=== PATIENT | male | born 1950 | race Caucasian/White ===

== ENCOUNTER → 2017-09-28 07:57 | Outpatient (REF) | payer SELFPAY ==
[2017-09-28 09:06] LABS: Add Manual Diff / Slide Review NO; Basophils Percent Auto 1.2 % (0-2); Eosinophils Percent Auto 3.4 % (2-4); Hematocrit 27.6 % (41-53); Hemoglobin 9.1 g/dL (13.5-17.5); Lymphocytes Percent Auto 16.6 % (25-40); Mean Corpuscular HGB Conc 32.9 % (30-36); Mean Corpuscular Hemoglobin 28.8 PG (26-34); Mean Corpuscular Volume 87.6 fL (80-100); Monocytes Percent Auto 5.5 % (3-14); Neutrophils Absolute Auto 4300 /uL (3000-5900); Neutrophils Percent Auto 73.3 % (50-75); Platelet Count 416 X10^3/uL (150-400); Red Blood Cell Count 3.15 X10^6/uL (4.5-5.9); Red Cell Distribution Width 15.2 % (11.6-14.8); White Blood Cell Count 5.8 X10^3/uL (4.5-11.0)
[2017-09-28 09:36] LABS: BUN Creatinine Ratio 14.5 (6-22); Calcium 8.5 mg/dL (8.4-10.2); Estimated Glomerular Filt Rate 20.1 mL/min (>60); Glucose 106 mg/dL (80-110); HEMOLYSIS < 15 (0-50); Potassium 4.5 mmol/L (3.4-5.1); Sodium 141 mmol/L (137-145)
== END ==
LOC: LAB 07:57
PROVIDERS: Visit Provider Internal Medicine
DX: L03.90 Cellulitis, unspecified (principal)
CPT/HCPCS: 36415; 80048; 85025

== ENCOUNTER → 2017-10-05 09:02 | Outpatient (REF) | payer SELFPAY ==
[2017-10-05 09:21] LABS: Add Manual Diff / Slide Review NO; Basophils Percent Auto 1.1 % (0-2); Eosinophils Percent Auto 4.7 % (2-4); Hematocrit 27.7 % (41-53); Hemoglobin 9.2 g/dL (13.5-17.5); Lymphocytes Percent Auto 17.5 % (25-40); Mean Corpuscular HGB Conc 33.1 % (30-36); Mean Corpuscular Hemoglobin 28.6 PG (26-34); Mean Corpuscular Volume 86.5 fL (80-100); Monocytes Percent Auto 6.1 % (3-14); Neutrophils Absolute Auto 4300 /uL (3000-5900); Neutrophils Percent Auto 70.6 % (50-75); Platelet Count 353 X10^3/uL (150-400); Red Blood Cell Count 3.21 X10^6/uL (4.5-5.9); Red Cell Distribution Width 15.3 % (11.6-14.8); White Blood Cell Count 6.1 X10^3/uL (4.5-11.0)
[2017-10-05 10:00] LABS: BUN Creatinine Ratio 17.7 (6-22); Calcium 8.6 mg/dL (8.4-10.2); Estimated Glomerular Filt Rate 20.1 mL/min (>60); Glucose 87 mg/dL (80-110); HEMOLYSIS < 15 (0-50); Potassium 4.4 mmol/L (3.4-5.1); Sodium 142 mmol/L (137-145)
== END ==
LOC: LAB 09:02
PROVIDERS: Visit Provider Internal Medicine
DX: D64.9 Anemia, unspecified (principal); L03.90 Cellulitis, unspecified
CPT/HCPCS: 80048; 85025

== ENCOUNTER → 2017-10-06 11:52 | Outpatient (REF) | payer SELFPAY ==
[2017-10-06 12:47] LABS: Clostridium Difficile Tox PCR NEGATIVE for C.diff
== END ==
LOC: LAB 11:52
PROVIDERS: Visit Provider Internal Medicine
DX: R19.7 Diarrhea, unspecified (principal)
CPT/HCPCS: 87493

== ENCOUNTER 2017-10-21 15:41 | Inpatient (IN) | payer OTHER, SELFPAY ==
[2017-10-21 15:43] VITALS: BP 155/59; PULSE 64; RESP 24; TEMP 36.8; O2SAT 91
--- NOTE | 2017-10-21 15:48 | DI.US.S_ITS ---
PROCEDURE: US PERIPH VENOUS LOW EXTREM BI INDICATIONS: r/o DVT TECHNIQUE: Real-time imaging, as well as color and pulse Doppler interrogation, were performed of the deep veins of both legs from the inguinal ligament to the popliteal fossa. COMPARISON: None. FINDINGS: The deep veins are normally compressible, and free of intraluminal thrombus. Color and pulse Doppler demonstrate normal phasic intravascular flow. There is normal augmentation response to distal compression maneuver. IMPRESSION: Negative for deep venous thrombosis. Note: Concordant preliminary findings given by the first sampler upon the completion of the examination to Dr. Cotto at 1620 hrs. [place] time on October 21, 2017. Dictated by: Vikas Tejada M.D. on 10/21/2017 at 15:26 Approved by: Vikas Tejada M.D. on 10/21/2017 at 15:27
--- NOTE | 2017-10-21 15:48 | DI.RAD.S_ITS ---
PROCEDURE: XR CHEST 1V INDICATIONS: shortness of breath TECHNIQUE: One view of the chest was acquired. COMPARISON: None. FINDINGS: Surgical changes and devices: Right internal jugular vein central venous catheter is present, tip of which is in the mid SVC. Lungs and pleura: No pleural effusions or pneumothorax. Lung volumes are low with bilateral mid and lower lung atelectasis versus pneumonia. Mediastinum: Mediastinal contours appear normal. Heart size is enlarged. Bones and chest wall: No suspicious bony lesions. Overlying soft tissues appear unremarkable. IMPRESSION: 1. Low lung volumes with bilateral atelectasis versus pneumonia. 2. Cardiomegaly. Dictated by: Andrea Munguia M.D. on 10/21/2017 at 16:03 Approved by: Andrea Munguia M.D. on 10/21/2017 at 16:04
[2017-10-21 16:38] LABS: Add Manual Diff / Slide Review NO; Basophils Percent Auto 0.8 % (0-2); Eosinophils Percent Auto 5.5 % (2-4); Hemoglobin 7.6 g/dL (13.5-17.5); Lymphocytes Percent Auto 11.7 % (25-40); Mean Corpuscular HGB Conc 33.2 % (30-36); Mean Corpuscular Hemoglobin 29.5 PG (26-34); Mean Corpuscular Volume 88.8 fL (80-100); Monocytes Percent Auto 6.8 % (3-14); Neutrophils Absolute Auto 5500 /uL (3000-5900); Neutrophils Percent Auto 75.2 % (50-75); Platelet Count 313 X10^3/uL (150-400); Red Blood Cell Count 2.59 X10^6/uL (4.5-5.9); Red Cell Distribution Width 16.5 % (11.6-14.8); White Blood Cell Count 7.3 X10^3/uL (4.5-11.0)
--- NOTE | 2017-10-21 16:43 | ED.SOB ---
HPI - SOB/Dyspnea General Chief Complaint: Shortness of Breath/Dyspnea Stated Complaint: Shortness of Breath / Syncopal Time Seen by Provider: 10/21/17 15:46 History of Present Illness Patient is a 67-year-old male who presents with increasing shortness of breath. 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 He also has left hand cellulitis diabetes hypertension and severe peripheral vascular disease. Today he is noted to be getting severely short of breath with minimal exertion. He laid down where he became unresponsive for brief period of time. His oxygen levels decreased quite significantly. No known or obvious aspiration. He also has renal failure with a creatinine of 4.2 not currently on dialysis thought to be due from vancomycin and other medications. He is still complaining of ?air hunger.? Related Data Home Medications Medication Instructions Recorded Confirmed Flush 1 dose DAILY 10/21/17 10/21/17 Humalog U-100 Insulin 1 dose SUB-Q DIRECTED 10/21/17 10/21/17 acetaminophen 650 mg PO Q4H PRN MDD 3000 mg 10/21/17 10/21/17 albuterol sulfate 1 vial INHALATION Q4H PRN 10/21/17 10/21/17 amlodipine 10 mg PO QPM 10/21/17 10/21/17 ascorbic acid (vitamin C) 250 mg PO DAILY 10/21/17 10/21/17 bisacodyl 5 - 10 mg PO PRN PRN 10/21/17 10/21/17 bisacodyl 10 mg FL DAILY PRN 10/21/17 10/21/17 bupropion HCl 200 mg PO QPM 10/21/17 10/21/17 cholecalciferol (vitamin D3) 2,000 unit PO DAILY 10/21/17 10/21/17 clonazepam 0.5 mg PO TID PRN MDD 3 10/21/17 10/21/17 clopidogrel 75 mg PO DAILY 10/21/17 10/21/17 esomeprazole magnesium [Nexium] 40 mg PO DAILY 10/21/17 10/21/17 ferrous sulfate 325 mg PO BID 10/21/17 10/21/17 fluticasone 1 spray INTRANASAL BID 10/21/17 10/21/17 furosemide 40 mg PO .ONCE 10/21/17 10/21/17 furosemide 60 mg PO DAILY 10/21/17 10/21/17 hydralazine 25 mg PO TID 10/21/17 10/21/17 insulin glargine 55 units SUB-Q DAILY 10/21/17 10/21/17 levothyroxine 200 mcg PO DAILY 10/21/17 10/21/17 loperamide 2 mg PO Q4H PRN 10/21/17 10/21/17 magnesium hydroxide [Milk of 30 ml PO PRN PRN 10/21/17 10/21/17 Magnesia] melatonin 5 mg PO BEDTIME 10/21/17 10/21/17 metoprolol tartrate 25 mg PO BID 10/21/17 10/21/17 mirtazapine 15 mg PO BEDTIME 10/21/17 10/21/17 multivitamin with minerals 1 tab PO DAILY 10/21/17 10/21/17 oxycodone 5 mg PO Q4H PRN 10/21/17 10/21/17 oxycodone 10 mg PO Q4H PRN 10/21/17 10/21/17 piperacillin-tazobactam [Zosyn] 1 dose IV BID 10/21/17 10/21/17 simvastatin 40 mg PO QPM 10/21/17 10/21/17 sodium phosphates [Fleet Enema] 1 dose FL PRN PRN 10/21/17 10/21/17 tamsulosin 0.4 mg PO QPM 10/21/17 10/21/17 Allergies Allergy/AdvReac Type Severity Reaction Status Date / Time INGREDIENT: NKA - NO KNOWN Allergy Unknown Uncoded 10/21/17 15:43 ALLERGIES Review of Systems Review of Systems All systems reviewed & are unremarkable except as noted in HPI and below Constitutional Denies chills, Denies fever(s), Denies lethargy and Denies weakness Cardiovascular Reports dyspnea Comments: Syncopal episode Respiratory Reports chest congestion, Denies hemoptysis, Denies excessive phlegm production and Reports dyspnea Gastrointestinal Gastrointestinal: Denies abdominal pain, Denies change in bowel habits, Denies diarrhea, Denies nausea and Denies vomiting Musculoskeletal Denies back pain, Denies muscle weakness, Denies numbness and Denies tingling Integumentary/Breasts Reports as per HPI, Denies pruritus, Denies erythema, Denies rash and Reports wounds Neurologic Denies numbness, Denies tingling and Denies weakness [facility] Medical History Chronic kidney disease (CKD) stage G4/A1, severely decreased glomerular filtration rate (GFR) between 15-29 mL/min/1.73 square meter and albuminuria creatinine ratio less than 30 mg/g (Acute) Diabetes (Acute) Hypertension (Acute) Peripheral vascular disease (Acute) Surgical History Above knee amputation of left lower extremity (Acute) Above knee amputation of right lower extremity (Acute) Exam Initial Vital Signs Initial Vital Signs: Vital Signs Temperature 98.3 F 10/21/17 15:43 Pulse Rate 64 10/21/17 15:43 Respiratory Rate 24 10/21/17 15:43 Blood Pressure 155/59 H 10/21/17 15:43 Pulse Oximetry 91 10/21/17 15:43 Const General: cooperative and well developed Nutritional Appearance: well nourished Orientation: alert, awake, oriented x3 and not confused Resp Effort & Inspection: normal respiratory effort Auscultation: rales and rhonchi Cardio Rhythm: regular rhythm Heart Sounds: S1 normal and S2 normal Skin Other: Left hand cellulitis currently dressed does not appear to be acute. Chronic stump wounds also in dressing bandage Neuro General: alert, awake and oriented x3 Course Orders Ordered: ED Orders 10/21/17 15:48 Consult to Respiratory Therapy Evaluate & Treat US periph venous low extrem bi Stat XR chest 1V Stat EKG-12 Lead Stat 10/21/17 16:30 B Type Natriuretic Peptide Stat Complete Blood Count AUTO DIFF Stat Comprehensive Metabolic Panel Stat Lactate (Lactic Acid) Stat Magnesium Stat Partial Thromboplastin Time Stat Prothrombin Time INR Stat Troponin with CK Cardiac Panel Stat Heparin Sodium/Dextrose (Heparin Drip) 25,000 unit in 500 mls @ 0 mls/hr IV CONT ULICES; Protocol Last Admin: 10/21/17 18:06 Dose: 18 units/kg/hr, 44.253 mls/hr Discontinued Medications Furosemide (Lasix) 60 mg IV NOW ONE Stop: 10/21/17 17:22 Last Admin: 10/21/17 17:55 Dose: 60 mg Heparin Sodium (Porcine) (Heparin) 10,000 unit IV NOW ONE Stop: 10/21/17 18:19 Last Admin: 10/21/17 18:24 Dose: 10,000 unit Vital Signs - 8 hr 10/21/17 15:43 10/21/17 17:00 10/21/17 17:52 Temperature 98.3 F Pulse Rate 64 66 66 Respiratory Rate 24 14 Blood Pressure 155/59 H Blood Pressure [Right Arm] 181/61 H Pulse Oximetry 91 94 10/21/17 18:00 Temperature Pulse Rate 62 Respiratory Rate Blood Pressure Blood Pressure [Right Arm] 175/70 H Pulse Oximetry 97 MDM - SOB/Dyspnea Lab Data Result diagrams: 10/21/17 16:30 10/21/17 16:30 Lab Results 10/21/17 10/21/17 10/21/17 Range/Units 16:30 16:30 16:30 WBC 7.3 (4.5-11.0) X10^3/uL RBC 2.59 L (4.5-5.9) X10^6/uL Hgb 7.6 L (13.5-17.5) g/dL Hct 23.0 L (41-53) % MCV 88.8 (80-100) fL MCH 29.5 (26-34) PG MCHC 33.2 (30-36) % RDW 16.5 H (11.6-14.8) % Plt Count 313 (150-400) X10^3/uL Neut % (Auto) 75.2 H (50-75) % Lymph % (Auto) 11.7 L (25-40) % [place] % (Auto) 6.8 (3-14) % Eos % (Auto) 5.5 H (2-4) % Baso % (Auto) 0.8 (0-2) % Neut # (Auto) 5500 (3946-5695) /uL PT 12.3 (10.1-12.7) SECONDS INR 1.1 (0.9-1.3) APTT 31 (26.4-36.2) SECONDS Sodium 144 (137-145) mmol/L Potassium 5.5 H (3.4-5.1) mmol/L Chloride 114 H (98-107) mmol/L Carbon Dioxide 15 L (22-32) mmol/L BUN 70 H (9-20) mg/dL Creatinine 4.50 H (0.66-1.25) mg/dL Estimated GFR 13.1 L (>60) mL/min BUN/Creatinine Ratio 15.6 (6-22) Glucose 140 H (80-110) mg/dL Lactate (0.7-2.1) mmol/L Calcium 8.6 (8.4-10.2) mg/dL Magnesium 2.1 (1.6-2.3) mg/dL Total Bilirubin 0.2 (0.2-1.3) mg/dL AST 33 (17-59) IU/L ALT 37 (21-72) IU/L Alkaline Phosphatase 124 (38-126) U/L Total Creatine Kinase 81 (55-170) U/L Troponin I < 0.012 (0.01-0.034) ng/mL B-Natriuretic Peptide 1080.0 H (<100) Total Protein 7.2 (6.3-8.2) g/dL Albumin 3.3 L (3.5-5.0) g/dL Globulin 3.9 (1.7-4.1) g/dL Albumin/Globulin Ratio 0.8 L (1.0-2.8) // Range/Units 16:30 WBC (4.5-11.0) X10^3/uL RBC (4.5-5.9) X10^6/uL Hgb (13.5-17.5) g/dL Hct (41-53) % MCV (80-100) fL MCH (26-34) PG MCHC (30-36) % RDW (11.6-14.8) % Plt Count (150-400) X10^3/uL Neut % (Auto) (50-75) % Lymph % (Auto) (25-40) % [place] % (Auto) (3-14) % Eos % (Auto) (2-4) % Baso % (Auto) (0-2) % Neut # (Auto) (3511-3925) /uL PT (10.1-12.7) SECONDS INR (0.9-1.3) APTT (26.4-36.2) SECONDS Sodium (137-145) mmol/L Potassium (3.4-5.1) mmol/L Chloride (98-107) mmol/L Carbon Dioxide (22-32) mmol/L BUN (9-20) mg/dL Creatinine (0.66-1.25) mg/dL Estimated GFR (>60) mL/min BUN/Creatinine Ratio (6-22) Glucose (80-110) mg/dL Lactate 0.5 L (0.7-2.1) mmol/L Calcium (8.4-10.2) mg/dL Magnesium (1.6-2.3) mg/dL Total Bilirubin (0.2-1.3) mg/dL AST (17-59) IU/L ALT (21-72) IU/L Alkaline Phosphatase (38-126) U/L Total Creatine Kinase (55-170) U/L Troponin I (0.01-0.034) ng/mL B-Natriuretic Peptide (<100) Total Protein (6.3-8.2) g/dL Albumin (3.5-5.0) g/dL Globulin (1.7-4.1) g/dL Albumin/Globulin Ratio (1.0-2.8) Imaging Data Chest x-ray: Radiologist's impression: PROCEDURE: XR CHEST 1V INDICATIONS: shortness of breath TECHNIQUE: One view of the chest was acquired. COMPARISON: None. FINDINGS: Surgical changes and devices: Right internal jugular vein central venous catheter is present, tip of which is in the mid SVC. Lungs and pleura: No pleural effusions or pneumothorax. Lung volumes are low with bilateral mid and lower lung atelectasis versus pneumonia. Mediastinum: Mediastinal contours appear normal. Heart size is enlarged. Bones and chest wall: No suspicious bony lesions. Overlying soft tissues appear unremarkable. IMPRESSION: 1. Low lung volumes with bilateral atelectasis versus pneumonia. 2. Cardiomegaly. Venous US: Radiologist's impression: PROCEDURE: US PERIPH VENOUS LOW EXTREM BI INDICATIONS: r/o DVT TECHNIQUE: Real-time imaging, as well as color and pulse Doppler interrogation, were performed of the deep veins of both legs from the inguinal ligament to the popliteal fossa. COMPARISON: None. FINDINGS: The deep veins are normally compressible, and free of intraluminal thrombus. Color and pulse Doppler demonstrate normal phasic intravascular flow. There is normal augmentation response to distal compression maneuver. IMPRESSION: Negative for deep venous thrombosis. Note: Concordant preliminary findings given by the enterprise systems engineer upon the completion of the examination to Dr. Cotto at 1620 hrs. [place] time on October 21, 2017. Dictated by: Vikas Tejada M.D. on 10/21/2017 at 15:26 ECG Data Attestation: I personally reviewed and interpreted this ECG as follows: Prior ECG tracings: not available for review Interpretation: Normal sinus rhythm rate [address] changes no prior to compare MDM Narrative Medical decision making narrative: Patient had a syncopal hypoxic episode concern for pulmonary embolism. However due to his severe of renal disease makes him a poor candidate for a CTA. I have tried to get in touch with multiple flame annealing machine setter and transfer. However this has been a challenging problem, there are no beds available for transfer.. I did finally talked with a [place] physician, who spoke with the flame annealing machine setter whose recommendation was if suspicion for pulmonary embolism the then to treat as such. No need to do a CT. Patient is not on dialysis he is still making urine. May stay at [facility] and be treated for CHF her and pulmonary embolisms. This is likely the patient also have congestive heart failure exacerbation. BNP is elevated he states that he does have a history of congestive heart failure. He has urinated quite a bit after IV Lasix. He is on minimal oxygen. At this point I do not believe him to need emergent dialysis for congestive heart failure. Currently treating for both. I have discussed risks and benefits with both patient and . They are understandable and agreeable. Dr. Albarran has been updated patient's symptoms and test results accepts patient off for now. Discharge Plan Departure Patient Disposition: Admitted As Inpatient Clinical Impression: Congestive heart failure, Pulmonary embolism, Acute and chronic respiratory failure with hypoxia Prescriptions: No Action furosemide 40 mg tablet 60 mg PO DAILY RF: 0 acetaminophen 325 mg Tablet 650 mg PO Q4H MDD 3000 mg PRN (Reason: Fever Or Pain) RF: 0 insulin glargine 100 unit/mL Solution 55 units Sub-Q DAILY RF: 0 hydralazine 25 mg Tablet 25 mg PO TID RF: 0 clopidogrel 75 mg tablet 75 mg PO DAILY RF: 0 simvastatin 40 mg Tablet 40 mg PO QPM RF: 0 tamsulosin 0.4 mg capsule,extended release 24hr 0.4 mg PO QPM RF: 0 piperacillin-tazobactam [Zosyn] 3.375 gram Recon Soln 1 dose IV BID RF: 0 ascorbic acid (vitamin C) 250 mg Tablet 250 mg PO DAILY RF: 0 amlodipine 10 mg Tablet 10 mg PO QPM RF: 0 ferrous sulfate 325 mg (65 mg iron) Tablet 325 mg PO BID RF: 0 esomeprazole magnesium [Nexium] 40 mg Capsule,Delayed Release(Dr/Ec) 40 mg PO DAILY RF: 0 levothyroxine 200 mcg Tablet 200 mcg PO DAILY RF: 0 multivitamin with minerals Tablet 1 tab PO DAILY RF: 0 mirtazapine 15 mg tablet,disintegrating 15 mg PO BEDTIME RF: 0 fluticasone 50 mcg/actuation spray,suspension 1 spray Intranasal BID RF: 0 bupropion HCl 200 mg Tablet Extended Release 12 Hr 200 mg PO QPM RF: 0 metoprolol tartrate 25 mg Tablet 25 mg PO BID RF: 0 melatonin 5 mg Tablet 5 mg PO BEDTIME RF: 0 cholecalciferol (vitamin D3) 2,000 unit Capsule 2,000 unit PO DAILY RF: 0 Flush 1 dose DAILY RF: 0 Humalog U-100 Insulin 1 dose Sub-Q DIRECTED RF: 0 furosemide 40 mg Tablet 40 mg PO .ONCE RF: 0 loperamide 2 mg Capsule 2 mg PO Q4H PRN (Reason: Diarrhea) RF: 0 clonazepam 0.5 mg Tablet 0.5 mg PO TID MDD 3 PRN (Reason: Anxiety) RF: 0 magnesium hydroxide [Milk of Magnesia] 400 mg/5 mL Suspension 30 ml PO PRN PRN (Reason: Constipation) RF: 0 bisacodyl 10 mg Suppository 10 mg FL DAILY PRN (Reason: Constipation) RF: 0 sodium phosphates [Fleet Enema] 19-7 gram/118 mL Enema 1 dose FL PRN PRN (Reason: Constipation) RF: 0 oxycodone 5 mg Tablet 5 mg PO Q4H PRN (Reason: pain level 3-6) RF: 0 oxycodone 5 mg Tablet 10 mg PO Q4H PRN (Reason: Pain (Scale Score 7-10)) RF: 0 bisacodyl 5 mg Tablet 5 - 10 mg PO PRN PRN (Reason: Constipation) RF: 0 albuterol sulfate 1 vial Inhalation Q4H PRN (Reason: Shortness Of Breath) RF: 0
[2017-10-21 16:45] LABS: INR 1.1 (0.9-1.3); Prothrombin Time 12.3 SECONDS (10.1-12.7)
[2017-10-21 16:48] LABS: PTT Partial Thromboplastin Tim 31 SECONDS (26.4-36.2)
[2017-10-21 16:49] LABS: Lactate (Lactic Acid) 0.5 mmol/L (0.7-2.1)
--- NOTE | 2017-10-21 16:49 | ED_ITS ---
HPI - SOB/Dyspnea General Chief Complaint: Shortness of Breath/Dyspnea Stated Complaint: Shortness of Breath / Syncopal Time Seen by Provider: 10/21/17 15:46 History of Present Illness Patient is a 67-year-old male who presents with increasing shortness of breath. 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 He also has left hand cellulitis diabetes hypertension and severe peripheral vascular disease. Today he is noted to be getting severely short of breath with minimal exertion. He laid down where he became unresponsive for brief period of time. His oxygen levels decreased quite significantly. No known or obvious aspiration. He also has renal failure with a creatinine of 4.2 not currently on dialysis thought to be due from vancomycin and other medications. He is still complaining of ?air hunger.? Related Data Home Medications Medication Instructions Recorded Confirmed Flush 1 dose DAILY 10/21/17 10/21/17 Humalog U-100 Insulin 1 dose SUB-Q DIRECTED 10/21/17 10/21/17 acetaminophen 650 mg PO Q4H PRN MDD 3000 mg 10/21/17 10/21/17 albuterol sulfate 1 vial INHALATION Q4H PRN 10/21/17 10/21/17 amlodipine 10 mg PO QPM 10/21/17 10/21/17 ascorbic acid (vitamin C) 250 mg PO DAILY 10/21/17 10/21/17 bisacodyl 5 - 10 mg PO PRN PRN 10/21/17 10/21/17 bisacodyl 10 mg OR DAILY PRN 10/21/17 10/21/17 bupropion HCl 200 mg PO QPM 10/21/17 10/21/17 cholecalciferol (vitamin D3) 2,000 unit PO DAILY 10/21/17 10/21/17 clonazepam 0.5 mg PO TID PRN MDD 3 10/21/17 10/21/17 clopidogrel 75 mg PO DAILY 10/21/17 10/21/17 esomeprazole magnesium [Nexium] 40 mg PO DAILY 10/21/17 10/21/17 ferrous sulfate 325 mg PO BID 10/21/17 10/21/17 fluticasone 1 spray INTRANASAL BID 10/21/17 10/21/17 furosemide 40 mg PO .ONCE 10/21/17 10/21/17 furosemide 60 mg PO DAILY 10/21/17 10/21/17 hydralazine 25 mg PO TID 10/21/17 10/21/17 insulin glargine 55 units SUB-Q DAILY 10/21/17 10/21/17 levothyroxine 200 mcg PO DAILY 10/21/17 10/21/17 loperamide 2 mg PO Q4H PRN 10/21/17 10/21/17 magnesium hydroxide [Milk of 30 ml PO PRN PRN 10/21/17 10/21/17 Magnesia] melatonin 5 mg PO BEDTIME 10/21/17 10/21/17 metoprolol tartrate 25 mg PO BID 10/21/17 10/21/17 mirtazapine 15 mg PO BEDTIME 10/21/17 10/21/17 multivitamin with minerals 1 tab PO DAILY 10/21/17 10/21/17 oxycodone 5 mg PO Q4H PRN 10/21/17 10/21/17 oxycodone 10 mg PO Q4H PRN 10/21/17 10/21/17 piperacillin-tazobactam [Zosyn] 1 dose IV BID 10/21/17 10/21/17 simvastatin 40 mg PO QPM 10/21/17 10/21/17 sodium phosphates [Fleet Enema] 1 dose OR PRN PRN 10/21/17 10/21/17 tamsulosin 0.4 mg PO QPM 10/21/17 10/21/17 Allergies Allergy/AdvReac Type Severity Reaction Status Date / Time INGREDIENT: NKA - NO KNOWN Allergy Unknown Uncoded 10/21/17 15:43 ALLERGIES Review of Systems Review of Systems All systems reviewed & are unremarkable except as noted in HPI and below Constitutional Denies chills, Denies fever(s), Denies lethargy and Denies weakness Cardiovascular Reports dyspnea Comments: Syncopal episode Respiratory Reports chest congestion, Denies hemoptysis, Denies excessive phlegm production and Reports dyspnea Gastrointestinal Gastrointestinal: Denies abdominal pain, Denies change in bowel habits, Denies diarrhea, Denies nausea and Denies vomiting Musculoskeletal Denies back pain, Denies muscle weakness, Denies numbness and Denies tingling Integumentary/Breasts Reports as per HPI, Denies pruritus, Denies erythema, Denies rash and Reports wounds Neurologic Denies numbness, Denies tingling and Denies weakness [facility]LY [facility] Medical History Chronic kidney disease (CKD) stage G4/A1, severely decreased glomerular filtration rate (GFR) between 15-29 mL/min/1.73 square meter and albuminuria creatinine ratio less than 30 mg/g (Acute) Diabetes (Acute) Hypertension (Acute) Peripheral vascular disease (Acute) Surgical History Above knee amputation of left lower extremity (Acute) Above knee amputation of right lower extremity (Acute) Exam Initial Vital Signs Initial Vital Signs: Vital Signs Temperature 98.3 F 10/21/17 15:43 Pulse Rate 64 10/21/17 15:43 Respiratory Rate 24 10/21/17 15:43 Blood Pressure 155/59 H 10/21/17 15:43 Pulse Oximetry 91 10/21/17 15:43 Const General: cooperative and well developed Nutritional Appearance: well nourished Orientation: alert, awake, oriented x3 and not confused Resp Effort & Inspection: normal respiratory effort Auscultation: rales and rhonchi Cardio Rhythm: regular rhythm Heart Sounds: S1 normal and S2 normal Skin Other: Left hand cellulitis currently dressed does not appear to be acute. Chronic stump wounds also in dressing bandage Neuro General: alert, awake and oriented x3 Course Orders Ordered: ED Orders 10/21/17 15:48 Consult to Respiratory Therapy Evaluate & Treat US periph venous low extrem bi Stat XR chest 1V Stat EKG-12 Lead Stat 10/21/17 16:30 B Type Natriuretic Peptide Stat Complete Blood Count AUTO DIFF Stat Comprehensive Metabolic Panel Stat Lactate (Lactic Acid) Stat Magnesium Stat Partial Thromboplastin Time Stat Prothrombin Time INR Stat Troponin with CK Cardiac Panel Stat Heparin Sodium/Dextrose (Heparin Drip) 25,000 unit in 500 mls @ 0 mls/hr IV CONT ULICES; Protocol Last Admin: 10/21/17 18:06 Dose: 18 units/kg/hr, 44.253 mls/hr Discontinued Medications Furosemide (Lasix) 60 mg IV NOW ONE Stop: 10/21/17 17:22 Last Admin: 10/21/17 17:55 Dose: 60 mg Heparin Sodium (Porcine) (Heparin) 10,000 unit IV NOW ONE Stop: 10/21/17 18:19 Last Admin: 10/21/17 18:24 Dose: 10,000 unit Vital Signs - 8 hr 10/21/17 15:43 10/21/17 17:00 10/21/17 17:52 Temperature 98.3 F Pulse Rate 64 66 66 Respiratory Rate 24 14 Blood Pressure 155/59 H Blood Pressure [Right Arm] 181/61 H Pulse Oximetry 91 94 10/21/17 18:00 Temperature Pulse Rate 62 Respiratory Rate Blood Pressure Blood Pressure [Right Arm] 175/70 H Pulse Oximetry 97 MDM - SOB/Dyspnea Lab Data Result diagrams: 10/21/17 16:30 10/21/17 16:30 Lab Results 10/21/17 10/21/17 10/21/17 Range/Units 16:30 16:30 16:30 WBC 7.3 (4.5-11.0) X10^3/uL RBC 2.59 L (4.5-5.9) X10^6/uL Hgb 7.6 L (13.5-17.5) g/dL Hct 23.0 L (41-53) % MCV 88.8 (80-100) fL MCH 29.5 (26-34) PG MCHC 33.2 (30-36) % RDW 16.5 H (11.6-14.8) % Plt Count 313 (150-400) X10^3/uL Neut % (Auto) 75.2 H (50-75) % Lymph % (Auto) 11.7 L (25-40) % [place] % (Auto) 6.8 (3-14) % Eos % (Auto) 5.5 H (2-4) % Baso % (Auto) 0.8 (0-2) % Neut # (Auto) 5500 (1369-8499) /uL PT 12.3 (10.1-12.7) SECONDS INR 1.1 (0.9-1.3) APTT 31 (26.4-36.2) SECONDS Sodium 144 (137-145) mmol/L Potassium 5.5 H (3.4-5.1) mmol/L Chloride 114 H (98-107) mmol/L Carbon Dioxide 15 L (22-32) mmol/L BUN 70 H (9-20) mg/dL Creatinine 4.50 H (0.66-1.25) mg/dL Estimated GFR 13.1 L (>60) mL/min BUN/Creatinine Ratio 15.6 (6-22) Glucose 140 H (80-110) mg/dL Lactate (0.7-2.1) mmol/L Calcium 8.6 (8.4-10.2) mg/dL Magnesium 2.1 (1.6-2.3) mg/dL Total Bilirubin 0.2 (0.2-1.3) mg/dL AST 33 (17-59) IU/L ALT 37 (21-72) IU/L Alkaline Phosphatase 124 (38-126) U/L Total Creatine Kinase 81 (55-170) U/L Troponin I < 0.012 (0.01-0.034) ng/mL B-Natriuretic Peptide 1080.0 H (<100) Total Protein 7.2 (6.3-8.2) g/dL Albumin 3.3 L (3.5-5.0) g/dL Globulin 3.9 (1.7-4.1) g/dL Albumin/Globulin Ratio 0.8 L (1.0-2.8) // Range/Units 16:30 WBC (4.5-11.0) X10^3/uL RBC (4.5-5.9) X10^6/uL Hgb (13.5-17.5) g/dL Hct (41-53) % MCV (80-100) fL MCH (26-34) PG MCHC (30-36) % RDW (11.6-14.8) % Plt Count (150-400) X10^3/uL Neut % (Auto) (50-75) % Lymph % (Auto) (25-40) % [place] % (Auto) (3-14) % Eos % (Auto) (2-4) % Baso % (Auto) (0-2) % Neut # (Auto) (0806-7649) /uL PT (10.1-12.7) SECONDS INR (0.9-1.3) APTT (26.4-36.2) SECONDS Sodium (137-145) mmol/L Potassium (3.4-5.1) mmol/L Chloride (98-107) mmol/L Carbon Dioxide (22-32) mmol/L BUN (9-20) mg/dL Creatinine (0.66-1.25) mg/dL Estimated GFR (>60) mL/min BUN/Creatinine Ratio (6-22) Glucose (80-110) mg/dL Lactate 0.5 L (0.7-2.1) mmol/L Calcium (8.4-10.2) mg/dL Magnesium (1.6-2.3) mg/dL Total Bilirubin (0.2-1.3) mg/dL AST (17-59) IU/L ALT (21-72) IU/L Alkaline Phosphatase (38-126) U/L Total Creatine Kinase (55-170) U/L Troponin I (0.01-0.034) ng/mL B-Natriuretic Peptide (<100) Total Protein (6.3-8.2) g/dL Albumin (3.5-5.0) g/dL Globulin (1.7-4.1) g/dL Albumin/Globulin Ratio (1.0-2.8) Imaging Data Chest x-ray: Radiologist's impression: PROCEDURE: XR CHEST 1V INDICATIONS: shortness of breath TECHNIQUE: One view of the chest was acquired. COMPARISON: None. FINDINGS: Surgical changes and devices: Right internal jugular vein central venous catheter is present, tip of which is in the mid SVC. Lungs and pleura: No pleural effusions or pneumothorax. Lung volumes are low with bilateral mid and lower lung atelectasis versus pneumonia. Mediastinum: Mediastinal contours appear normal. Heart size is enlarged. Bones and chest wall: No suspicious bony lesions. Overlying soft tissues appear unremarkable. IMPRESSION: 1. Low lung volumes with bilateral atelectasis versus pneumonia. 2. Cardiomegaly. Venous US: Radiologist's impression: PROCEDURE: US PERIPH VENOUS LOW EXTREM BI INDICATIONS: r/o DVT TECHNIQUE: Real-time imaging, as well as color and pulse Doppler interrogation, were performed of the deep veins of both legs from the inguinal ligament to the popliteal fossa. COMPARISON: None. FINDINGS: The deep veins are normally compressible, and free of intraluminal thrombus. Color and pulse Doppler demonstrate normal phasic intravascular flow. There is normal augmentation response to distal compression maneuver. IMPRESSION: Negative for deep venous thrombosis. Note: Concordant preliminary findings given by the biology internship upon the completion of the examination to Dr. Cotto at 1620 hrs. [place] time on October 21, 2017. Dictated by: Vikas Tejada M.D. on 10/21/2017 at 15:26 ECG Data Attestation: I personally reviewed and interpreted this ECG as follows: Prior ECG tracings: not available for review Interpretation: Normal sinus rhythm rate [address] changes no prior to compare MDM Narrative Medical decision making narrative: Patient had a syncopal hypoxic episode concern for pulmonary embolism. However due to his severe of renal disease makes him a poor candidate for a CTA. I have tried to get in touch with multiple plastic surgery manager and transfer. However this has been a challenging problem , there are no beds available for transfer.. I did finally talked with a [place] physician, who spoke with the plastic surgery manager whose recommendation was if suspicion for pulmonary embolism the then to treat as such. No need to do a CT. Patient is not on dialysis he is still making urine. May stay at [facility] and be treated for CHF her and pulmonary embolisms. This is likely the patient also have congestive heart failure exacerbation. BNP is elevated he states that he does have a history of congestive heart failure. He has urinated quite a bit after IV Lasix. He is on minimal oxygen. At this point I do not believe him to need emergent dialysis for congestive heart failure. Currently treating for both. I have discussed risks and benefits with both patient and . They are understandable and agreeable. Dr. Albarran has been updated patient's symptoms and test results accepts patient off for now. Discharge Plan Departure Patient Disposition: Admitted As Inpatient Clinical Impression: Congestive heart failure, Pulmonary embolism, Acute and chronic respiratory failure with hypoxia Prescriptions: No Action furosemide 40 mg tablet 60 mg PO DAILY RF: 0 acetaminophen 325 mg Tablet 650 mg PO Q4H MDD 3000 mg PRN (Reason: Fever Or Pain) RF: 0 insulin glargine 100 unit/mL Solution 55 units Sub-Q DAILY RF: 0 hydralazine 25 mg Tablet 25 mg PO TID RF: 0 clopidogrel 75 mg tablet 75 mg PO DAILY RF: 0 simvastatin 40 mg Tablet 40 mg PO QPM RF: 0 tamsulosin 0.4 mg capsule,extended release 24hr 0.4 mg PO QPM RF: 0 piperacillin-tazobactam [Zosyn] 3.375 gram Recon Soln 1 dose IV BID RF: 0 ascorbic acid (vitamin C) 250 mg Tablet 250 mg PO DAILY RF: 0 amlodipine 10 mg Tablet 10 mg PO QPM RF: 0 ferrous sulfate 325 mg (65 mg iron) Tablet 325 mg PO BID RF: 0 esomeprazole magnesium [Nexium] 40 mg Capsule,Delayed Release(Dr/Ec) 40 mg PO DAILY RF: 0 levothyroxine 200 mcg Tablet 200 mcg PO DAILY RF: 0 multivitamin with minerals Tablet 1 tab PO DAILY RF: 0 mirtazapine 15 mg tablet,disintegrating 15 mg PO BEDTIME RF: 0 fluticasone 50 mcg/actuation spray,suspension 1 spray Intranasal BID RF: 0 bupropion HCl 200 mg Tablet Extended Release 12 Hr 200 mg PO QPM RF: 0 metoprolol tartrate 25 mg Tablet 25 mg PO BID RF: 0 melatonin 5 mg Tablet 5 mg PO BEDTIME RF: 0 cholecalciferol (vitamin D3) 2,000 unit Capsule 2,000 unit PO DAILY RF: 0 Flush 1 dose DAILY RF: 0 Humalog U-100 Insulin 1 dose Sub-Q DIRECTED RF: 0 furosemide 40 mg Tablet 40 mg PO .ONCE RF: 0 loperamide 2 mg Capsule 2 mg PO Q4H PRN (Reason: Diarrhea) RF: 0 clonazepam 0.5 mg Tablet 0.5 mg PO TID MDD 3 PRN (Reason: Anxiety) RF: 0 magnesium hydroxide [Milk of Magnesia] 400 mg/5 mL Suspension 30 ml PO PRN PRN (Reason: Constipation) RF: 0 bisacodyl 10 mg Suppository 10 mg OR DAILY PRN (Reason: Constipation) RF: 0 sodium phosphates [Fleet Enema] 19-7 gram/118 mL Enema 1 dose OR PRN PRN (Reason: Constipation) RF: 0 oxycodone 5 mg Tablet 5 mg PO Q4H PRN (Reason: pain level 3-6) RF: 0 oxycodone 5 mg Tablet 10 mg PO Q4H PRN (Reason: Pain (Scale Score 7-10)) RF: 0 bisacodyl 5 mg Tablet 5 - 10 mg PO PRN PRN (Reason: Constipation) RF: 0 albuterol sulfate 1 vial Inhalation Q4H PRN (Reason: Shortness Of Breath) RF: 0
[2017-10-21 16:50] LABS: Alanine Aminotransferase 37 IU/L (21-72); Albumin 3.3 g/dL (3.5-5.0); Albumin Globulin Ratio 0.8 (1.0-2.8); Alkaline Phosphatase 124 U/L (38-126); Aspartate Aminotransferase 33 IU/L (17-59); BUN Creatinine Ratio 15.6 (6-22); Bilirubin Total 0.2 mg/dL (0.2-1.3); Blood Urea Nitrogen 70 mg/dL (9-20); Calcium 8.6 mg/dL (8.4-10.2); Carbon Dioxide 15 mmol/L (22-32); Chloride 114 mmol/L (98-107); Creatine Kinase 81 U/L (55-170); Estimated Glomerular Filt Rate 13.1 mL/min (>60); Globulin 3.9 g/dL (1.7-4.1); Glucose 140 mg/dL (80-110); HEMOLYSIS < 15 (0-50); Magnesium 2.1 mg/dL (1.6-2.3); Sodium 144 mmol/L (137-145); Total Protein 7.2 g/dL (6.3-8.2)
[2017-10-21 16:56] LABS: Potassium 5.5 mmol/L (3.4-5.1)
[2017-10-21 17:00] VITALS: BP 181/61; PULSE 66; O2SAT 94
[2017-10-21 17:02] LABS: Troponin I < 0.012 ng/mL (0.01-0.034)
[2017-10-21 17:52] VITALS: PULSE 66; RESP 14; O2SAT 92
[2017-10-21] MEDS: FUROSEMIDE 100 MG/10 ML VIAL 60 MG IV (17:55)
[2017-10-21 18:00] VITALS: BP 175/70; PULSE 62; O2SAT 97
[2017-10-21] MEDS: HEPARIN DRIP 25,000 UNIT/500 ML IV.SOLN 44.253 UNIT IV (18:06)
[2017-10-21] MEDS: HEPARIN 5,000 UNIT/ML VIAL 10000 UNIT IV (18:24)
[2017-10-21 19:30] VITALS: BP 160/58; PULSE 67; RESP 18; O2SAT 100
[2017-10-21 20:58] VITALS: BP 167/92; PULSE 69; RESP 20; TEMP 37.1; O2SAT 94
--- NOTE | 2017-10-21 21:28 | PC.NURSE ---
Pt to room 229 from E.R. awake, alert, conversant and giving appropriate medical history. Admits to dyspnea with exertion. 02 3L nc sats 94%. Denies pain. Heparin drip as per E.R. initiation via dedicated peripheral line. Pt stated cellulitis to left hand with dressing marked as changed today, but obviously oozing through dressing serosang fluid. Pt agreeable staff may remove to assess and redress. Left hand with slight erythema beyond wrist with edema. Healing scar to dorsal aspect with small open area visible oozing mucousy fluid. Cleansed with normal saline and dried. Applied telfa pad and wrapped with soft kerlix. Dr. Albarran in house and verbal order obtained pt may have oral foods and fluids. Pt was offered to reposition and declines at this time.
--- NOTE | 2017-10-21 22:01 | PC.NURSE ---
Dr. Albarran in to see patient.
--- NOTE | 2017-10-21 22:43 | PM.HP.1 ---
History of Present Illness Date Patient Seen: 10/21/17 Time Patient Seen: 22:00 Chief complaint: Shortness of Breath / Syncopal Narrative: 67-year-old man who was transferred from custodial facility to [facility] Emergency room for worsening of shortness of breath for 2 days. He was recently hospitalized at [facility] from end of August to September for right [id number] amputation stump infection with sepsis and cellulitis in the left hand. 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 Teto Taylor. He developed acute on chronic kidney injury during the hospitalization. His creatinine was 5.9. He did have improvement of his renal function with gentle IV hydration. Creatinine improved to around 3.2-3.3 prior to discharge. Wound tissue culture from his left hand initially grew beta hemolytic strep, non A and non B. He initially was treated with vancomycin, cefepime, and Flagyl for 7 days. Antibiotics was simplified to IV ceftriaxone with the plan of treatment till September 26, 2017. He was discharged to [facility]. In the past 2 days, he has been having worsening of shortness of breath. Lower extremity Doppler study did not reveal DVT at the emergency room. The ER physician was concerned about possible pulmonary embolism. Heparin drip was started and he was admitted to the medicine floor for possible pulmonary embolism. Patient History Medical History Chronic kidney disease (CKD) stage G4/A1, severely decreased glomerular filtration rate (GFR) between 15-29 mL/min/1.73 square meter and albuminuria creatinine ratio less than 30 mg/g (Acute) Diabetes (Acute) GERD (gastroesophageal reflux disease) (Acute) Hypertension (Acute) Hypothyroidism (Acute) Peripheral vascular disease (Acute) Surgical History Above knee amputation of left lower extremity (Acute) Above knee amputation of right lower extremity (Acute) Hx of cholecystectomy (Acute) Comment: Acute kidney injury on chronic kidney disease stage 4. Creatinine was around 5.5 about 6 weeks ago Recent above the knee amputation in the right leg Left [id number] amputation Insulin-dependent diabetes Peripheral arterial disease Hypothyroidism Hyperlipidemia GERD Cholecystectomy in 1978 Family & Social History Social History: household members spouse Prior Living Arrangements Skilled Nurse Facility Safety & Behavioral: Feels Safe in Current Yes Environment Been Physically Hurt or No Threatened By a Person Suicidal Ideation Description None Suicide Plan Description No Plan Tobacco & Substance use: Tobacco type cigarettes Smoking Status Former smoker alcohol intake never Substance Use Type does not use Comment: He is . He was living with his and son prior to his recent hospital admission. Denies alcohol drinking. He quit smoking cigarette smoking about 11 years ago. He was working as a full-time psychiatrist on [employer] Medications Medication Instructions Recorded Confirmed Type Flush 1 dose DAILY 10/21/17 10/21/17 History Humalog U-100 Insulin 1 dose SUB-Q DIRECTED 10/21/17 10/21/17 History acetaminophen 650 mg PO Q4H PRN MDD 3000 mg 10/21/17 10/21/17 History albuterol sulfate 1 vial INHALATION Q4H PRN 10/21/17 10/21/17 History amlodipine 10 mg PO QPM 10/21/17 10/21/17 History ascorbic acid (vitamin C) 250 mg PO DAILY 10/21/17 10/21/17 History bisacodyl 5 - 10 mg PO PRN PRN 10/21/17 10/21/17 History bisacodyl 10 mg [place] DAILY PRN 10/21/17 10/21/17 History bupropion HCl 200 mg PO QPM 10/21/17 10/21/17 History cholecalciferol (vitamin D3) 2,000 unit PO DAILY 10/21/17 10/21/17 History clonazepam 0.5 mg PO TID PRN MDD 3 10/21/17 10/21/17 History clopidogrel 75 mg PO DAILY 10/21/17 10/21/17 History esomeprazole magnesium [Nexium] 40 mg PO DAILY 10/21/17 10/21/17 History ferrous sulfate 325 mg PO BID 10/21/17 10/21/17 History fluticasone 1 spray INTRANASAL BID 10/21/17 10/21/17 History furosemide 40 mg PO .ONCE 10/21/17 10/21/17 History furosemide 60 mg PO DAILY 10/21/17 10/21/17 History hydralazine 25 mg PO TID 10/21/17 10/21/17 History insulin glargine 55 units SUB-Q DAILY 10/21/17 10/21/17 History levothyroxine 200 mcg PO DAILY 10/21/17 10/21/17 History loperamide 2 mg PO Q4H PRN 10/21/17 10/21/17 History magnesium hydroxide [Milk of 30 ml PO PRN PRN 10/21/17 10/21/17 History Magnesia] melatonin 5 mg PO BEDTIME 10/21/17 10/21/17 History metoprolol tartrate 25 mg PO BID 10/21/17 10/21/17 History mirtazapine 15 mg PO BEDTIME 10/21/17 10/21/17 History multivitamin with minerals 1 tab PO DAILY 10/21/17 10/21/17 History oxycodone 5 mg PO Q4H PRN 10/21/17 10/21/17 History oxycodone 10 mg PO Q4H PRN 10/21/17 10/21/17 History piperacillin-tazobactam [Zosyn] 1 dose IV BID 10/21/17 10/21/17 History simvastatin 40 mg PO QPM 10/21/17 10/21/17 History sodium phosphates [Fleet Enema] 1 dose NJ PRN PRN 10/21/17 10/21/17 History tamsulosin 0.4 mg PO QPM 10/21/17 10/21/17 History Allergies Allergy/AdvReac Type Severity Reaction Status Date / Time INGREDIENT: NKA - NO KNOWN Allergy Unknown Uncoded 10/21/17 15:43 ALLERGIES Review of Systems Constitutional Comments: Denies fever chills or sweats Cardiovascular Cardiovascular: Reports shortness of breath Comments: Denies chest pain Respiratory Respiratory: Reports chest congestion and Reports dyspnea Gastrointestinal Comments: No abdominal pain Genitourinary Comments: No dysuria Exam Vital Signs (past 8 hours): Vital Signs - 8 hr 10/21/17 15:43 10/21/17 17:00 10/21/17 17:52 Temperature 98.3 F Pulse Rate 64 66 66 Respiratory Rate 24 14 Blood Pressure 155/59 H Blood Pressure [Right Arm] 181/61 H Pulse Oximetry 91 94 10/21/17 18:00 10/21/17 19:30 10/21/17 20:58 Temperature 98.8 F Pulse Rate 62 67 69 Respiratory Rate 18 20 Blood Pressure 167/92 H Blood Pressure [Right Arm] 175/70 H 160/58 H Pulse Oximetry 97 100 94 Pulse Oximetry 94 Oxygen Delivery Method Nasal Cannula Oxygen Flow Rate 3 Narrative Exam Narrative: GENERAL: Well-appearing, well-nourished and in no acute distress. HEENT: Head normocephalic, atraumatic. Eyes pupils equal round NECK: Supple, no JVD, CHEST: Fine crackles on bilateral lower lung duncan, no wheezes appreciated CARDIAC: Regular rate and rhythm without murmurs, rubs or gallops. ABDOMEN: Soft, nontender. Normoactive bowel sounds all 4 quadrants. No guarding or rebound. EXTREMITIES: Right above the knee stump was dressed in dressing. No significant soft tissue erythema or swelling. Left leg prosthesis in place. Left hand wound was dressed in dressing NEUROLOGICAL: Alert and oriented; Normal muscle strength. SKIN: Warm, dry, no petechiae, no rashes or lesions. Objective Imaging Chest x-ray: Radiologist's impression: Lung volumes are low with bilateral mid and lower lung atelectasis versus pneumonia. Labs Result Diagrams: 10/21/17 16:30 10/21/17 16:30 Labs: Laboratory Results - last 24 hr 10/21/17 10/21/17 10/21/17 16:30 16:30 16:30 WBC 7.3 RBC 2.59 L Hgb 7.6 L Hct 23.0 L MCV 88.8 MCH 29.5 MCHC 33.2 RDW 16.5 H Plt Count 313 Neut % (Auto) 75.2 H Lymph % (Auto) 11.7 L [place] % (Auto) 6.8 Eos % (Auto) 5.5 H Baso % (Auto) 0.8 Neut # (Auto) 5500 PT 12.3 INR 1.1 APTT 31 Sodium 144 Potassium 5.5 H Chloride 114 H Carbon Dioxide 15 L BUN 70 H Creatinine 4.50 H Estimated GFR 13.1 L BUN/Creatinine Ratio 15.6 Glucose 140 H Lactate Calcium 8.6 Magnesium 2.1 Total Bilirubin 0.2 AST 33 ALT 37 Alkaline Phosphatase 124 Total Creatine Kinase 81 Troponin I < 0.012 B-Natriuretic Peptide 1080.0 H Total Protein 7.2 Albumin 3.3 L Globulin 3.9 Albumin/Globulin Ratio 0.8 L 10/21/17 16:30 WBC RBC Hgb Hct MCV MCH MCHC RDW Plt Count Neut % (Auto) Lymph % (Auto) [place] % (Auto) Eos % (Auto) Baso % (Auto) Neut # (Auto) PT INR APTT Sodium Potassium Chloride Carbon Dioxide BUN Creatinine Estimated GFR BUN/Creatinine Ratio Glucose Lactate 0.5 L Calcium Magnesium Total Bilirubin AST ALT Alkaline Phosphatase Total Creatine Kinase Troponin I B-Natriuretic Peptide Total Protein Albumin Globulin Albumin/Globulin Ratio Assessment & Plan Plan: Assessment/Plan Narrative: 1. Acute pulmonary edema, likely secondary to chronic kidney disease. We will start furosemide 80 mg IV q.8 hours. We will monitor his daily weight, input output. We will monitor his electrolytes and renal function. 2. Chronic kidney disease stage 4: He does have pulmonary edema on which is indication for dialysis. We have discussed the possibility of hemodialysis. He would like to try to avoid hemodialysis if possible. 3. Dyspnea, likely secondary to the pulmonary edema. I have low clinical suspicion for pulmonary embolism. We will discontinue heparin drip. 4. Hypothyroidism: Continue levothyroxine per outpatient dosing 5. Hypertension: Continue amlodipine and metoprolol 6. Metabolic acidosis and hyperkalemia: Secondary to chronic kidney disease. We will continue monitor. Consider adding sodium bicarb p.o. 7. Recent left hand cellulitis and abscess, status post recent surgical I&D. He was treated with IV ceftriaxone through September 26, 2017. He is currently on IV Zosyn. We will continue IV Zosyn for now. He has an outpatient surgery and infectious disease follow-up visit next Thursday. 8. Depression: Continue bupropion 9. Anemia, likely secondary to recent surgical blood loss and chronic kidney disease. Continue monitor his hematocrit and hemoglobin. Transfuse as needed. 10. Code status: Do not resuscitate. Code status was verified with patient himself. Quality VTE Deep Vein Thrombosis/Pulmonary Embolism Present on Admission: Yes
--- NOTE | 2017-10-21 22:58 | P.HP_ITS ---
History of Present Illness Date Patient Seen: 10/21/17 Time Patient Seen: 22:00 Chief complaint: Shortness of Breath / Syncopal Narrative: 67-year-old man who was transferred from assisted facility to [facility] Emergency room for worsening of shortness of breath for 2 days. He was recently hospitalized at [facility] from end of August to September for right dxtqi-vva-plry amputation stump infection with sepsis and cellulitis in the left hand. 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 Teto Taylor. He developed acute on chronic kidney injury during the hospitalization. His creatinine was 5.9. He did have improvement of his renal function with gentle IV hydration. Creatinine improved to around 3.2-3.3 prior to discharge. Wound tissue culture from his left hand initially grew beta hemolytic strep, non A and non B. He initially was treated with vancomycin, cefepime, and Flagyl for 7 days. Antibiotics was simplified to IV ceftriaxone with the plan of treatment till September 26, 2017. He was discharged to [facility]. In the past 2 days, he has been having worsening of shortness of breath. Lower extremity Doppler study did not reveal DVT at the emergency room. The ER physician was concerned about possible pulmonary embolism. Heparin drip was started and he was admitted to the medicine floor for possible pulmonary embolism. Patient History Medical History Chronic kidney disease (CKD) stage G4/A1, severely decreased glomerular filtration rate (GFR) between 15-29 mL/min/1.73 square meter and albuminuria creatinine ratio less than 30 mg/g (Acute) Diabetes (Acute) GERD (gastroesophageal reflux disease) (Acute) Hypertension (Acute) Hypothyroidism (Acute) Peripheral vascular disease (Acute) Surgical History Above knee amputation of left lower extremity (Acute) Above knee amputation of right lower extremity (Acute) Hx of cholecystectomy (Acute) Comment: Acute kidney injury on chronic kidney disease stage 4. 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 He was living with his and son prior to his recent hospital admission. Denies alcohol drinking. He quit smoking cigarette smoking about 11 years ago. He was working as a full-time psychiatrist on [email or web address] Medications Medication Instructions Recorded Confirmed Type Flush 1 dose DAILY 10/21/17 10/21/17 History Humalog U-100 Insulin 1 dose SUB-Q DIRECTED 10/21/17 10/21/17 History acetaminophen 650 mg PO Q4H PRN MDD 3000 mg 10/21/17 10/21/17 History albuterol sulfate 1 vial INHALATION Q4H PRN 10/21/17 10/21/17 History amlodipine 10 mg PO QPM 10/21/17 10/21/17 History ascorbic acid (vitamin C) 250 mg PO DAILY 10/21/17 10/21/17 History bisacodyl 5 - 10 mg PO PRN PRN 10/21/17 10/21/17 History bisacodyl 10 mg [place] DAILY PRN 10/21/17 10/21/17 History bupropion HCl 200 mg PO QPM 10/21/17 10/21/17 History cholecalciferol (vitamin D3) 2,000 unit PO DAILY 10/21/17 10/21/17 History clonazepam 0.5 mg PO TID PRN MDD 3 10/21/17 10/21/17 History clopidogrel 75 mg PO DAILY 10/21/17 10/21/17 History esomeprazole magnesium [Nexium] 40 mg PO DAILY 10/21/17 10/21/17 History ferrous sulfate 325 mg PO BID 10/21/17 10/21/17 History fluticasone 1 spray INTRANASAL BID 10/21/17 10/21/17 History furosemide 40 mg PO .ONCE 10/21/17 10/21/17 History furosemide 60 mg PO DAILY 10/21/17 10/21/17 History hydralazine 25 mg PO TID 10/21/17 10/21/17 History insulin glargine 55 units SUB-Q DAILY 10/21/17 10/21/17 History levothyroxine 200 mcg PO DAILY 10/21/17 10/21/17 History loperamide 2 mg PO Q4H PRN 10/21/17 10/21/17 History magnesium hydroxide [Milk of 30 ml PO PRN PRN 10/21/17 10/21/17 History Magnesia] melatonin 5 mg PO BEDTIME 10/21/17 10/21/17 History metoprolol tartrate 25 mg PO BID 10/21/17 10/21/17 History mirtazapine 15 mg PO BEDTIME 10/21/17 10/21/17 History multivitamin with minerals 1 tab PO DAILY 10/21/17 10/21/17 History oxycodone 5 mg PO Q4H PRN 10/21/17 10/21/17 History oxycodone 10 mg PO Q4H PRN 10/21/17 10/21/17 History piperacillin-tazobactam [Zosyn] 1 dose IV BID 10/21/17 10/21/17 History simvastatin 40 mg PO QPM 10/21/17 10/21/17 History sodium phosphates [Fleet Enema] 1 dose [place] PRN PRN 10/21/17 10/21/17 History tamsulosin 0.4 mg PO QPM 10/21/17 10/21/17 History Allergies Allergy/AdvReac Type Severity Reaction Status Date / Time INGREDIENT: NKA - NO KNOWN Allergy Unknown Uncoded 10/21/17 15:43 ALLERGIES Review of Systems Constitutional Comments: Denies fever chills or sweats Cardiovascular Cardiovascular: Reports shortness of breath Comments: Denies chest pain Respiratory Respiratory: Reports chest congestion and Reports dyspnea Gastrointestinal Comments: No abdominal pain Genitourinary Comments: No dysuria Exam Vital Signs (past 8 hours): Vital Signs - 8 hr 3 10/21/17 15:43 10/21/17 17:00 10/21/17 17:52 Temperature 98.3 F Pulse Rate 64 66 66 Respiratory Rate 24 14 Blood Pressure 155/59 H Blood Pressure [Right Arm] 181/61 H Pulse Oximetry 91 94 3 10/21/17 18:00 10/21/17 19:30 10/21/17 20:58 Temperature 98.8 F Pulse Rate 62 67 69 Respiratory Rate 18 20 Blood Pressure 167/92 H Blood Pressure [Right Arm] 175/70 H 160/58 H Pulse Oximetry 97 100 94 Pulse Oximetry 94 Oxygen Delivery Method Nasal Cannula Oxygen Flow Rate 3 Narrative Exam Narrative: GENERAL: Well-appearing, well-nourished and in no acute distress. HEENT: Head normocephalic, atraumatic. Eyes pupils equal round NECK: Supple, no JVD, CHEST: Fine crackles on bilateral lower lung duncan, no wheezes appreciated CARDIAC: Regular rate and rhythm without murmurs, rubs or gallops. ABDOMEN: Soft, nontender. Normoactive bowel sounds all 4 quadrants. No guarding or rebound. EXTREMITIES: Right above the knee stump was dressed in dressing. No significant soft tissue erythema or swelling. Left leg prosthesis in place. Left hand wound was dressed in dressing NEUROLOGICAL: Alert and oriented; Normal muscle strength. SKIN: Warm, dry, no petechiae, no rashes or lesions. Objective Imaging Chest x-ray: Radiologist's impression: Lung volumes are low with bilateral mid and lower lung atelectasis versus pneumonia. Labs Result Diagrams: 10/21/17 16:30 10/21/17 16:30 Labs: Laboratory Results - last 24 hr 10/21/17 10/21/17 10/21/17 16:30 16:30 16:30 WBC 7.3 RBC 2.59 L Hgb 7.6 L Hct 23.0 L MCV 88.8 MCH 29.5 MCHC 33.2 RDW 16.5 H Plt Count 313 Neut % (Auto) 75.2 H Lymph % (Auto) 11.7 L [place] % (Auto) 6.8 Eos % (Auto) 5.5 H Baso % (Auto) 0.8 Neut # (Auto) 5500 PT 12.3 INR 1.1 APTT 31 Sodium 144 Potassium 5.5 H Chloride 114 H Carbon Dioxide 15 L BUN 70 H Creatinine 4.50 H Estimated GFR 13.1 L BUN/Creatinine Ratio 15.6 Glucose 140 H Lactate Calcium 8.6 Magnesium 2.1 Total Bilirubin 0.2 AST 33 ALT 37 Alkaline Phosphatase 124 Total Creatine Kinase 81 Troponin I < 0.012 B-Natriuretic Peptide 1080.0 H Total Protein 7.2 Albumin 3.3 L Globulin 3.9 Albumin/Globulin Ratio 0.8 L 10/21/17 16:30 WBC RBC Hgb Hct MCV MCH MCHC RDW Plt Count Neut % (Auto) Lymph % (Auto) [place] % (Auto) Eos % (Auto) Baso % (Auto) Neut # (Auto) PT INR APTT Sodium Potassium Chloride Carbon Dioxide BUN Creatinine Estimated GFR BUN/Creatinine Ratio Glucose Lactate 0.5 L Calcium Magnesium Total Bilirubin AST ALT Alkaline Phosphatase Total Creatine Kinase Troponin I B-Natriuretic Peptide Total Protein Albumin Globulin Albumin/Globulin Ratio Assessment & Plan Plan: Assessment/Plan Narrative: 1. Acute pulmonary edema, likely secondary to chronic kidney disease. We will start furosemide 80 mg IV q.8 hours. We will monitor his daily weight, input output. We will monitor his electrolytes and renal function. 2. Chronic kidney disease stage 4: He does have pulmonary edema on which is indication for dialysis. We have discussed the possibility of hemodialysis. He would like to try to avoid hemodialysis if possible. 3. Dyspnea, likely secondary to the pulmonary edema. I have low clinical suspicion for pulmonary embolism. We will discontinue heparin drip. 4. Hypothyroidism: Continue levothyroxine per outpatient dosing 5. Hypertension: Continue amlodipine and metoprolol 6. Metabolic acidosis and hyperkalemia: Secondary to chronic kidney disease. We will continue monitor. Consider adding sodium bicarb p.o. 7. Recent left hand cellulitis and abscess, status post recent surgical I&D. He was treated with IV ceftriaxone through September 26, 2017. He is currently on IV Zosyn. We will continue IV Zosyn for now. He has an outpatient surgery and infectious disease follow-up visit next Thursday. 8. Depression: Continue bupropion 9. Anemia, likely secondary to recent surgical blood loss and chronic kidney disease. Continue monitor his hematocrit and hemoglobin. Transfuse as needed. 10. Code status: Do not resuscitate. Code status was verified with patient himself. Quality VTE Deep Vein Thrombosis/Pulmonary Embolism Present on Admission: Yes
[2017-10-21] MEDS: FUROSEMIDE 100 MG/10 ML VIAL 80 MG IV (22:59)
[2017-10-21] MEDS: HYDRALAZINE 25 MG TABLET PO (23:01)
[2017-10-21] MEDS: MIRTAZAPINE 15 MG PO (23:02)
[2017-10-21] MEDS: METOPROLOL 25 MG TABLET PO (23:02)
[2017-10-22] VITALS (12 sets, daily range): BP systolic 140–170; BP diastolic 48–72; PULSE 58–71; RESP 20–27; TEMP 36.6–37.4; O2SAT 2–97; BMI 48.9
[2017-10-22 05:56] LABS: Add Manual Diff / Slide Review NO; Basophils Percent Auto 0.6 % (0-2); Eosinophils Percent Auto 4.9 % (2-4); Hemoglobin 7.3 g/dL (13.5-17.5); Lymphocytes Percent Auto 15.8 % (25-40); Mean Corpuscular Hemoglobin 29.2 PG (26-34); Mean Corpuscular Volume 88.4 fL (80-100); Monocytes Percent Auto 8.8 % (3-14); Neutrophils Absolute Auto 4100 /uL (3000-5900); Neutrophils Percent Auto 69.9 % (50-75); Platelet Count 274 X10^3/uL (150-400); Red Blood Cell Count 2.49 X10^6/uL (4.5-5.9); Red Cell Distribution Width 16.3 % (11.6-14.8); White Blood Cell Count 5.9 X10^3/uL (4.5-11.0)
[2017-10-22 06:00] LABS: BUN Creatinine Ratio 17.6 (6-22); Blood Urea Nitrogen 74 mg/dL (9-20); Calcium 8.4 mg/dL (8.4-10.2); Carbon Dioxide 17 mmol/L (22-32); Chloride 114 mmol/L (98-107); Estimated Glomerular Filt Rate 14.2 mL/min (>60); Glucose 81 mg/dL (80-110); HEMOLYSIS < 15 (0-50); Potassium 5.1 mmol/L (3.4-5.1); Sodium 144 mmol/L (137-145)
[2017-10-22] MEDS: PANTOPRAZOLE 40 MG TABLET PO (06:09)
[2017-10-22] MEDS: FUROSEMIDE 100 MG/10 ML VIAL 80 MG IV ×3 (06:09→22:02)
[2017-10-22] MEDS: FERROUS SULFATE 325 MG TABLET PO ×2 (09:13→20:26)
[2017-10-22] MEDS: METOPROLOL 25 MG TABLET PO ×2 (09:13→20:26)
[2017-10-22] MEDS: CLOPIDOGREL 75 MG TABLET PO (09:13)
[2017-10-22] MEDS: HYDRALAZINE 25 MG TABLET PO ×3 (09:14→20:26)
[2017-10-22] MEDS: CHOLECALCIFEROL (VITAMIN D3) 1,000 UNIT TABLET 2000 UNIT PO (09:14)
[2017-10-22] MEDS: MULTIVITAMIN 1 TABLET 1 TAB PO (09:14)
[2017-10-22] MEDS: LEVOTHYROXINE 100 MCG TABLET 200 MCG PO (09:14)
[2017-10-22] MEDS: PIPERACILLIN-TAZO 2.25 GM/50 ML FROZ.PIGGY IV ×2 (10:19→18:02)
[2017-10-22] MEDS: INSULIN GLARGINE 100 UNIT/ML 3ML PEN 55 UNIT SUBCUT (11:05)
[2017-10-22] MEDS: ASCORBIC ACID 500 MG TABLET 250 MG PO (11:06)
--- NOTE | 2017-10-22 11:59 | P.PN_ITS ---
Subjective Date Patient Seen: 10/22/17 Time Patient Seen: 10:40 Interval history: The patient reports feeling better, though still persistently weak. He states he does not wish to be transferred to another hospital, or at least not back to [place]. Care is reviewed with his Analisa by phone at bedside. Exam Vital Signs (past 8 hours): Vital Signs - 8 hr 3 10/22/17 05:00 10/22/17 08:04 Temperature 99.3 F 97.8 F Pulse Rate 66 58 L Respiratory Rate 24 27 H Blood Pressure 148/72 H 140/48 H Pulse Oximetry 95 95 Pulse Oximetry 95 Oxygen Delivery Method Nasal Cannula Oxygen Flow Rate 3 Narrative Exam Narrative: GENERAL: Appears chronically ill, with mildly labored breathing at rest and otherwise fatigude HEENT: Eyes pupils equal round NECK: Supple, no JVD CHEST: Fine crackles on bilateral lower lung duncan, no wheezes appreciated CARDIAC: Regular rate and rhythm without murmurs, rubs or gallops ABDOMEN: Soft, nontender EXTREMITIES: Right above the knee stump was dressed in dressing. No significant soft tissue erythema or swelling. Left leg prosthesis in place. Left hand wound was dressed with dressing clean, dry and intact NEUROLOGICAL: Alert and oriented; Normal muscle strength SKIN: Warm, dry, no petechiae, no rashes or lesions Objective Labs Result Diagrams: 10/22/17 05:14 10/22/17 05:14 Labs: Laboratory Results - last 24 hr 10/21/17 10/21/17 10/21/17 16:30 16:30 16:30 WBC 7.3 RBC 2.59 L Hgb 7.6 L Hct 23.0 L MCV 88.8 MCH 29.5 MCHC 33.2 RDW 16.5 H Plt Count 313 Neut % (Auto) 75.2 H Lymph % (Auto) 11.[address] [place] % (Auto) 6.8 Eos % (Auto) 5.5 H Baso % (Auto) 0.8 Neut # (Auto) 5500 PT 12.3 INR 1.1 APTT 31 Sodium 144 Potassium 5.5 H Chloride 114 H Carbon Dioxide 15 L BUN 70 H Creatinine 4.50 H Estimated GFR 13.1 L BUN/Creatinine Ratio 15.6 Glucose 140 H Lactate Calcium 8.6 Magnesium 2.1 Total Bilirubin 0.2 AST 33 ALT 37 Alkaline Phosphatase 124 Total Creatine Kinase 81 Troponin I < 0.012 B-Natriuretic Peptide 1080.0 H Total Protein 7.2 Albumin 3.3 L Globulin 3.9 Albumin/Globulin Ratio 0.8 L 10/21/17 10/22/17 10/22/17 16:30 05:14 05:14 WBC 5.9 RBC 2.49 L Hgb 7.3 L Hct 22.0 L MCV 88.4 MCH 29.2 MCHC 33.0 RDW 16.3 H Plt Count 274 Neut % (Auto) 69.9 Lymph % (Auto) 15.[address] [place] % (Auto) 8.8 Eos % (Auto) 4.9 H Baso % (Auto) 0.6 Neut # (Auto) 4100 PT INR APTT Sodium 144 Potassium 5.1 Chloride 114 H Carbon Dioxide 17 L BUN 74 H Creatinine 4.20 H Estimated GFR 14.2 L BUN/Creatinine Ratio 17.6 Glucose 81 Lactate 0.5 L Calcium 8.4 Magnesium Total Bilirubin AST ALT Alkaline Phosphatase Total Creatine Kinase Troponin I B-Natriuretic Peptide Total Protein Albumin Globulin Albumin/Globulin Ratio Assessment & Plan Plan: Assessment/Plan Narrative: 1. Acute pulmonary edema, likely secondary to chronic kidney disease. Improved with net 2200 mL output overnight. Continue furosemide 80 mg IV q.8 hours. We will monitor his daily weight, input output. We will monitor his electrolytes and renal function. 2. Chronic kidney disease stage 4: He does have pulmonary edema on which is indication for dialysis, but has improved with diuresis with improvement in renal function, possibly relating to pre renal low cardiac output failure. We have discussed the possibility of hemodialysis. He would like to try to avoid hemodialysis if possible. 3. Dyspnea, likely secondary to the pulmonary edema. Low clinical suspicion for pulmonary embolism. 4. Diabetes mellitus, type 2. Decrease Lantus insulin to 50 units this morning given hypoglycemia. Continue to monitor closely. 5. Hypothyroidism: Continue levothyroxine per outpatient dosing. 6. Hypertension: Continue amlodipine and metoprolol. 7. Metabolic acidosis and hyperkalemia: Improved. Secondary to chronic kidney disease. We will continue monitor. Add sodium bicarbonate when CHF improved. 8. Recent left hand cellulitis and abscess, status post recent surgical I&D. He was treated with IV ceftriaxone through September 26, 2017. He is currently on IV Zosyn. We will continue IV Zosyn for now. He has an outpatient surgery and infectious disease follow-up visit next Thursday. 9. Depression: Continue bupropion. Adequately controlled. 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 10. Anemia, likely secondary to recent surgical blood loss and chronic kidney disease. Continue monitor his hematocrit and hemoglobin. Transfuse as needed, though at this point will hold off and reassess tomorrow given ongoing CHF concerns. 11. Code status: Do not resuscitate. Code status was verified with patient himself. 12. Disposition: The patient requires ongoing inpatient care. Consult physical therapy. Quality VTE Deep Vein Thrombosis/Pulmonary Embolism Present on Admission: Yes
--- NOTE | 2017-10-22 13:31 | PC.NURSE ---
AM NOTE - slowly awakens, speech is clear but sob, and moderately labored,cbg noted to be 57 and as req, given apple juice, stayed with pt until completed and set up for breakfast, only ate small portion of meal, recheck of blood sugar 118, RT in for assessment, when 02 removed 89-90%, 2l 95%, occassional congested cough, bs coarse, no philip able to use urinal, some scrotal redness, pericare performed and barrier cream to scrotum and old scarring buttock area, per pt hx pressure ulcer from last hospitalization, amish aka's, barrier dsg r c,d,i, kerlex wrap to l hand c,d,i discussed lantus with and dose reduced to 50 units daily, later per req, pt was placed in sling and luís lift to chair, juliette tsf and states breathing is easier when upright., declines pain medication.
--- NOTE | 2017-10-22 16:15 | PT.IPTN ---
Physical Therapy Treatment Note M3 PT-IP Subjective Start: 10/22/17 16:12 Freq: NEEDED Status: Active Protocol: Document 10/22/17 16:12 AB (Rec: 10/22/17 16:15 AB [id number]) Subjective Physical Therapy Visit Type Type Patient Refusal Notes checked on pt for PT eval. pt has bilateral LE amputations and does not have his prosthesis available. Asked pt if he can ask his to bring his w/c and prosthesis for PT and agreed. asked pt if PT [facility] and sitting bal/ juliette and pt refused. stated that the bed is not comfortable for him.
[2017-10-22] MEDS: SIMVASTATIN 40 MG TABLET PO (17:01)
[2017-10-22] MEDS: AMLODIPINE 5 MG TABLET 10 MG PO (17:02)
[2017-10-22] MEDS: buPROPion SR 100 MG TAB 200 MG PO (17:02)
[2017-10-22] MEDS: SODIUM CHLORIDE 0.9% FLUSH 10 ML IV ×2 (19:07→22:02)
[2017-10-22] MEDS: INSULIN ASPART 100 UNIT/ML INSULN PEN SUBCUT (20:25)
[2017-10-22] MEDS: MIRTAZAPINE 15 MG PO (20:26)
[2017-10-23] VITALS (15 sets, daily range): BP systolic 140–159; BP diastolic 62–78; PULSE 59–65; RESP 16–22; TEMP 36.5–37.1; O2SAT 2–98
--- NOTE | 2017-10-23 | DI.ECHO.S_ITS ---
[place] +---------+ [facility] +---------+ : : [address] : : : : [id number] : : : : Phone: [phone]+ Echocardiogram Report + + :Name: HALLIE GARCIA Study Date: 10/23/2017 Height: 75 in : :[facility] Weight: 275 lb : : Gender: Male BSA: 2.5 m2 : :: 1950 Age: 67 yrs BP: 158/64 mmHg: :Reason For Study: SOB : : Performed By: Farideh Angel : :Referring: HEMANT PERALTA : + + Interpretation Summary 1. Normal left ventricular size with mildly increased wall thickness and normal systolic function with an estimated EF of 60-65% 2. Mildly dilated right ventricle with normal systolic function. The estimated RVSP is 47 mm Hg. The estimated right atrial pressure is normal. 3. Aortic valve sclerosis without stenosis. Trace insufficiency. There is no old study available for comparison Procedure: A two-dimensional transthoracic echocardiogram with color flow and Doppler was performed. The study quality was technically adequate. There is no prior echocardiogram noted for this patient. The heart rate ranged between 60-63 bpm during the study. Left Ventricle: There is mild concentric left ventricular hypertrophy. The left ventricle is normal in size. The ejection fraction is estimated to be 60- 65%. Right Ventricle: The right ventricle is mildly dilated. The right ventricular systolic function is normal. Atria: The left atrium is mildly dilated. Right atrial size is normal. No color doppler evidence for an ASD. Mitral Valve: The mitral valve leaflets appear thickened, but open well. There is trace mitral regurgitation. Aortic Valve: The aortic valve is trileaflet. The aortic valve opens well. There is mild aortic valve sclerosis. There is no aortic valve stenosis. There is trace aortic regurgitation. Tricuspid Valve: The tricuspid valve leaflets are thin and pliable. There is mild tricuspid regurgitation. The right ventricular systolic pressure is estimated at 47 mmHg assuming a right atrial pressure of 8 mm Hg. Pulmonic Valve: The pulmonic valve is not well seen, but is grossly normal. There is a trace or physiologic amount of pulmonic regurgitation. Great Vessels: The aortic root is normal size. The ascending aorta is mildly enlarged. Diameter of the ascending aorta is 3.8 cm. The pulmonary artery is normal size. The IVC is dilated (diameter is greater than 2.1 cm) yet it collapses greater than 50% with a sniff. This suggests a right atrial pressure of 8 mm Hg. Pericardium/ Pleura There is no pericardial effusion. There is no pleural effusion. MMode/2D Measurements & Calculations LVIDd: 5.3 cm LVOT diam: 2.3 cm LVIDs: 3.7 cm Ao root diam: 3.6 cm FS: 30.8 % asc Aorta Diam: 3.8 cm EPSS: 1.3 cm IVSd: 1.3 cm LVPWd: 1.3 cm LV sexton. diameter/BSA (cm/m^2): 2.1 LV sys. diameter/BSA (cm/m^2): 1.5 LA A2 area: 23.3 cm2 RA long axis: 5.7 cm LA A4 area: 29.2 cm2 RA area: 22.1 cm2 LA length (vol): 5.9 cm RA vol: 72.8 ml LA vol: 98.2 ml RA : 29.0 ml/m2 LA vol index: 39.1 ml/m2 IVC diam: 2.7 cm RVD1 (basal): 4.6 cm TAPSE: 1.5 cm Doppler Measurements & Calculations Ao V2 max: 126.7 cm/sec LVOT Max Kye: 84.7 cm/sec Ao V2 mean: 92.9 cm/sec LV V1 max P.9 mmHg Ao max P.4 mmHg LV V1 VTI: 21.4 cm Ao mean P.8 mmHg SHARON(I,D): 2.8 cm2 Ao V2 VTI: 30.9 cm SHARON(V,D): 2.7 cm2 sev ratio: 0.69 SHARON indexed to BSA (cm^2/m^2): 1.1 MV E max kye: 127.2 cm/sec TR max kye: 312.3 cm/sec MV A max kye: 108.1 cm/sec TR max P.0 mmHg MV E/A: 1.2 Med Peak E' Kye: 4.5 cm/sec E/E' med: 28.1 Lat Peak E' Kye: 7.4 cm/sec E/E' lat: 17.3 E/e' average: 22.7 MV dec time: 0.19 sec Reading Physician:FLORENTIN
[2017-10-23] MEDS: PIPERACILLIN-TAZO 2.25 GM/50 ML FROZ.PIGGY IV ×3 (02:00→17:55)
[2017-10-23 05:54] LABS: Add Manual Diff / Slide Review NO; Basophils Percent Auto 0.7 % (0-2); Hematocrit 23.8 % (41-53); Hemoglobin 7.7 g/dL (13.5-17.5); Lymphocytes Percent Auto 16.2 % (25-40); Mean Corpuscular HGB Conc 32.4 % (30-36); Mean Corpuscular Hemoglobin 28.6 PG (26-34); Mean Corpuscular Volume 88.4 fL (80-100); Monocytes Percent Auto 8.4 % (3-14); Neutrophils Absolute Auto 3800 /uL (3000-5900); Neutrophils Percent Auto 69.7 % (50-75); Platelet Count 315 X10^3/uL (150-400); Red Blood Cell Count 2.69 X10^6/uL (4.5-5.9); Red Cell Distribution Width 16.2 % (11.6-14.8); White Blood Cell Count 5.5 X10^3/uL (4.5-11.0)
[2017-10-23 05:56] LABS: BUN Creatinine Ratio 19.3 (6-22); Blood Urea Nitrogen 77 mg/dL (9-20); Calcium 8.6 mg/dL (8.4-10.2); Carbon Dioxide 18 mmol/L (22-32); Chloride 110 mmol/L (98-107); Glucose 88 mg/dL (80-110); HEMOLYSIS < 15 (0-50); Potassium 4.9 mmol/L (3.4-5.1); Sodium 142 mmol/L (137-145)
[2017-10-23] MEDS: FUROSEMIDE 100 MG/10 ML VIAL 80 MG IV ×3 (06:27→21:55)
[2017-10-23] MEDS: LEVOTHYROXINE 100 MCG TABLET 200 MCG PO (06:55)
[2017-10-23] MEDS: PANTOPRAZOLE 40 MG TABLET PO (06:55)
[2017-10-23] MEDS: CHOLECALCIFEROL (VITAMIN D3) 1,000 UNIT TABLET 2000 UNIT PO (09:11)
[2017-10-23] MEDS: ASCORBIC ACID 500 MG TABLET 250 MG PO (09:11)
[2017-10-23] MEDS: CLOPIDOGREL 75 MG TABLET PO (09:11)
[2017-10-23] MEDS: HYDRALAZINE 25 MG TABLET PO ×3 (09:12→21:21)
[2017-10-23] MEDS: FERROUS SULFATE 325 MG TABLET PO ×2 (09:12→21:27)
[2017-10-23] MEDS: MULTIVITAMIN 1 TABLET 1 TAB PO (09:13)
[2017-10-23] MEDS: METOPROLOL 25 MG TABLET PO ×2 (09:13→21:21)
[2017-10-23] MEDS: SODIUM CHLORIDE 0.9% FLUSH 10 ML IV ×3 (09:13→21:55)
[2017-10-23] MEDS: INSULIN GLARGINE 100 UNIT/ML 3ML PEN 50 UNIT SUBCUT (09:15)
--- NOTE | 2017-10-23 10:20 | PC.NURSE ---
AM NOTE - awakens easily, breathing mildly labored at rest, pt states he feels that his breathing has improved, 2l 96-97%, when 02 cannula out nares and pt asleep, sat dip to mid 80's, trial 1l sat 90-91%, continued with 2l at this time, hr 88, +bt, denies discomfort, discussed plan for mobilizing oob later am.
--- NOTE | 2017-10-23 11:21 | P.PN_ITS ---
Subjective Date Patient Seen: 10/23/17 Interval history: The patient reports feeling better with improved breathing. However he remains persistently weak. Physical therapy has been consulted. Exam Vital Signs (past 8 hours): Vital Signs - 8 hr 3 10/23/17 03:15 10/23/17 07:30 10/23/17 10:14 Temperature 98.4 F 97.7 F Pulse Rate 59 L 60 Respiratory Rate 20 22 Blood Pressure 140/62 H 150/62 H Pulse Oximetry 96 97 96 Pulse Oximetry 96 Oxygen Delivery Method Nasal Cannula Oxygen Flow Rate 2 Narrative Exam Narrative: GENERAL: Well-appearing, well-nourished and in no acute distress. HEENT: Head normocephalic, atraumatic. Eyes pupils equal round NECK: Supple, no JVD, CHEST: Fine crackles on bilateral lower lung duncan, no wheezes appreciated CARDIAC: Regular rate and rhythm without murmurs, rubs or gallops. ABDOMEN: Soft, nontender. EXTREMITIES: Right above the knee stump was dressed in dressing. No significant soft tissue erythema or swelling. Left leg prosthesis in place. Left hand wound was dressed in dressing NEUROLOGICAL: Alert and oriented; Normal muscle strength. SKIN: Warm, dry, no petechiae, no rashes or lesions. Objective Labs Result Diagrams: 10/23/17 05:22 10/23/17 05:22 Labs: Laboratory Results - last 24 hr 10/23/17 10/23/17 05:22 05:22 WBC 5.5 RBC 2.69 L Hgb 7.7 L Hct 23.8 L MCV 88.4 MCH 28.6 MCHC 32.4 RDW 16.2 H Plt Count 315 Neut % (Auto) 69.7 Lymph % (Auto) 16.2 L [place] % (Auto) 8.4 Eos % (Auto) 5.0 H Baso % (Auto) 0.7 Neut # (Auto) 3800 Sodium 142 Potassium 4.9 Chloride 110 H Carbon Dioxide 18 L BUN 77 H Creatinine 4.00 H Estimated GFR 15.0 L BUN/Creatinine Ratio 19.3 Glucose 88 Calcium 8.6 Assessment & Plan Plan: Assessment/Plan Narrative: 1. Acute pulmonary edema, likely secondary to chronic kidney disease. Improved with net 2200 mL output the 1st night and 1100 mL output last night. Continue furosemide 80 mg IV q.8 hours. We will monitor his daily weight, input output. We will monitor his electrolytes and renal function. Check echocardiogram to evaluate LV function. Also, assess for RV volume overload or pulmonary hypertension given concern for possible pulmonary embolism, though unable to perform CT angiogram due to renal failure. Ventilation perfusion scan is also not feasible due to facility constraints on performing this testing. Lower extremity Doppler was negative. 2. Chronic kidney disease stage 4: Appears to be improving. Possible resolving superimposed acute kidney injury due to recent elevated vancomycin level on 10/17/2017 (20.3) and congestive heart failure. Continue to monitor closely. 3. Dyspnea, likely secondary to the pulmonary edema. Low clinical suspicion for pulmonary embolism, with considerations as above. 4. Diabetes mellitus, type 2. Improved hypoglycemia. Decrease Lantus insulin to 45 units this morning given hypoglycemia with blood sugar of 70 this morning. Continue to monitor closely. 5. Hypothyroidism: Continue levothyroxine per outpatient dosing. 6. Hypertension: Continue amlodipine and metoprolol. 7. Metabolic acidosis and hyperkalemia: Improved. Secondary to chronic kidney disease. We will continue monitor. Add sodium bicarbonate when CHF improved. 8. Recent left hand cellulitis and abscess, status post recent surgical I&D. He was treated with IV ceftriaxone through September 26, 2017. He is currently on IV Zosyn. We will continue IV Zosyn for now. He has an outpatient surgery and infectious disease follow-up visit next Thursday. 9. Depression: Continue bupropion 400 mg daily, his home dosing. Adequately controlled. 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 10. Anemia, likely secondary to recent surgical blood loss and chronic kidney disease. Continue monitor his hematocrit and hemoglobin. Transfuse as needed, though at this point will hold off and reassess tomorrow given ongoing CHF concerns. 11. DVT prophylaxis: Subcutaneous heparin. 12. Code status: Do not resuscitate. Code status was verified with patient himself. 13. Disposition: The patient requires ongoing inpatient care. Consult physical therapy. Quality VTE Deep Vein Thrombosis/Pulmonary Embolism Present on Admission: Yes
--- NOTE | 2017-10-23 12:11 | PT.IIE ---
Surgical History (Last Reviewed 10/21/17 @ 22:48 by Jacy Albarran MD) Above knee amputation of left lower extremity (Acute) Above knee amputation of right lower extremity (Acute) Hx of cholecystectomy (Acute) Medical History (Last Reviewed 10/21/17 @ 22:47 by Jacy Albarran MD) Chronic kidney disease (CKD) stage G4/A1, severely decreased glomerular filtration rate (GFR) between 15-29 mL/min/1.73 square meter and albuminuria creatinine ratio less than 30 mg/g (Acute) Diabetes (Acute) GERD (gastroesophageal reflux disease) (Acute) Hypertension (Acute) Hypothyroidism (Acute) Peripheral vascular disease (Acute) Physical Therapy Inpatient Evaluation/Re-Eval Medical Review Prior Functional Status Diet/Fluid Consistency Regular Communication no known deficits Mobility and Gait Prior to R AKA pt could walk short distances <50ft with FWW and bilat BKA prosthesis. Used a manual wheelchair for longer distances. Since the R AKA pt is unable to stand/walk at all, uses a slide board for transfers and either a manual wc or power wc (pt getting a new PWC this week). Prior Functional Level (Other details) was at [facility] prior to this hospitalization. Social History Household Members spouse Living Arrangements House Number of Floors (Floors) Two Floors Number of Stairs To Enter/Railing? ramped entry, pt doesn't need to use stairs to access 2nd floor at all. 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 Patient/Caregiver Goals go home Therapy Pain Assessment Pain When Pain Assessed At Rest Pain Present Pain Present Denied Pain PT-Bed Mobility Assessment Rolling Type of Rolling Roll to Right Roll to Left Level of Assist Independent PT-Transfer Assessment Transfers Transfer Destination Bed Chair Transfer Technique Mechanical Lift Transfer Ability Level of Assist Total Assistance Comments Mobility Comments Pt able to roll with use of bed rails quite easily. Pt doesn't have his L prosthetic leg here yet, so a mechanical lift was used to get pt up to the chair. Gait Assessment Comments Gait Comments not assessed Stair Climbing Assessment Comments Stair Climbing Comments not assessed PT-Balance Assessment Sitting Balance and Reactions Static Sitting Balance Ability Good Dynamic Sitting Balance Ability Fair Orientation Orientation/Cognition Level of Alertness Alert Orientation Name Age Birthday Month Date Year Day of Week Place Situation Language Function Ability No Deficits Noted Safety Awareness Understands Safety Issues Memory Description No Deficits Noted Gross Range of Motion Upper Extremity ROM Assessment Within Functional Limits Lower Extremity ROM Assessment Within Functional Limits Impairments Pt's L knee appears to lack full extension, lacking approx 5 degrees. Strength Comments Strength Comments strength not tested this session, LUE limited by pain from cellulitis Physical Therapy Treatment Education Education Provided Safety PT Summary Assessment and Plan Potential Rehabilitation Potential Good Status of Condition at Evaluation Stable Summary Impairments Strength Balance Bed Mobility Transfers Gait Activity Tolerance Progress Towards Goals Progressing Toward Goals Assessment Summary Pt's son is bringing L prosthetic leg in today. Once it is donned appropriately, will complete the remainder of mobility assessments for transfers. Pt reports he was performing board transfers with SBA only. If assist is available at home at this level, then pt could probably discharge home safely and continue with HH or OPPT. Will continue to assess. Goals Bed Mobility Goal Independent Transfer Goal Standby Assistance Slide Board Days to Meet Goals 2 Frequency of Treatment Frequency Of Treatment Twice a Day Treatment Plan Physical Therapy Treatment Plan Bed Mobility Training Transfer Training Therapeutic Exercise Discharge Planning Recommendations To Nursing Amount of Assist Needed 2 Person Assist Mechanical Lift Discharge Recommendations PT Discharge Recommendations Home with Assistance Home Health Outpatient PT Provider Visit Care Team Role Provider Type Mayito Boss MD Family Provider Non-Staff Primary Care Provider Specialty: Internal Medicine Flavia Cotto DO Emergency Provider Physician Specialty: Emergency Medicine Jacy Albarran MD Admit Provider Physician Attending Provider Specialty: Internal Medicine
[2017-10-23] MEDS: INSULIN ASPART 100 UNIT/ML INSULN PEN SUBCUT ×3 (12:29→21:21)
[2017-10-23] MEDS: HEPARIN 5,000 UNIT/ML VIAL 5000 UNIT SUBCUT ×2 (12:30→21:22)
--- NOTE | 2017-10-23 15:43 | PT.IPTN ---
Physical Therapy Treatment Note Physical Therapy Visit Type Type Patient Refusal Physical Therapy Visit Comments Patient Comments Pt visiting with son, politely declines to participate in therapy session at this time, more than willing to participate tomorrow. MWC and sliding board were left in patient's room for next session.
[2017-10-23] MEDS: AMLODIPINE 5 MG TABLET 10 MG PO (17:49)
[2017-10-23] MEDS: SIMVASTATIN 40 MG TABLET PO (17:49)
[2017-10-23] MEDS: buPROPion SR 100 MG TAB 400 MG PO (17:50)
--- NOTE | 2017-10-23 19:33 | RT ---
PT MAY NEED O2 W/ SLEEP DUE TO POSSIBLE SUSAN (NON-COMPLIANT W/ CPAP).
--- NOTE | 2017-10-23 19:35 | PC.NURSE ---
Pt luís lifted from recliner into bed for echo at beginning of shift. Echo completed and pt returned to recliner per request. Denies pain. Peripheral iv has failed and central line utilized after discussion with pt as this is used @ rehab facility per pt for iv antibiotics. IV antibiotic infused as ordered without difficulty. Left hand dressing removed as pt reports this is changed daily. Healing incisional site to left hand. Serosang drainage on telfa, but no active drainage observed. Cleansed with normal saline and dried. Covered with telfa and secured with kerlix.
--- NOTE | 2017-10-23 19:36 | RT ---
BREATH SOUNDS ARE DECREASED IN BLL, OTHERWISE CLEAR. RR = 20. BRONCHODILATOR NOT NEEDED AT THIS TIME.
[2017-10-23] MEDS: MIRTAZAPINE 15 MG PO (21:21)
--- NOTE | 2017-10-23 22:52 | PC.NURSE ---
Pt requests dressing to right AKA be changed. Barrier dressing x 2 removed. Per pt direction, silver impregnated strips removed. Informed pt do not have access to these resources to replace tonight. Vertical open incision with deep red wound bed. Gently cleansed [place] colored slough from wound with normal saline and dried. Covered with coversite x 1 and will pass on to NOC RN to request wound care from provider during A.M. rounds. Pt is content with this action and direction. Continues to deny pain.
[2017-10-24] VITALS (13 sets, daily range): BP systolic 105–155; BP diastolic 57–74; PULSE 16–105; RESP 15–22; TEMP 36.4–37.1; O2SAT 93–98
[2017-10-24] MEDS: PIPERACILLIN-TAZO 2.25 GM/50 ML FROZ.PIGGY IV ×3 (01:22→17:22)
[2017-10-24 05:17] LABS: Add Manual Diff / Slide Review NO; Basophils Percent Auto 0.9 % (0-2); Eosinophils Percent Auto 6.3 % (2-4); Hematocrit 23.8 % (41-53); Hemoglobin 7.7 g/dL (13.5-17.5); Lymphocytes Percent Auto 17.9 % (25-40); Mean Corpuscular HGB Conc 32.1 % (30-36); Mean Corpuscular Volume 87.2 fL (80-100); Monocytes Percent Auto 7.8 % (3-14); Neutrophils Absolute Auto 3600 /uL (3000-5900); Neutrophils Percent Auto 67.1 % (50-75); Platelet Count 351 X10^3/uL (150-400); Red Blood Cell Count 2.73 X10^6/uL (4.5-5.9); White Blood Cell Count 5.4 X10^3/uL (4.5-11.0)
[2017-10-24 05:22] LABS: BUN Creatinine Ratio 18.9 (6-22); Blood Urea Nitrogen 83 mg/dL (9-20); Calcium 8.6 mg/dL (8.4-10.2); Carbon Dioxide 19 mmol/L (22-32); Chloride 110 mmol/L (98-107); Estimated Glomerular Filt Rate 13.4 mL/min (>60); Glucose 101 mg/dL (80-110); HEMOLYSIS < 15 (0-50); Potassium 4.5 mmol/L (3.4-5.1); Sodium 144 mmol/L (137-145)
[2017-10-24] MEDS: LEVOTHYROXINE 100 MCG TABLET 200 MCG PO (07:08)
[2017-10-24] MEDS: PANTOPRAZOLE 40 MG TABLET PO (07:09)
[2017-10-24] MEDS: FUROSEMIDE 100 MG/10 ML VIAL 80 MG IV (07:09)
[2017-10-24] MEDS: METOPROLOL 25 MG TABLET PO ×2 (08:51→20:53)
[2017-10-24] MEDS: FERROUS SULFATE 325 MG TABLET PO ×2 (08:51→20:46)
[2017-10-24] MEDS: CLOPIDOGREL 75 MG TABLET PO (08:51)
[2017-10-24] MEDS: HYDRALAZINE 25 MG TABLET PO ×3 (08:51→20:47)
[2017-10-24] MEDS: CHOLECALCIFEROL (VITAMIN D3) 1,000 UNIT TABLET 2000 UNIT PO (08:52)
[2017-10-24] MEDS: HEPARIN 5,000 UNIT/ML VIAL 5000 UNIT SUBCUT ×2 (08:53→20:47)
[2017-10-24] MEDS: ASCORBIC ACID 500 MG TABLET 250 MG PO (08:53)
[2017-10-24] MEDS: INSULIN GLARGINE 100 UNIT/ML 3ML PEN 45 UNIT SUBCUT (08:55)
[2017-10-24] MEDS: MULTIVITAMIN 1 TABLET 1 TAB PO (08:57)
[2017-10-24] MEDS: SODIUM CHLORIDE 0.9% FLUSH 10 ML IV ×2 (08:57→20:54)
--- NOTE | 2017-10-24 11:12 | P.PN_ITS ---
Subjective Date Patient Seen: 10/24/17 Time Patient Seen: 11:09 Interval history: No acute distress no new complaints Exam Vital Signs (past 8 hours): Vital Signs - 8 hr 3 10/24/17 06:43 10/24/17 07:50 10/24/17 07:51 Temperature 98.0 F 97.5 F L Pulse Rate 16 L 91 H 59 L Respiratory Rate 16 16 22 Blood Pressure 138/64 H 149/68 H Pulse Oximetry 96 98 3 10/24/17 09:35 Temperature Pulse Rate Respiratory Rate Blood Pressure Pulse Oximetry 96 Pulse Oximetry 96 Oxygen Delivery Method Room Air Oxygen Flow Rate 1 Narrative Exam Narrative: Sitting up inbed breathing comfortably HEENT exam unremarkable Lungs clear Heart regular rhythm Abdomen soft Extremities right above the knee amputation with dressing in place left hand wound also dressed Neuro exam awake alert oriented no focal deficits speech normal Skin warm and dry Objective Labs Result Diagrams: 10/24/17 04:52 10/24/17 04:52 Labs: Laboratory Results - last 24 hr 10/24/17 10/24/17 04:52 04:52 WBC 5.4 RBC 2.73 L Hgb 7.7 L Hct 23.8 L MCV 87.2 MCH 28.0 MCHC 32.1 RDW 16.0 H Plt Count 351 Neut % (Auto) 67.1 Lymph % (Auto) 17.9 L [place] % (Auto) 7.8 Eos % (Auto) 6.3 H Baso % (Auto) 0.9 Neut # (Auto) 3600 Sodium 144 Potassium 4.5 Chloride 110 H Carbon Dioxide 19 L BUN 83 H Creatinine 4.40 H Estimated GFR 13.4 L BUN/Creatinine Ratio 18.9 Glucose 101 Calcium 8.6 B-Natriuretic Peptide 692.0 H Assessment & Plan Plan: Assessment/Plan Narrative: 1. Acute pulmonary edema, likely secondary to chronic kidney disease and diastolic just dysfunction. He has had consistently good diuresis plan to switch to oral Lasix We will monitor his daily weight, input output. We will monitor his electrolytes and renal function. Echo showing normal LV function he has had a good clinical improvement with the Lasix I do not think he has a pulmonary embolism 2. Chronic kidney disease stage 4: Appears to be improving. Possible resolving superimposed acute kidney injury due to recent elevated vancomycin level on 10/17/2017 (20.3) and congestive heart failure. Continue to monitor closely. 3. Dyspnea, likely secondary to the pulmonary edema. Low clinical suspicion for pulmonary embolism, with considerations as above. 4. Diabetes mellitus, type 2. Improved hypoglycemia. Decrease Lantus insulin to 45 units this morning given hypoglycemia with blood sugar of 70 this morning. Continue to monitor closely. 5. Hypothyroidism: Continue levothyroxine per outpatient dosing. 6. Hypertension: Continue amlodipine and metoprolol. 7. Metabolic acidosis and hyperkalemia: Improved. Secondary to chronic kidney disease. We will continue monitor. Add sodium bicarbonate when CHF improved. 8. Recent left hand cellulitis and abscess, status post recent surgical I&D. He was treated with IV ceftriaxone through September 26, 2017. He is currently on IV Zosyn. We will continue IV Zosyn for now. He has an outpatient surgery and infectious disease follow-up visit next Thursday. We will arrange for outpatient Zosyn antibiotics 9. Depression: Continue bupropion 400 mg daily, his home dosing. Adequately controlled. 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 10. Anemia, likely secondary to recent surgical blood loss and chronic kidney disease. Continue monitor his hematocrit and hemoglobin. Transfuse as needed, though at this point will hold off and reassess tomorrow given ongoing CHF concerns. 11. DVT prophylaxis: Subcutaneous heparin. 12. Code status: Do not resuscitate. Code status was verified with patient himself. 13. Disposition: The patient requires ongoing inpatient care. Consult physical therapy. Probably discharge to home on Thursday Quality VTE Deep Vein Thrombosis/Pulmonary Embolism Present on Admission: Yes
--- NOTE | 2017-10-24 11:48 | PT.IPTN ---
Physical Therapy Treatment Note M2 PT-IP Current Condition Start: 10/22/17 16:12 Freq: NEEDED Status: Active Protocol: Document 10/23/17 11:52 RS (Rec: 10/23/17 12:11 RS [id number]) Physical Therapy Current Condition Current Condition Evaluation Date 10/23/17 Treatment Diagnosis SOB, new R AKA, hx L BKA, impaired mobility Onset Date a week or so ago M3 PT-IP Subjective Start: 10/22/17 16:12 Freq: NEEDED Status: Active Protocol: Document 10/24/17 11:42 AB (Rec: 10/24/17 11:48 AB [id number]) Subjective Physical Therapy Visit Type Type Patient Refusal Notes checked on pt and pt's L prosthesis is here but no liner or furniture decals inspector present. pt stated that he uses it without sometimes. asked pt if he is ready to transfer and pt refused. stated that he just wants to rest this morning and to check this afternoon.
[2017-10-24] MEDS: INSULIN ASPART 100 UNIT/ML INSULN PEN SUBCUT ×3 (11:57→20:46)
--- NOTE | 2017-10-24 14:14 | PT.IPTN ---
Physical Therapy Treatment Note M2 PT-IP Current Condition Start: 10/22/17 16:12 Freq: NEEDED Status: Active Protocol: Document 10/23/17 11:52 RS (Rec: 10/23/17 12:11 RS [id number]) Physical Therapy Current Condition Current Condition Evaluation Date 10/23/17 Treatment Diagnosis SOB, new R AKA, hx L BKA, impaired mobility Onset Date a week or so ago M3 PT-IP Subjective Start: 10/22/17 16:12 Freq: NEEDED Status: Active Protocol: Document 10/24/17 14:13 AB (Rec: 10/24/17 14:14 AB [id number]) Subjective Physical Therapy Visit Type Type Patient Refusal Notes checked on pt and pt sitting up on chair. pt stated that he is going back to [facility] tomorrow and does not think he has to do any PT here in the hospital. stated that PT at [facility] will finish up with caregiver training with his son and then he will go home. pt refused PT tx this afternoon.
[2017-10-24] MEDS: LOPERAMIDE 2 MG CAPSULE PO ×2 (14:15→18:16)
--- NOTE | 2017-10-24 15:44 | CM.DANOTE ---
Addendum entered by ANH Hannah 10/24/17 15:57: New SNF auth from [facility] likely needed. This [employer] did not ask [facility] about this today and SNF auth request has not been started w/[facility]. Original Note: DCP Assessment: Pt is a 67 yo male, resident of [place], comes to us from [facility]. Pt admitted for SOB/CHF/infection in left hand requiring IV abx. Pt's PCP is Dr Boss; Insurance is [facility]. Reviewed chart, met w/pt and Dr Moore at bedside, then later spoke w/spouse Analisa on the phone, explained SW role. Pt lives w/spouse and 30 yo son Presley; who assists w/pt's care at home. Per H+P :67-year-old man who was transferred from halfway facility to [facility] Emergency room for worsening of shortness of breath for 2 days. He was recently hospitalized at [facility] from end of August to September for right [id number] amputation stump infection with sepsis and cellulitis in the left hand. 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 Teto Taylor. He developed acute on chronic kidney injury during the hospitalization. Pt was able to function mod indp w/bilateral prosthesis until his recent Rt AKA. he has used a manual w/c when needed and is awaiting the delivery of his new power w/c w/in a few weeks. Pt has been at [facility] for approx 4-5 weeks, post AKA at [facility], for recovery and strength training. According to the conversation w/pt, Dr Moore, and spouse, it has been decided pt will return to [facility] w/7 days IV Zosyn (until pt can get further instruction from his ID Doc). updated Shannon at [facility] re above. Now awaiting CB from Shannon w/input re acceptance back and bed availability tomorrow, Thursday. New PASSR completed in case one is needed. ANH Hannah
[2017-10-24] MEDS: AMLODIPINE 5 MG TABLET 10 MG PO (17:18)
[2017-10-24] MEDS: SIMVASTATIN 40 MG TABLET PO (17:19)
[2017-10-24] MEDS: buPROPion SR 100 MG TAB 400 MG PO (17:19)
[2017-10-24] MEDS: MIRTAZAPINE 15 MG PO (20:54)
[2017-10-25 00:05] VITALS: O2SAT 93
[2017-10-25] MEDS: PIPERACILLIN-TAZO 2.25 GM/50 ML FROZ.PIGGY IV ×2 (02:08→10:54)
[2017-10-25] MEDS: SODIUM CHLORIDE 0.9% FLUSH 10 ML IV ×3 (02:09→11:00)
[2017-10-25 04:01] VITALS: BP 102/59; PULSE 90; RESP 16; TEMP 36.7; O2SAT 93
[2017-10-25 05:18] VITALS: BP 143/63; PULSE 62; RESP 15; TEMP 36.8; O2SAT 95
[2017-10-25] MEDS: PANTOPRAZOLE 40 MG TABLET PO (06:15)
[2017-10-25] MEDS: LEVOTHYROXINE 100 MCG TABLET 200 MCG PO (06:15)
[2017-10-25 07:00] VITALS: O2SAT 95
--- NOTE | 2017-10-25 07:16 | PM.DS.1 ---
History of Present Illness Chief complaint: Shortness of Breath / Syncopal Discharge Providers Date of admission: 10/21/17 20:15 Primary care physician: Mayito Boss MD Consults: 10/21/17 15:48 Consult to Respiratory Therapy Evaluate & Treat Comment: Physician Instructions: Evaluate and treat 10/21/17 21:12 Consult to Dietitian, Adult Routine Comment: Reason For Exam: assessed at high risk, wound healing, DM 10/22/17 12:00 Consult to Physical Therapy Evaluate & Treat Comment: weakness, s/p bilateral LE amputations Physician Instructions: Evaluate and Treat Discharge provider: Jaya Moore MD Summary Discharge Diagnosis: One. Acute pulmonary edema secondary to diastolic dysfunction 2. Chronic kidney disease stage 4 3. Diabetes type 2 4. Hypothyroid 5. Hypertension 6. Chronic metabolic acidosis secondary to kidney failure Seven. Left hand cellulitis and abscess 8. Depression Nine. Chronic anemia Hospital Course: Patient was admitted with increasing respiratory distress and dyspnea found to have acute pulmonary edema thought secondary to his chronic kidney disease and worsening diastolic dysfunction. He was placed on IV Lasix and had good diuresis over. Of 3-4 days. Now breathing back to normal not requiring oxygen feeling much better in general. Echo showed good LV function. He was on oral Lasix before coming to the hospital between 40 and 60 mg and he will be discharged home back to [facility] on 80 mg a day a repeat chemistry profile should be done in a few days to check for creatinine electrolytes and dose could be titrated that time if they need to he does have chronic kidney disease with chronic anemia these remained stable while here in the hospital. He has been getting intravenous Zosyn for a cellulitis and infection in the left hand that will continue he is to see infectious disease early this week and they can decide if he needs to continue with that. He is on renal dose of the Zosyn. Status at Discharge Functional status at discharge: wheelchair bound Overall status at discharge: patient is back to baseline Time Spent with Patient Greater than 30 minutes Exam Vital Signs (past 8 hours): Vital Signs - 8 hr 10/24/17 23:55 10/25/17 00:05 10/25/17 04:01 Temperature 97.9 F 98.0 F Pulse Rate 67 90 Respiratory Rate 15 16 Blood Pressure 146/57 H 102/59 L Pulse Oximetry 93 93 93 10/25/17 05:18 Temperature 98.2 F Pulse Rate 62 Respiratory Rate 15 Blood Pressure 143/63 H Pulse Oximetry 95 Pulse Oximetry 95 Oxygen Delivery Method Room Air Oxygen Flow Rate 0 Objective Labs Result Diagrams: 10/24/17 04:52 10/24/17 04:52 Discharge Plan Discharge Plan Transfer to: [facility] Under care of provider: greyson Transportation: Facility vehicle Labs: CMP on October 28 Consult as needed: Dental, Hearing, Mental health, Podiatry and Vision I certify the postop hospital group home care is medically necessary on a continuing basis for any conditions for which he/ she received care during this hospitalization.: Yes The receiving facility has agreed to accept transfer and provide medical treatment.: Yes Discharge Med Rec/Prescriptions Discharge Orders: Discharge (Order); Ordered 10/25/17 Ordered By: Jaya Moore Discharge Health Status Multidrug resistant organism: No MDRO MDRO Verified by culture: Yes Date verified: 10/23/17 Precautions: [place] Provider Discharge Instructions Diet: Diet as Tolerated Liquid consistency: Normal/Thin Food texture: Regular Wound Care Dressing: routine dressing changes Special Rehabilitation Services Rehab type: Physical therapy and Occupational therapy Restrictions to mobility: bilateral AKA Discharge Data Primary Care Provider: Mayito Boss Attending Provider: Jacy Albarran Admit Date/Time: 10/21/17 20:15 Quality VTE Deep Vein Thrombosis/Pulmonary Embolism Present on Admission: Yes
--- NOTE | 2017-10-25 07:20 | P.DS_ITS ---
History of Present Illness Chief complaint: Shortness of Breath / Syncopal Discharge Providers Date of admission: 10/21/17 20:15 Primary care physician: Mayito Boss MD Consults: 10/21/17 15:48 Consult to Respiratory Therapy Evaluate & Treat Comment: Physician Instructions: Evaluate and treat 10/21/17 21:12 Consult to Dietitian, Adult Routine Comment: Reason For Exam: assessed at high risk, wound healing, DM 10/22/17 12:00 Consult to Physical Therapy Evaluate & Treat Comment: weakness, s/p bilateral LE amputations Physician Instructions: Evaluate and Treat Discharge provider: Jaya Moore MD Summary Discharge Diagnosis: One. Acute pulmonary edema secondary to diastolic dysfunction 2. Chronic kidney disease stage 4 3. Diabetes type 2 4. Hypothyroid 5. Hypertension 6. Chronic metabolic acidosis secondary to kidney failure Seven. Left hand cellulitis and abscess 8. Depression Nine. Chronic anemia Hospital Course: Patient was admitted with increasing respiratory distress and dyspnea found to have acute pulmonary edema thought secondary to his chronic kidney disease and worsening diastolic dysfunction. He was placed on IV Lasix and had good diuresis over. Of 3-4 days. Now breathing back to normal not requiring oxygen feeling much better in general. Echo showed good LV function. He was on oral Lasix before coming to the hospital between 40 and 60 mg and he will be discharged home back to [facility] on 80 mg a day a repeat chemistry profile should be done in a few days to check for creatinine electrolytes and dose could be titrated that time if they need to he does have chronic kidney disease with chronic anemia these remained stable while here in the hospital. He has been getting intravenous Zosyn for a cellulitis and infection in the left hand that will continue he is to see infectious disease early this week and they can decide if he needs to continue with that. He is on renal dose of the Zosyn. Status at Discharge Functional status at discharge: wheelchair bound Overall status at discharge: patient is back to baseline Time Spent with Patient Greater than 30 minutes Exam Vital Signs (past 8 hours): Vital Signs - 8 hr 3 10/24/17 23:55 10/25/17 00:05 10/25/17 04:01 Temperature 97.9 F 98.0 F Pulse Rate 67 90 Respiratory Rate 15 16 Blood Pressure 146/57 H 102/59 L Pulse Oximetry 93 93 93 3 10/25/17 05:18 Temperature 98.2 F Pulse Rate 62 Respiratory Rate 15 Blood Pressure 143/63 H Pulse Oximetry 95 Pulse Oximetry 95 Oxygen Delivery Method Room Air Oxygen Flow Rate 0 Objective Labs Result Diagrams: 10/24/17 04:52 10/24/17 04:52 Discharge Plan Discharge Plan Transfer to: [facility] Under care of provider: greyson Transportation: Facility vehicle Labs: CMP on October 28 Consult as needed: Dental, Hearing, Mental health, Podiatry and Vision I certify the postop hospital nursing home care is medically necessary on a continuing basis for any conditions for which he/ she received care during this hospitalization.: Yes The receiving facility has agreed to accept transfer and provide medical treatment.: Yes Discharge Med Rec/Prescriptions Discharge Orders: Discharge (Order); Ordered 10/25/17 Ordered By: Jaya Moore Discharge Health Status Multidrug resistant organism: No MDRO MDRO Verified by culture: Yes Date verified: 10/23/17 Precautions: [place] Provider Discharge Instructions Diet: Diet as Tolerated Liquid consistency: Normal/Thin Food texture: Regular Wound Care Dressing: routine dressing changes Special Rehabilitation Services Rehab type: Physical therapy and Occupational therapy Restrictions to mobility: bilateral AKA Discharge Data Primary Care Provider: Mayito Boss Attending Provider: Jacy Albarran Admit Date/Time: 10/21/17 20:15 Quality VTE Deep Vein Thrombosis/Pulmonary Embolism Present on Admission: Yes
[2017-10-25 08:00] VITALS: BP 151/65; PULSE 64; RESP 16; TEMP 36.4; O2SAT 95
--- NOTE | 2017-10-25 08:30 | PC.NURSE ---
late entry for 10/24/17 1400: pt sitting in chair. MACHO villanuevag changed- healing incision with pink wound bed. drsg removed from left hand. small scab on back of hand intact and slight hand swelling, rednes. PICC line drsg changed also.
[2017-10-25] MEDS: ASCORBIC ACID 500 MG TABLET 250 MG PO (08:38)
[2017-10-25] MEDS: FUROSEMIDE 40 MG TABLET 80 MG PO (09:00)
[2017-10-25] MEDS: CLOPIDOGREL 75 MG TABLET PO (09:00)
[2017-10-25] MEDS: FERROUS SULFATE 325 MG TABLET PO (09:00)
[2017-10-25] MEDS: CHOLECALCIFEROL (VITAMIN D3) 1,000 UNIT TABLET 2000 UNIT PO (09:00)
[2017-10-25] MEDS: MULTIVITAMIN 1 TABLET 1 TAB PO (09:00)
[2017-10-25] MEDS: INSULIN ASPART 100 UNIT/ML INSULN PEN SUBCUT ×2 (09:09→12:28)
[2017-10-25] MEDS: INSULIN GLARGINE 100 UNIT/ML 3ML PEN 45 UNIT SUBCUT (09:10)
[2017-10-25] MEDS: HEPARIN 5,000 UNIT/ML VIAL 5000 UNIT SUBCUT (10:58)
[2017-10-25] MEDS: HYDRALAZINE 25 MG TABLET PO (10:59)
[2017-10-25] MEDS: METOPROLOL 25 MG TABLET PO (10:59)
--- NOTE | 2017-10-25 11:53 | CM.DPNOTE ---
Medicare Message SW provided pt's Medicare Rights via phone to pt's due to pt confusion at times and she acknowledged understanding and agreeable to pt discharge today and gave verbal signature on the Medicare Message. ANH Woodward
--- NOTE | 2017-10-25 12:01 | CM.DPC ---
Addendum entered by ANH Woodward 10/25/17 12:50: ADD: Call from Nandini at [facility] inquiring if we have [facility] auth for pt to return to their facility. DEN faxed d/c summ and clinicals to [facility] w/e number and called Susanna at [facility] and updated on auth need and d/c today around 1445 and she stated she would watch closely for it towards getting auth. ANH Woodward Original Note: DCP Discharge back [facility] Per MD, pt is medically stable to d/c back to [facility] rehab today on 7 days IV-Abx. Per RN, pt just recently finished his 1000 dosing and not due for next dose until this evening. DEN called [facility] admissions and confirmed that they can accept the pt back today and transport at 1445. DEN updated RN on d/c time. DEN called pt's spouse Analisa and provided d/c plan of [facility] at 1445 and spouse still agreeable and states that her adult son plans to meet the pt at [facility] with clothing and personal items. Plan: DEN to follow for faxing pt med rec and scripts to [facility] for review for 1445 discharge. ANH Woodward
[2017-10-25 13:00] VITALS: BP 148/51; PULSE 60; RESP 18; TEMP 36.6; O2SAT 96
[2017-10-25] MEDS: ACETAMINOPHEN 325 MG TABLET 650 MG PO (15:10)
--- NOTE | 2017-10-25 15:39 | PC.NURSE ---
DC note: Aide from [facility] came to fruit picker patient. Mariah DEVRIES called report to Nandini at [facility]. Pt transfered to wheelchair via luís lift, aide took to [facility]. All belongings and DC packet sent with Aide.
== END 2017-10-25 15:30 | DRG 291 ==
LOC: ED 19:51 → AC 20:16
PROVIDERS: Internal Medicine; Admitting Provider Internal Medicine; Emergency Provider Emergency Medicine; Family Provider Internal Medicine; PCP Internal Medicine; Visit Provider Internal Medicine
DX: I13.0 Hypertensive heart and chronic kidney disease with heart failure and stage 1 through stage 4 chronic kidney disease, or unspecified chronic kidney disease (principal); I50.31 Acute diastolic (congestive) heart failure; J81.0 Acute pulmonary edema; N17.9 Acute kidney failure, unspecified; N18.4 Chronic kidney disease, stage 4 (severe); E87.2 Acidosis; L03.114 Cellulitis of left upper limb; D62 Acute posthemorrhagic anemia; L02.512 Cutaneous abscess of left hand; E11.22 Type 2 diabetes mellitus with diabetic chronic kidney disease; Z79.4 Long term (current) use of insulin; E11.51 Type 2 diabetes mellitus with diabetic peripheral angiopathy without gangrene; E87.5 Hyperkalemia; K21.9 Gastro-esophageal reflux disease without esophagitis; F32.9 Major depressive disorder, single episode, unspecified; E03.9 Hypothyroidism, unspecified; I73.9 Peripheral vascular disease, unspecified; Z89.612 Acquired absence of left leg above knee; Z89.611 Acquired absence of right leg above knee; D63.1 Anemia in chronic kidney disease; Z66 Do not resuscitate; E11.649 Type 2 diabetes mellitus with hypoglycemia without coma
CPT/HCPCS: 36415; 71045; 80048; 80053; 81003; 82550; 82553; 83605; 83735; 83880; 84484; 85025; 85610; 85730; 93005; 93306; 93970; 94640; 94760; 94762; 96365; 96366; 96375; 97161; 99283; 99285; J1642; J1644; J1940; J2543

== ENCOUNTER → 2017-10-26 08:42 | Outpatient (REF) | payer SELFPAY ==
[2017-10-26 09:24] LABS: BUN Creatinine Ratio 20.5 (6-22); Blood Urea Nitrogen 84 mg/dL (9-20); C-Reactive Protein Quant 3.3 mg/dL (<1.0); Calcium 8.8 mg/dL (8.4-10.2); Carbon Dioxide 19 mmol/L (22-32); Chloride 110 mmol/L (98-107); Estimated Glomerular Filt Rate 14.6 mL/min (>60); Glucose 91 mg/dL (80-110); HEMOLYSIS < 15 (0-50); Potassium 4.6 mmol/L (3.4-5.1); Sodium 142 mmol/L (137-145)
[2017-10-26 09:41] LABS: Add Manual Diff / Slide Review NO; Eosinophils Percent Auto 6.2 % (2-4); Hemoglobin 7.8 g/dL (13.5-17.5); Mean Corpuscular HGB Conc 32.6 % (30-36); Mean Corpuscular Hemoglobin 28.8 PG (26-34); Mean Corpuscular Volume 88.4 fL (80-100); Monocytes Percent Auto 7.1 % (3-14); Neutrophils Absolute Auto 4100 /uL (3000-5900); Neutrophils Percent Auto 68.7 % (50-75); Platelet Count 383 X10^3/uL (150-400); Red Cell Distribution Width 15.8 % (11.6-14.8)
[2017-10-26 09:48] LABS: Hematocrit 23.8 % (41-53)
[2017-10-26 11:22] LABS: Erythrocyte Sedimentation Rate > 140 MM/HR (0-15)
== END ==
LOC: LAB 08:42
DX: I10 Essential (primary) hypertension (principal); L03.90 Cellulitis, unspecified
CPT/HCPCS: 36415; 80048; 85025; 85651; 86140

== ENCOUNTER → 2017-10-28 08:35 | Outpatient (REF) | payer SELFPAY ==
[2017-10-28 09:15] LABS: Alanine Aminotransferase 35 IU/L (21-72); Albumin Globulin Ratio 0.8 (1.0-2.8); Alkaline Phosphatase 98 U/L (38-126); Aspartate Aminotransferase 23 IU/L (17-59); BUN Creatinine Ratio 17.7 (6-22); Bilirubin Total 0.2 mg/dL (0.2-1.3); Blood Urea Nitrogen 76 mg/dL (9-20); Calcium 8.5 mg/dL (8.4-10.2); Carbon Dioxide 19 mmol/L (22-32); Chloride 111 mmol/L (98-107); Estimated Glomerular Filt Rate 13.8 mL/min (>60); Globulin 3.6 g/dL (1.7-4.1); Glucose 147 mg/dL (80-110); HEMOLYSIS < 15 (0-50); Potassium 4.9 mmol/L (3.4-5.1); Sodium 142 mmol/L (137-145); Total Protein 6.6 g/dL (6.3-8.2)
== END ==
LOC: LAB 08:35
PROVIDERS: Visit Provider Internal Medicine
DX: N28.0 Ischemia and infarction of kidney (principal); E87.2 Acidosis
CPT/HCPCS: 36415; 80053

== ENCOUNTER 2020-03-18 15:43 | Emergency (ER) | payer MEDICARE, OTHER, SELFPAY ==
[2020-03-18] VITALS (23 sets, daily range): BP systolic 119–174; BP diastolic 62–86; PULSE 40–63; RESP 16–30; TEMP 36.9; O2SAT 91–98
--- NOTE | 2020-03-18 15:58 | ED.GENADULT ---
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 Also has a history of hypertension here for evaluation of 3-4 days of progressively worsening shortness of breath and weakness to the point today where he could not sit up in bed. He states that he has been taking his medicines as directed. He also notices that he has been having decreased eyesight and decreased hearing but this is been longstanding a worsening over the past several months. He called EMS secondary to the way that he was feeling this morning. He denies any fevers. Other than cardiac monitoring received no intervention by EMS prior to arrival. Related Data Home Medications Medication Instructions Recorded Confirmed Flush 1 dose DAILY 10/21/17 10/21/17 Humalog U-100 Insulin 1 dose SUB-Q DIRECTED 10/21/17 10/21/17 acetaminophen 650 mg PO Q4H PRN MDD 3000 mg 10/21/17 10/21/17 albuterol sulfate 1 vial INHALATION Q4H PRN 10/21/17 10/21/17 amlodipine 10 mg PO QPM 10/21/17 10/21/17 ascorbic acid (vitamin C) 250 mg PO DAILY 10/21/17 10/21/17 bisacodyl 5 - 10 mg PO PRN PRN 10/21/17 10/21/17 bisacodyl 10 mg WV DAILY PRN 10/21/17 10/21/17 bupropion HCl 200 mg PO QPM 10/21/17 10/21/17 cholecalciferol (vitamin D3) 2,000 unit PO DAILY 10/21/17 10/21/17 clonazepam 0.5 mg PO TID PRN MDD 3 10/21/17 10/21/17 clopidogrel 75 mg PO DAILY 10/21/17 10/21/17 esomeprazole magnesium [Nexium] 40 mg PO DAILY 10/21/17 10/21/17 ferrous sulfate 325 mg PO BID 10/21/17 10/21/17 fluticasone propionate 1 spray INTRANASAL BID 10/21/17 10/21/17 hydralazine 25 mg PO TID 10/21/17 10/21/17 insulin glargine 55 units SUB-Q DAILY 10/21/17 10/21/17 levothyroxine 200 mcg PO DAILY 10/21/17 10/21/17 loperamide 2 mg PO Q4H PRN 10/21/17 10/21/17 magnesium hydroxide [Milk of 30 ml PO PRN PRN 10/21/17 10/21/17 Magnesia] melatonin 5 mg PO BEDTIME 10/21/17 10/21/17 metoprolol tartrate 25 mg PO BID 10/21/17 10/21/17 mirtazapine 15 mg PO BEDTIME 10/21/17 10/21/17 multivitamin with minerals 1 tab PO DAILY 10/21/17 10/21/17 oxycodone 5 mg PO Q4H PRN 10/21/17 10/21/17 oxycodone 10 mg PO Q4H PRN 10/21/17 10/21/17 simvastatin 40 mg PO QPM 10/21/17 10/21/17 sodium phosphates [Fleet Enema] 1 dose WV PRN PRN 10/21/17 10/21/17 tamsulosin 0.4 mg PO QPM 10/21/17 10/21/17 Previous Rx's Medication Instructions Recorded piperacillin-tazobactam [Zosyn] 2.25 gram IV Q8H #0 each 10/25/17 Allergies Allergy/AdvReac Type Severity Reaction Status Date / Time No Known Allergies Allergy Verified 03/18/20 16:32 Review of Systems <Milton Marcelino, - Last Filed: 03/19/20 07:18> Constitutional Constitutional: Denies chills, Reports fatigue, Denies fever(s), Denies headache(s) and Reports malaise Eyes Eyes: Reports change in vision ENT Ears, Nose, Mouth, and Throat: Denies headache(s) and Denies sore throat Comments: Decreased. Cardiovascular Cardiovascular: Denies chest pain, Reports dyspnea and Reports dyspnea on exertion Respiratory Respiratory: Denies cough, Reports dyspnea and Reports dyspnea on exertion Gastrointestinal Gastrointestinal: Denies abdominal pain, Denies nausea and Denies vomiting Genitourinary Genitourinary: Denies dysuria Genitourinary: Denies dysuria Musculoskeletal Musculoskeletal: Denies arthralgias, Reports myalgias, Reports muscle weakness and Denies myalgias Integumentary/Breasts Skin/Breast: Denies lesions and Denies rash Neurologic Neurologic: Denies behavioral changes and Denies headache(s) Psychiatric Psychiatric: Denies behavioral changes and Denies depression Endocrine Endocrine: Reports fatigue Hematologic/Lymphatic Hematologic/Lymphatic: Denies easy bleeding and Denies easy bruising Allergic/Immunologic Allergic/Immunologic: Denies urticaria Patient History <Milton Marcelino DO - Last Filed: 03/19/20 07:18> Medical History Above knee amputation of left lower extremity (Acute) Above knee amputation of right lower extremity (Acute) Chronic kidney disease (CKD) stage G4/A1, severely decreased glomerular filtration rate (GFR) between 15-29 mL/min/1.73 square meter and albuminuria creatinine ratio less than 30 mg/g (Acute) Diabetes (Acute) GERD (gastroesophageal reflux disease) (Acute) Hypertension (Acute) Hypothyroidism (Acute) Peripheral vascular disease (Acute) Surgical History (System 10/30/17 @ 14:49 by Radha Junior) Hx of cholecystectomy (Acute) Social History household members: spouse and children Smoking Status: Former smoker alcohol intake: never Smoking Status: Former smoker Substance Use Type: does not use Exam <Milton Marcelino DO - Last Filed: 03/19/20 07:18> Initial Vital Signs Initial Vital Signs: Vital Signs Temperature 98.4 F 03/18/20 16:25 Pulse Rate 40 L 03/18/20 16:25 Respiratory Rate 18 03/18/20 16:25 Blood Pressure 157/70 H 03/18/20 16:25 Pulse Oximetry 97 03/18/20 16:25 Const General: ill appearing Limitations: mental status not altered HENMT Head: normal to inspection and normocephalic Nose: external nose normal Face and sinus: normal facial exam Chest Chest: No crepitus and No tenderness Resp Effort & Inspection: no cough, not labored and tachypneic Auscultation: clear to auscultation bilaterally Cardio Rate: bradycardic Rhythm: abnormal rhythm Pulses: radial pulses present GI Inspection: non-distended Palpation: soft Skin Lesions: no lesions Rashes: no rashes Neuro General: patient alert, patient awake and patient oriented x3 Cognition: normal cognition Speech: speech normal Extrem Other: Patient has chronic deformity to the left hand secondary to an infection. Has a left txtgn-syb-efgw amputation and right kgnam-wqv-gmbq amputation. Psych Appearance: grossly normal and well kempt <Ren Munguia MD - Last Filed: 03/19/20 01:03> Initial Vital Signs Initial Vital Signs: Vital Signs Temperature 98.4 F 03/18/20 16:25 Pulse Rate 40 L 03/18/20 16:25 Respiratory Rate 18 03/18/20 16:25 Blood Pressure 157/70 H 03/18/20 16:25 Pulse Oximetry 97 03/18/20 16:25 Scores <Milton Marcelino DO - Last Filed: 03/19/20 07:18> GCS Kress coma scale eye opening: Spontaneous Kress coma scale verbal response: Orientated Kress coma scale motor response: Obey commands Kress coma scale total score: 15 Course <Milton Marcelino DO - Last Filed: 03/19/20 07:18> Orders Ordered: Discontinued Medications Albuterol (Ventolin) 5 mg INH NOW ONE Stop: 03/18/20 17:52 Last Admin: 03/18/20 18:26 Dose: 5 mg Documented by: ALINE Dextrose (D50w) 50 gm IV NOW ONE Stop: 03/18/20 17:40 Last Admin: 03/18/20 18:00 Dose: 50 gm Documented by: ALINE Furosemide (Lasix) 80 mg IV NOW ONE Stop: 03/18/20 17:40 Last Admin: 03/18/20 18:42 Dose: 80 mg Documented by: ALINE Sodium Chloride (Normal Saline 0.9%) 1,000 mls @ 500 mls/hr IV BOLUS ONE Stop: 03/18/20 18:04 Last Infusion: 03/18/20 19:48 Dose: 0 mls/hr Documented by: Admin: 03/18/20 17:25 Dose: 500 mls/hr Documented by: ALINE Dopamine HCl/Dextrose (Dopamine 400 Mg-D5w 250 Ml) 400 mg in 250 mls @ 9.1 mls/hr IV TITRATE ULICES; Protocol Last Admin: 03/18/20 17:25 Dose: 2.5 mcg/kg/min, 9.1 mls/hr Documented by: ALINE Calcium Gluconate 4.65 meq/ (Sodium Chloride) 60 mls @ 180 mls/hr IV NOW ONE Stop: 03/18/20 17:44 Last Infusion: 03/18/20 18:30 Dose: 0 mls/hr Documented by: Admin: 03/18/20 18:09 Dose: 180 mls/hr Documented by: LAINE Insulin Human Regular (Humulin R) 10 unit IV NOW ONE Stop: 03/18/20 17:40 Last Admin: 03/18/20 17:56 Dose: 10 unit Documented by: ALINE Cosigned by: ALLI Sodium Bicarbonate (Sodium Bicarbonate 8.4% Syringe) 50 meq IV NOW ONE Stop: 03/18/20 17:27 Last Admin: 03/18/20 17:43 Dose: 50 meq Documented by: ALINE Sodium Polystyrene Sulfonate (Kayexalate) 30 gm PO NOW ONE Stop: 03/18/20 17:40 Last Admin: 03/18/20 18:18 Dose: 30 gm Documented by: ALINE Vital Signs Vital signs: Vital Signs - 8 hr 03/18/20 17:21 03/18/20 17:30 03/18/20 17:45 Pulse Rate 55 L 59 L 63 Respiratory Rate 17 19 18 Blood Pressure 174/75 H Pulse Oximetry 97 97 97 03/18/20 17:46 03/18/20 18:00 03/18/20 18:15 Pulse Rate 62 46 L 45 L Respiratory Rate 20 27 H 24 Blood Pressure 142/63 H 119/69 132/62 Pulse Oximetry 98 95 96 03/18/20 18:30 03/18/20 18:31 03/18/20 18:37 Pulse Rate 51 L 51 L Respiratory Rate 16 17 22 Blood Pressure 151/66 H Pulse Oximetry 98 97 96 03/18/20 18:45 03/18/20 19:00 03/18/20 19:15 Pulse Rate 51 L 48 L 48 L Respiratory Rate 20 28 H 30 H Blood Pressure 143/64 H 141/63 H 142/65 H Pulse Oximetry 97 95 91 03/18/20 19:30 03/18/20 19:31 03/18/20 19:45 Pulse Rate 46 L 46 L 45 L Respiratory Rate 23 18 18 Blood Pressure 146/86 H 152/65 H Pulse Oximetry 95 95 94 03/18/20 20:00 03/18/20 20:15 03/18/20 20:30 Pulse Rate 48 L 48 L 48 L Respiratory Rate 23 21 22 Blood Pressure 158/66 H 145/66 H 153/67 H Pulse Oximetry 94 94 95 03/18/20 20:45 03/18/20 21:00 03/18/20 21:15 Pulse Rate 48 L 50 L 49 L Respiratory Rate 19 18 19 Blood Pressure 152/67 H 154/67 H 161/65 H Pulse Oximetry 93 95 91 03/18/20 21:30 Pulse Rate 50 L Respiratory Rate 22 Blood Pressure 154/65 H Pulse Oximetry 94 <Ren Munguia MD - Last Filed: 03/19/20 01:03> Course Course Narrative: Time 6:00 p.m.. A sign-out from Dr. Marcelino, patient to be transferred to [facility]. Awaiting call back Time 8:[address] Marcelino has spoken with tire room supervisor at [facility], Dr. Be, awaiting for transfer. BMP repeat is pending. Orders Ordered: Discontinued Medications Albuterol (Ventolin) 5 mg INH NOW ONE Stop: 03/18/20 17:52 Last Admin: 03/18/20 18:26 Dose: 5 mg Documented by: ALINE Dextrose (D50w) 50 gm IV NOW ONE Stop: 03/18/20 17:40 Last Admin: 03/18/20 18:00 Dose: 50 gm Documented by: ALINE Furosemide (Lasix) 80 mg IV NOW ONE Stop: 03/18/20 17:40 Last Admin: 03/18/20 18:42 Dose: 80 mg Documented by: ALINE Sodium Chloride (Normal Saline 0.9%) 1,000 mls @ 500 mls/hr IV BOLUS ONE Stop: 03/18/20 18:04 Last Infusion: 03/18/20 19:48 Dose: 0 mls/hr Documented by: Admin: 03/18/20 17:25 Dose: 500 mls/hr Documented by: ALINE Dopamine HCl/Dextrose (Dopamine 400 Mg-D5w 250 Ml) 400 mg in 250 mls @ 9.1 mls/hr IV TITRATE ULICES; Protocol Last Admin: 03/18/20 17:25 Dose: 2.5 mcg/kg/min, 9.1 mls/hr Documented by: ALNIE Calcium Gluconate 4.65 meq/ (Sodium Chloride) 60 mls @ 180 mls/hr IV NOW ONE Stop: 03/18/20 17:44 Last Infusion: 03/18/20 18:30 Dose: 0 mls/hr Documented by: Admin: 03/18/20 18:09 Dose: 180 mls/hr Documented by: ALINE Insulin Human Regular (Humulin R) 10 unit IV NOW ONE Stop: 03/18/20 17:40 Last Admin: 03/18/20 17:56 Dose: 10 unit Documented by: ALINE Cosigned by: ALLI Sodium Bicarbonate (Sodium Bicarbonate 8.4% Syringe) 50 meq IV NOW ONE Stop: 03/18/20 17:27 Last Admin: 03/18/20 17:43 Dose: 50 meq Documented by: ALINE Sodium Polystyrene Sulfonate (Kayexalate) 30 gm PO NOW ONE Stop: 03/18/20 17:40 Last Admin: 03/18/20 18:18 Dose: 30 gm Documented by: ALINE Vital Signs Vital signs: Vital Signs - 8 hr 03/18/20 17:21 03/18/20 17:30 03/18/20 17:45 Pulse Rate 55 L 59 L 63 Respiratory Rate 17 19 18 Blood Pressure 174/75 H Pulse Oximetry 97 97 97 03/18/20 17:46 03/18/20 18:00 03/18/20 18:15 Pulse Rate 62 46 L 45 L Respiratory Rate 20 27 H 24 Blood Pressure 142/63 H 119/69 132/62 Pulse Oximetry 98 95 96 03/18/20 18:30 03/18/20 18:31 03/18/20 18:37 Pulse Rate 51 L 51 L Respiratory Rate 16 17 22 Blood Pressure 151/66 H Pulse Oximetry 98 97 96 03/18/20 18:45 03/18/20 19:00 03/18/20 19:15 Pulse Rate 51 L 48 L 48 L Respiratory Rate 20 28 H 30 H Blood Pressure 143/64 H 141/63 H 142/65 H Pulse Oximetry 97 95 91 03/18/20 19:30 03/18/20 19:31 03/18/20 19:45 Pulse Rate 46 L 46 L 45 L Respiratory Rate 23 18 18 Blood Pressure 146/86 H 152/65 H Pulse Oximetry 95 95 94 03/18/20 20:00 03/18/20 20:15 03/18/20 20:30 Pulse Rate 48 L 48 L 48 L Respiratory Rate 23 21 22 Blood Pressure 158/66 H 145/66 H 153/67 H Pulse Oximetry 94 94 95 03/18/20 20:45 03/18/20 21:00 03/18/20 21:15 Pulse Rate 48 L 50 L 49 L Respiratory Rate 19 18 19 Blood Pressure 152/67 H 154/67 H 161/65 H Pulse Oximetry 93 95 91 03/18/20 21:30 Pulse Rate 50 L Respiratory Rate 22 Blood Pressure 154/65 H Pulse Oximetry 94 Medical Decision Making <Milton Marcelino, - Last Filed: 03/19/20 07:18> Lab Data Lab results reviewed: Yes I reviewed the patient's lab results. Result diagrams: 03/18/20 16:00 03/18/20 19:45 Labs: Lab Results 03/18/20 03/18/20 03/18/20 Range/Units 16:00 16:00 16:00 WBC 6.4 (4.5-11.0) X10^3/uL RBC 2.22 L (4.5-5.9) X10^6/uL Hgb 6.6 L* (13.5-17.5) g/dL Hct 21.2 L (41-53) % MCV 95.5 (80-100) fL MCH 29.9 (26-34) PG MCHC 31.3 (30-36) % RDW 17.4 H (11.6-14.8) % Plt Count 270 (150-400) X10^3/uL Neut % (Auto) 78.2 H (50-75) % Lymph % (Auto) 11.4 L (25-40) % Atkinson % (Auto) 6.6 (3-14) % Eos % (Auto) 2.7 (2-4) % Baso % (Auto) 1.1 (0-2) % Neut # (Auto) 5000 (4313-7570) /uL Lymph # (Auto) 700 L (4921-4170) /uL Atkinson # (Auto) 400 (0-900) /uL Eos # (Auto) 200 (0-450) /uL Baso # (Auto) 100 (0-100) /uL PT 12.7 (10.1-12.7) SECONDS INR 1.1 (0.9-1.3) APTT 32 (26.4-36.2) SECONDS VBG pH (7.33-7.43) VBG pCO2 (45-50) mmHg VBG pO2 (35-45) mmHg VBG HCO3 (23-28) mmol/L VBG Total CO2 (24-29) mmol/L VBG O2 Saturation (70-75) % VBG Base Excess (0-4) mmol/L Sodium 139 (137-145) mmol/L Potassium 8.1 H* (3.4-5.1) mmol/L Chloride 112 H (98-107) mmol/L Carbon Dioxide 15 L (22-32) mmol/L BUN 125 H* (9-20) mg/dL Creatinine 7.64 H* (0.66-1.25) mg/dL Estimated GFR 7.1 L (>60) mL/min BUN/Creatinine Ratio 16.4 (6-22) Glucose 71 L (80-110) mg/dL Calcium 9.1 (8.4-10.2) mg/dL Phosphorus (2.3-3.7) mg/dL Magnesium (1.6-2.3) mg/dL Total Bilirubin 0.7 (0.2-1.3) mg/dL AST 60 H (17-59) IU/L ALT 35 (<50) IU/L Alkaline Phosphatase 120 (38-126) U/L Total Creatine Kinase (55-170) U/L CK-MB (CK-2) (<2.37) ng/mL CK-MB (CK-2) Rel Index (1.5-5.0) % Troponin I (0.01-0.034) ng/mL NT-Pro-B Natriuret Pep (<125) pg/mL Total Protein 6.6 (6.3-8.2) g/dL Albumin 3.5 (3.5-5.0) g/dL Globulin 3.1 (1.7-4.1) g/dL Albumin/Globulin Ratio 1.1 (1.0-2.8) Lipase (23-300) U/L TSH (0.47-4.68) uIU/mL Ketones (<0.27) mmol/L COVID-19 PCR (Negative) Blood Type Antibody Screen Crossmatch 03/18/20 03/18/20 03/18/20 Range/Units 16:00 16:00 16:00 WBC (4.5-11.0) X10^3/uL RBC (4.5-5.9) X10^6/uL Hgb (13.5-17.5) g/dL Hct (41-53) % MCV (80-100) fL MCH (26-34) PG MCHC (30-36) % RDW (11.6-14.8) % Plt Count (150-400) X10^3/uL Neut % (Auto) (50-75) % Lymph % (Auto) (25-40) % Atkinson % (Auto) (3-14) % Eos % (Auto) (2-4) % Baso % (Auto) (0-2) % Neut # (Auto) (4201-8843) /uL Lymph # (Auto) (6909-6467) /uL Atkinson # (Auto) (0-900) /uL Eos # (Auto) (0-450) /uL Baso # (Auto) (0-100) /uL PT (10.1-12.7) SECONDS INR (0.9-1.3) APTT (26.4-36.2) SECONDS VBG pH (7.33-7.43) VBG pCO2 (45-50) mmHg VBG pO2 (35-45) mmHg VBG HCO3 (23-28) mmol/L VBG Total CO2 (24-29) mmol/L VBG O2 Saturation (70-75) % VBG Base Excess (0-4) mmol/L Sodium (137-145) mmol/L Potassium (3.4-5.1) mmol/L Chloride (98-107) mmol/L Carbon Dioxide (22-32) mmol/L BUN (9-20) mg/dL Creatinine (0.66-1.25) mg/dL Estimated GFR (>60) mL/min BUN/Creatinine Ratio (6-22) Glucose (80-110) mg/dL Calcium (8.4-10.2) mg/dL Phosphorus 7.0 H (2.3-3.7) mg/dL Magnesium 2.3 (1.6-2.3) mg/dL Total Bilirubin (0.2-1.3) mg/dL AST (17-59) IU/L ALT (<50) IU/L Alkaline Phosphatase (38-126) U/L Total Creatine Kinase 553 H (55-170) U/L CK-MB (CK-2) 6.92 H (<2.37) ng/mL CK-MB (CK-2) Rel Index 1.3 L (1.5-5.0) % Troponin I 0.044 H (0.01-0.034) ng/mL NT-Pro-B Natriuret Pep 28590 H (<125) pg/mL Total Protein (6.3-8.2) g/dL Albumin (3.5-5.0) g/dL Globulin (1.7-4.1) g/dL Albumin/Globulin Ratio (1.0-2.8) Lipase 103 (23-300) U/L TSH 0.049 L (0.47-4.68) uIU/mL Ketones 0.15 (<0.27) mmol/L COVID-19 PCR (Negative) Blood Type Antibody Screen Crossmatch 03/18/20 03/18/20 03/18/20 Range/Units 17:02 17:16 17:25 WBC (4.5-11.0) X10^3/uL RBC (4.5-5.9) X10^6/uL Hgb (13.5-17.5) g/dL Hct (41-53) % MCV (80-100) fL MCH (26-34) PG MCHC (30-36) % RDW (11.6-14.8) % Plt Count (150-400) X10^3/uL Neut % (Auto) (50-75) % Lymph % (Auto) (25-40) % Atkinson % (Auto) (3-14) % Eos % (Auto) (2-4) % Baso % (Auto) (0-2) % Neut # (Auto) (4967-0132) /uL Lymph # (Auto) (8325-6726) /uL Atkinson # (Auto) (0-900) /uL Eos # (Auto) (0-450) /uL Baso # (Auto) (0-100) /uL PT (10.1-12.7) SECONDS INR (0.9-1.3) APTT (26.4-36.2) SECONDS VBG pH 7.29 L (7.33-7.43) VBG pCO2 29.5 L (45-50) mmHg VBG pO2 48 H (35-45) mmHg VBG HCO3 14 L (23-28) mmol/L VBG Total CO2 15 L (24-29) mmol/L VBG O2 Saturation 79 H (70-75) % VBG Base Excess -12.0 L (0-4) mmol/L Sodium (137-145) mmol/L Potassium (3.4-5.1) mmol/L Chloride (98-107) mmol/L Carbon Dioxide (22-32) mmol/L BUN (9-20) mg/dL Creatinine (0.66-1.25) mg/dL Estimated GFR (>60) mL/min BUN/Creatinine Ratio (6-22) Glucose (80-110) mg/dL Calcium (8.4-10.2) mg/dL Phosphorus (2.3-3.7) mg/dL Magnesium (1.6-2.3) mg/dL Total Bilirubin (0.2-1.3) mg/dL AST (17-59) IU/L ALT (<50) IU/L Alkaline Phosphatase (38-126) U/L Total Creatine Kinase (55-170) U/L CK-MB (CK-2) (<2.37) ng/mL CK-MB (CK-2) Rel Index (1.5-5.0) % Troponin I (0.01-0.034) ng/mL NT-Pro-B Natriuret Pep (<125) pg/mL Total Protein (6.3-8.2) g/dL Albumin (3.5-5.0) g/dL Globulin (1.7-4.1) g/dL Albumin/Globulin Ratio (1.0-2.8) Lipase (23-300) U/L TSH (0.47-4.68) uIU/mL Ketones (<0.27) mmol/L COVID-19 PCR Negative (Negative) Blood Type AB Negative Antibody Screen Negative Crossmatch See Detail 03/18/20 Range/Units 19:45 WBC (4.5-11.0) X10^3/uL RBC (4.5-5.9) X10^6/uL Hgb (13.5-17.5) g/dL Hct (41-53) % MCV (80-100) fL MCH (26-34) PG MCHC (30-36) % RDW (11.6-14.8) % Plt Count (150-400) X10^3/uL Neut % (Auto) (50-75) % Lymph % (Auto) (25-40) % Atkinson % (Auto) (3-14) % Eos % (Auto) (2-4) % Baso % (Auto) (0-2) % Neut # (Auto) (9153-3679) /uL Lymph # (Auto) (7183-4229) /uL Atkinson # (Auto) (0-900) /uL Eos # (Auto) (0-450) /uL Baso # (Auto) (0-100) /uL PT (10.1-12.7) SECONDS INR (0.9-1.3) APTT (26.4-36.2) SECONDS VBG pH (7.33-7.43) VBG pCO2 (45-50) mmHg VBG pO2 (35-45) mmHg VBG HCO3 (23-28) mmol/L VBG Total CO2 (24-29) mmol/L VBG O2 Saturation (70-75) % VBG Base Excess (0-4) mmol/L Sodium 140 (137-145) mmol/L Potassium 7.1 H* (3.4-5.1) mmol/L Chloride 114 H (98-107) mmol/L Carbon Dioxide 16 L (22-32) mmol/L BUN 119 H* (9-20) mg/dL Creatinine 7.39 H (0.66-1.25) mg/dL Estimated GFR 7.3 L (>60) mL/min BUN/Creatinine Ratio 16.1 (6-22) Glucose 56 L (80-110) mg/dL Calcium 9.1 (8.4-10.2) mg/dL Phosphorus (2.3-3.7) mg/dL Magnesium (1.6-2.3) mg/dL Total Bilirubin (0.2-1.3) mg/dL AST (17-59) IU/L ALT (<50) IU/L Alkaline Phosphatase (38-126) U/L Total Creatine Kinase (55-170) U/L CK-MB (CK-2) (<2.37) ng/mL CK-MB (CK-2) Rel Index (1.5-5.0) % Troponin I (0.01-0.034) ng/mL NT-Pro-B Natriuret Pep (<125) pg/mL Total Protein (6.3-8.2) g/dL Albumin (3.5-5.0) g/dL Globulin (1.7-4.1) g/dL Albumin/Globulin Ratio (1.0-2.8) Lipase (23-300) U/L TSH (0.47-4.68) uIU/mL Ketones (<0.27) mmol/L COVID-19 PCR (Negative) Blood Type Antibody Screen Crossmatch Point of Care Testing Glucose POC 67 Point of care testing: Point of Care Testing Glucose POC 67 Imaging Data Chest x-ray: Radiologist's Impression: [address] [address] XRay Report Signed Patient: Jame Crouch LMR#: [id number] : 1950Acct:[id number] Age/Sex: 69 / MDate of Service: 03/18/20 Loc: ED Accession Number: [id number] Procedure: XR chest 1V Ordering Provider: Milton Marcelino D.O. PROCEDURE: XR CHEST 1V INDICATIONS: Bradycardia and weakness TECHNIQUE: One view of the chest was acquired. COMPARISON: [facility], RAQUEL, XR CHEST 1V, 10/21/2017, 15:54. FINDINGS: Surgical changes and devices: None. Lungs and pleura: No pneumothorax. Diffuse interstitial prominence with vascular congestion. Bilateral pleural effusions larger on the left. Streaky bibasilar opacities. Mediastinum: Mediastinal contours appear stable. Heart size is enlarged. Bones and chest wall: No suspicious bony lesions. Overlying soft tissues appear unremarkable. IMPRESSION: Findings consistent with pulmonary edema/CHF. Concurrent infectious/inflammatory process not excluded if clinically appropriate. Dictated by: Chang Sanchez M.D. on 03/18/2020 at 15:59 Approved by: Chang Sanchez M.D. on 03/18/2020 at 16:01 ECG Data Attestation: I personally reviewed and interpreted this ECG as follows: Prior ECG tracings: not available for review Interpretation: EKG upon arrival Wide complex QRS rhythm Ventricular rate 80 to QRS 190 milliseconds Left bundle-branch block pattern Repeat EKG after hyperkalemia treatment Sinus rhythm Ventricular rate of 60 QRS duration 154 milliseconds MDM Narrative Medical decision making narrative: Patient not in any respiratory distress. Is alert oriented x3. Is not hypotensive. Initially upon arrival on the monitor it appeared that the patient was in a third-degree heart block. I did discuss the case with Dr. Rehman with Cardiology at [facility] who evaluated the EKG in her opinion was that he was in atrial fibrillation with a slow ventricular response. She recommended starting the patient on dopamine at 2.5 micrograms/kilogram per minute. This was done. His heart rate was then consistently in the 50s. Upon return of the labs shows the patient is anemic. He does have a chronic anemia however today's blood counts is lower than his baseline. He also has hyperkalemia and acute renal failure. Patient was also acidotic with a pH on his VBG of 7.2 and a CO2 on his chemistry of 15. He was not in DKA. He actually had a glucose of 71 on his chemistry and a negative ketones. Secondary to his hyperkalemia and his complex rhythm on the EKG he was given 1 g of calcium gluconate, 50 mEq of sodium bicarb, 10 units of regular insulin, 50 g of dextrose, 30 g p.o. of Kayexalate, 80 mg of Lasix IV and a 5 mg albuterol nebulizer. Repeat EKG 1 hour after the completion of all his medications does show a narrowing of his QRS complex. I discussed the case with the hospitalist and the lay out machine operator at [facility]. The stated that the patient most likely would need emergent dialysis and they did not have the ability to place a dialysis catheter after hours. We do not have the ability to place dialysis catheter here at this facility. I then discussed the case with Dr. Be at [facility] in [place] in the ICU who accepts the patient for transport. Care this patient was turned over to Dr. Munguia to follow-up on the pending BMP and monitoring until transfer. <Ren Munguia MD - Last Filed: 03/19/20 01:03> Lab Data Labs: Lab Results 03/18/20 03/18/20 03/18/20 Range/Units 16:00 16:00 16:00 WBC 6.4 (4.5-11.0) X10^3/uL RBC 2.22 L (4.5-5.9) X10^6/uL Hgb 6.6 L* (13.5-17.5) g/dL Hct 21.2 L (41-53) % MCV 95.5 (80-100) fL MCH 29.9 (26-34) PG MCHC 31.3 (30-36) % RDW 17.4 H (11.6-14.8) % Plt Count 270 (150-400) X10^3/uL Neut % (Auto) 78.2 H (50-75) % Lymph % (Auto) 11.4 L (25-40) % Atkinson % (Auto) 6.6 (3-14) % Eos % (Auto) 2.7 (2-4) % Baso % (Auto) 1.1 (0-2) % Neut # (Auto) 5000 (5686-9533) /uL Lymph # (Auto) 700 L (8940-5095) /uL Atkinson # (Auto) 400 (0-900) /uL Eos # (Auto) 200 (0-450) /uL Baso # (Auto) 100 (0-100) /uL PT 12.7 (10.1-12.7) SECONDS INR 1.1 (0.9-1.3) APTT 32 (26.4-36.2) SECONDS VBG pH (7.33-7.43) VBG pCO2 (45-50) mmHg VBG pO2 (35-45) mmHg VBG HCO3 (23-28) mmol/L VBG Total CO2 (24-29) mmol/L VBG O2 Saturation (70-75) % VBG Base Excess (0-4) mmol/L Sodium 139 (137-145) mmol/L Potassium 8.1 H* (3.4-5.1) mmol/L Chloride 112 H (98-107) mmol/L Carbon Dioxide 15 L (22-32) mmol/L BUN 125 H* (9-20) mg/dL Creatinine 7.64 H* (0.66-1.25) mg/dL Estimated GFR 7.1 L (>60) mL/min BUN/Creatinine Ratio 16.4 (6-22) Glucose 71 L (80-110) mg/dL Calcium 9.1 (8.4-10.2) mg/dL Phosphorus (2.3-3.7) mg/dL Magnesium (1.6-2.3) mg/dL Total Bilirubin 0.7 (0.2-1.3) mg/dL AST 60 H (17-59) IU/L ALT 35 (<50) IU/L Alkaline Phosphatase 120 (38-126) U/L Total Creatine Kinase (55-170) U/L CK-MB (CK-2) (<2.37) ng/mL CK-MB (CK-2) Rel Index (1.5-5.0) % Troponin I (0.01-0.034) ng/mL NT-Pro-B Natriuret Pep (<125) pg/mL Total Protein 6.6 (6.3-8.2) g/dL Albumin 3.5 (3.5-5.0) g/dL Globulin 3.1 (1.7-4.1) g/dL Albumin/Globulin Ratio 1.1 (1.0-2.8) Lipase (23-300) U/L TSH (0.47-4.68) uIU/mL Ketones (<0.27) mmol/L COVID-19 PCR (Negative) Blood Type Antibody Screen Crossmatch 03/18/20 03/18/20 03/18/20 Range/Units 16:00 16:00 16:00 WBC (4.5-11.0) X10^3/uL RBC (4.5-5.9) X10^6/uL Hgb (13.5-17.5) g/dL Hct (41-53) % MCV (80-100) fL MCH (26-34) PG MCHC (30-36) % RDW (11.6-14.8) % Plt Count (150-400) X10^3/uL Neut % (Auto) (50-75) % Lymph % (Auto) (25-40) % Atkinson % (Auto) (3-14) % Eos % (Auto) (2-4) % Baso % (Auto) (0-2) % Neut # (Auto) (3460-0958) /uL Lymph # (Auto) (6355-9550) /uL Atkinson # (Auto) (0-900) /uL Eos # (Auto) (0-450) /uL Baso # (Auto) (0-100) /uL PT (10.1-12.7) SECONDS INR (0.9-1.3) APTT (26.4-36.2) SECONDS VBG pH (7.33-7.43) VBG pCO2 (45-50) mmHg VBG pO2 (35-45) mmHg VBG HCO3 (23-28) mmol/L VBG Total CO2 (24-29) mmol/L VBG O2 Saturation (70-75) % VBG Base Excess (0-4) mmol/L Sodium (137-145) mmol/L Potassium (3.4-5.1) mmol/L Chloride (98-107) mmol/L Carbon Dioxide (22-32) mmol/L BUN (9-20) mg/dL Creatinine (0.66-1.25) mg/dL Estimated GFR (>60) mL/min BUN/Creatinine Ratio (6-22) Glucose (80-110) mg/dL Calcium (8.4-10.2) mg/dL Phosphorus 7.0 H (2.3-3.7) mg/dL Magnesium 2.3 (1.6-2.3) mg/dL Total Bilirubin (0.2-1.3) mg/dL AST (17-59) IU/L ALT (<50) IU/L Alkaline Phosphatase (38-126) U/L Total Creatine Kinase 553 H (55-170) U/L CK-MB (CK-2) 6.92 H (<2.37) ng/mL CK-MB (CK-2) Rel Index 1.3 L (1.5-5.0) % Troponin I 0.044 H (0.01-0.034) ng/mL NT-Pro-B Natriuret Pep 32400 H (<125) pg/mL Total Protein (6.3-8.2) g/dL Albumin (3.5-5.0) g/dL Globulin (1.7-4.1) g/dL Albumin/Globulin Ratio (1.0-2.8) Lipase 103 (23-300) U/L TSH 0.049 L (0.47-4.68) uIU/mL Ketones 0.15 (<0.27) mmol/L COVID-19 PCR (Negative) Blood Type Antibody Screen Crossmatch 03/18/20 03/18/20 03/18/20 Range/Units 17:02 17:16 17:25 WBC (4.5-11.0) X10^3/uL RBC (4.5-5.9) X10^6/uL Hgb (13.5-17.5) g/dL Hct (41-53) % MCV (80-100) fL MCH (26-34) PG MCHC (30-36) % RDW (11.6-14.8) % Plt Count (150-400) X10^3/uL Neut % (Auto) (50-75) % Lymph % (Auto) (25-40) % Atkinson % (Auto) (3-14) % Eos % (Auto) (2-4) % Baso % (Auto) (0-2) % Neut # (Auto) (8612-0186) /uL Lymph # (Auto) (7591-1972) /uL Atkinson # (Auto) (0-900) /uL Eos # (Auto) (0-450) /uL Baso # (Auto) (0-100) /uL PT (10.1-12.7) SECONDS INR (0.9-1.3) APTT (26.4-36.2) SECONDS VBG pH 7.29 L (7.33-7.43) VBG pCO2 29.5 L (45-50) mmHg VBG pO2 48 H (35-45) mmHg VBG HCO3 14 L (23-28) mmol/L VBG Total CO2 15 L (24-29) mmol/L VBG O2 Saturation 79 H (70-75) % VBG Base Excess -12.0 L (0-4) mmol/L Sodium (137-145) mmol/L Potassium (3.4-5.1) mmol/L Chloride (98-107) mmol/L Carbon Dioxide (22-32) mmol/L BUN (9-20) mg/dL Creatinine (0.66-1.25) mg/dL Estimated GFR (>60) mL/min BUN/Creatinine Ratio (6-22) Glucose (80-110) mg/dL Calcium (8.4-10.2) mg/dL Phosphorus (2.3-3.7) mg/dL Magnesium (1.6-2.3) mg/dL Total Bilirubin (0.2-1.3) mg/dL AST (17-59) IU/L ALT (<50) IU/L Alkaline Phosphatase (38-126) U/L Total Creatine Kinase (55-170) U/L CK-MB (CK-2) (<2.37) ng/mL CK-MB (CK-2) Rel Index (1.5-5.0) % Troponin I (0.01-0.034) ng/mL NT-Pro-B Natriuret Pep (<125) pg/mL Total Protein (6.3-8.2) g/dL Albumin (3.5-5.0) g/dL Globulin (1.7-4.1) g/dL Albumin/Globulin Ratio (1.0-2.8) Lipase (23-300) U/L TSH (0.47-4.68) uIU/mL Ketones (<0.27) mmol/L COVID-19 PCR Negative (Negative) Blood Type AB Negative Antibody Screen Negative Crossmatch See Detail 03/18/20 Range/Units 19:45 WBC (4.5-11.0) X10^3/uL RBC (4.5-5.9) X10^6/uL Hgb (13.5-17.5) g/dL Hct (41-53) % MCV (80-100) fL MCH (26-34) PG MCHC (30-36) % RDW (11.6-14.8) % Plt Count (150-400) X10^3/uL Neut % (Auto) (50-75) % Lymph % (Auto) (25-40) % Atkinson % (Auto) (3-14) % Eos % (Auto) (2-4) % Baso % (Auto) (0-2) % Neut # (Auto) (3025-7636) /uL Lymph # (Auto) (7956-8686) /uL Atkinson # (Auto) (0-900) /uL Eos # (Auto) (0-450) /uL Baso # (Auto) (0-100) /uL PT (10.1-12.7) SECONDS INR (0.9-1.3) APTT (26.4-36.2) SECONDS VBG pH (7.33-7.43) VBG pCO2 (45-50) mmHg VBG pO2 (35-45) mmHg VBG HCO3 (23-28) mmol/L VBG Total CO2 (24-29) mmol/L VBG O2 Saturation (70-75) % VBG Base Excess (0-4) mmol/L Sodium 140 (137-145) mmol/L Potassium 7.1 H* (3.4-5.1) mmol/L Chloride 114 H (98-107) mmol/L Carbon Dioxide 16 L (22-32) mmol/L BUN 119 H* (9-20) mg/dL Creatinine 7.39 H (0.66-1.25) mg/dL Estimated GFR 7.3 L (>60) mL/min BUN/Creatinine Ratio 16.1 (6-22) Glucose 56 L (80-110) mg/dL Calcium 9.1 (8.4-10.2) mg/dL Phosphorus (2.3-3.7) mg/dL Magnesium (1.6-2.3) mg/dL Total Bilirubin (0.2-1.3) mg/dL AST (17-59) IU/L ALT (<50) IU/L Alkaline Phosphatase (38-126) U/L Total Creatine Kinase (55-170) U/L CK-MB (CK-2) (<2.37) ng/mL CK-MB (CK-2) Rel Index (1.5-5.0) % Troponin I (0.01-0.034) ng/mL NT-Pro-B Natriuret Pep (<125) pg/mL Total Protein (6.3-8.2) g/dL Albumin (3.5-5.0) g/dL Globulin (1.7-4.1) g/dL Albumin/Globulin Ratio (1.0-2.8) Lipase (23-300) U/L TSH (0.47-4.68) uIU/mL Ketones (<0.27) mmol/L COVID-19 PCR (Negative) Blood Type Antibody Screen Crossmatch Point of Care Testing Glucose POC 67 Point of care testing: Point of Care Testing Glucose POC 67 Critical Care Time <Milton Marcelino, DO - Last Filed: 03/19/20 07:18> Critical Care Time Critical Care Time: Yes Total Critical Care Time: 45 Attestation: The high probability of a clinically significant, sudden or life threatening deterioration of the cardiovascular, endocrine, renal system(s) required my full and direct attention, intervention and personal management. The aggregate critical care time was 45 minutes. This time is in addition to time spent performing reported procedures but includes the following: [X] Data Review and interpretation [X] Patient assessment and monitoring of vital signs [X] Documentation [Max] Medication orders and management Discharge Plan Departure Patient Disposition: [facility] Clinical Impression: Acute hyperkalemia, Acute renal failure, Bradycardia, Shortness of breath, Anemia Discharge Date/Time: 03/18/20 22:00 Prescriptions: No Action acetaminophen 325 mg Tablet 650 mg PO Q4H MDD 3000 mg PRN (Reason: Fever Or Pain) RF: 0 insulin glargine 100 unit/mL Solution 55 units Sub-Q DAILY RF: 0 hydralazine 25 mg Tablet 25 mg PO TID RF: 0 clopidogrel 75 mg tablet 75 mg PO DAILY RF: 0 simvastatin 40 mg Tablet 40 mg PO QPM RF: 0 tamsulosin 0.4 mg capsule,extended release 24hr 0.4 mg PO QPM RF: 0 ascorbic acid (vitamin C) 250 mg Tablet 250 mg PO DAILY RF: 0 amlodipine 10 mg Tablet 10 mg PO QPM RF: 0 ferrous sulfate 325 mg (65 mg iron) Tablet 325 mg PO BID RF: 0 esomeprazole magnesium [Nexium] 40 mg Capsule,Delayed Release(Dr/Ec) 40 mg PO DAILY RF: 0 levothyroxine 200 mcg Tablet 200 mcg PO DAILY RF: 0 multivitamin with minerals Tablet 1 tab PO DAILY RF: 0 mirtazapine 15 mg tablet,disintegrating 15 mg PO BEDTIME RF: 0 fluticasone propionate 50 mcg/actuation spray,suspension 1 spray Intranasal BID RF: 0 bupropion HCl 200 mg Tablet Extended Release 12 Hr 200 mg PO QPM RF: 0 metoprolol tartrate 25 mg Tablet 25 mg PO BID RF: 0 melatonin 5 mg Tablet 5 mg PO BEDTIME RF: 0 cholecalciferol (vitamin D3) 2,000 unit Capsule 2,000 unit PO DAILY RF: 0 Flush 1 dose DAILY RF: 0 Humalog U-100 Insulin 1 dose Sub-Q DIRECTED RF: 0 loperamide 2 mg Capsule 2 mg PO Q4H PRN (Reason: Diarrhea) RF: 0 clonazepam 0.5 mg Tablet 0.5 mg PO TID MDD 3 PRN (Reason: Anxiety) RF: 0 magnesium hydroxide [Milk of Magnesia] 400 mg/5 mL Suspension 30 ml PO PRN PRN (Reason: Constipation) RF: 0 bisacodyl 10 mg Suppository 10 mg W[place] DAILY PRN (Reason: Constipation) RF: 0 sodium phosphates [Fleet Enema] 19-7 gram/118 mL Enema 1 dose W[place] PRN PRN (Reason: Constipation) RF: 0 oxycodone 5 mg Tablet 5 mg PO Q4H PRN (Reason: pain level 3-6) RF: 0 oxycodone 5 mg Tablet 10 mg PO Q4H PRN (Reason: Pain (Scale Score 7-10)) RF: 0 bisacodyl 5 mg Tablet 5 - 10 mg PO PRN PRN (Reason: Constipation) RF: 0 albuterol sulfate 1 vial Inhalation Q4H PRN (Reason: Shortness Of Breath) RF: 0 piperacillin-tazobactam [Zosyn] 3.375 gram Recon Soln 2.25 gram IV Q8H Qty: 0 RF: 0 Referrals: Mayito Boss MD [Primary Care Provider] -
--- NOTE | 2020-03-18 16:08 | DI.RAD.S_ITS ---
PROCEDURE: XR CHEST 1V INDICATIONS: Bradycardia and weakness TECHNIQUE: One view of the chest was acquired. COMPARISON: [facility], CR, XR CHEST 1V, 10/21/2017, 15:54. FINDINGS: Surgical changes and devices: None. Lungs and pleura: No pneumothorax. Diffuse interstitial prominence with vascular congestion. Bilateral pleural effusions larger on the left. Streaky bibasilar opacities. Mediastinum: Mediastinal contours appear stable. Heart size is enlarged. Bones and chest wall: No suspicious bony lesions. Overlying soft tissues appear unremarkable. IMPRESSION: Findings consistent with pulmonary edema/CHF. Concurrent infectious/inflammatory process not excluded if clinically appropriate. Dictated by: Chang Sanchez M.D. on 03/18/2020 at 15:59 Approved by: Chang Sanchez M.D. on 03/18/2020 at 16:01
[2020-03-18 16:22] LABS: INR 1.1 (0.9-1.3); Prothrombin Time 12.7 SECONDS (10.1-12.7)
[2020-03-18 16:25] LABS: Add Manual Diff / Slide Review NO; Basophils Absolute Auto 100 /uL (0-100); Basophils Percent Auto 1.1 % (0-2); Creatine Kinase 553 U/L (55-170); Eosinophils Absolute Auto 200 /uL (0-450); Eosinophils Percent Auto 2.7 % (2-4); Hematocrit 21.2 % (41-53); Lipase 103 U/L (23-300); Lymphocytes Absolute Auto 700 /uL (1100-4500); Lymphocytes Percent Auto 11.4 % (25-40); Mean Corpuscular HGB Conc 31.3 % (30-36); Mean Corpuscular Hemoglobin 29.9 PG (26-34); Mean Corpuscular Volume 95.5 fL (80-100); Monocytes Absolute Auto 400 /uL (0-900); Monocytes Percent Auto 6.6 % (3-14); Neutrophils Absolute Auto 5000 /uL (1500-7000); Neutrophils Percent Auto 78.2 % (50-75); PTT Partial Thromboplastin Tim 32 SECONDS (26.4-36.2); Platelet Count 270 X10^3/uL (150-400); Red Blood Cell Count 2.22 X10^6/uL (4.5-5.9); Red Cell Distribution Width 17.4 % (11.6-14.8); White Blood Cell Count 6.4 X10^3/uL (4.5-11.0)
[2020-03-18 16:39] LABS: NT-proBNP (BNP-Adult 18+) 11200 pg/mL (<125); Troponin I 0.044 ng/mL (0.01-0.034)
[2020-03-18 16:49] LABS: Hemoglobin 6.6 g/dL (13.5-17.5)
[2020-03-18 16:54] LABS: CKMB % Relative Index 1.3 % (1.5-5.0); Creatine Kinase MB 6.92 ng/mL (<2.37)
[2020-03-18 17:05] LABS: Alanine Aminotransferase 35 IU/L (<50); Albumin 3.5 g/dL (3.5-5.0); Albumin Globulin Ratio 1.1 (1.0-2.8); Alkaline Phosphatase 120 U/L (38-126); Aspartate Aminotransferase 60 IU/L (17-59); Bilirubin Total 0.7 mg/dL (0.2-1.3); Calcium 9.1 mg/dL (8.4-10.2); Carbon Dioxide 15 mmol/L (22-32); Chloride 112 mmol/L (98-107); Estimated Glomerular Filt Rate 7.1 mL/min (>60); Globulin 3.1 g/dL (1.7-4.1); Glucose 71 mg/dL (80-110); HEMOLYSIS < 15 (0-50); Sodium 139 mmol/L (137-145); Total Protein 6.6 g/dL (6.3-8.2)
[2020-03-18 17:07] LABS: Thyroid Stimulating Hormone 0.049 uIU/mL (0.47-4.68)
[2020-03-18 17:11] LABS: BUN Creatinine Ratio 16.4 (6-22)
[2020-03-18 17:12] LABS: Potassium 8.1 mmol/L (3.4-5.1)
[2020-03-18 17:13] LABS: Blood Urea Nitrogen 125 mg/dL (9-20)
[2020-03-18] MEDS: DOPAMINE HCL IN DEXTROSE 5 % 400 MG/250 ML PLAST..BAG 9.1 MG IV (17:25)
[2020-03-18] MEDS: SODIUM CHLORIDE 0.9% 1,000 ML 500 ML IV (17:25)
[2020-03-18 17:42] LABS: PCO2 VBG 29.5 mmHg (45-50)
[2020-03-18 17:43] LABS: HCO3 VBG 14 mmol/L (23-28); PO2 VBG 48 mmHg (35-45); Total CO2 VBG 15 mmol/L (24-29); pH VBG 7.29 (7.33-7.43)
[2020-03-18] MEDS: SODIUM BICARB 8.4% SYRINGE 50 MEQ IV (17:43)
[2020-03-18 17:45] LABS: Oxygen Saturation VBG 79 % (70-75)
[2020-03-18 17:46] LABS: COVID19 -Nasal RAPID Negative (Negative)
[2020-03-18] MEDS: INSULIN REGULAR 100 UNIT/ML 3 ML VIAL 10 UNIT IV (17:56)
[2020-03-18] MEDS: DEXTROSE 50 % IN WATER 25 GM/50 ML SYRINGE IV (18:00)
[2020-03-18] MEDS: CALCIUM GLUCONATE 4.65 MEQ in SODIUM CHLORIDE 0.9% 50 ML 180 ML IV (18:09)
[2020-03-18 18:10] LABS: Magnesium 2.3 mg/dL (1.6-2.3)
[2020-03-18 18:14] LABS: Ketones (Beta-Hydroxybutyrate) 0.15 mmol/L (<0.27)
[2020-03-18] MEDS: SODIUM POLYSTYRENE SULFON/SORB 15 GM/60 ML CUP 30 GM PO (18:18)
[2020-03-18] MEDS: ALBUTEROL 2.5 MG/3 ML NEB (ADULT) 5 MG INH (18:26)
[2020-03-18] MEDS: FUROSEMIDE 100 MG/10 ML VIAL 80 MG IV (18:42)
[2020-03-18 20:05] LABS: BUN Creatinine Ratio 16.1 (6-22); Calcium 9.1 mg/dL (8.4-10.2); Carbon Dioxide 16 mmol/L (22-32); Chloride 114 mmol/L (98-107); Estimated Glomerular Filt Rate 7.3 mL/min (>60); Glucose 56 mg/dL (80-110); HEMOLYSIS < 15 (0-50); Sodium 140 mmol/L (137-145)
[2020-03-18 20:21] LABS: Potassium 7.1 mmol/L (3.4-5.1)
[2020-03-18 20:22] LABS: Blood Urea Nitrogen 119 mg/dL (9-20)
== END 2020-03-18 22:00 | disposition short-term general hospital (02) ==
PROVIDERS: Emergency Medicine; Emergency Provider Emergency Medicine; Family Provider Internal Medicine; PCP Internal Medicine
DX: E87.5 Hyperkalemia (principal); N17.9 Acute kidney failure, unspecified; R00.1 Bradycardia, unspecified; R06.02 Shortness of breath; R06.00 Dyspnea, unspecified; D64.9 Anemia, unspecified; E11.9 Type 2 diabetes mellitus without complications; I10 Essential (primary) hypertension
CPT/HCPCS: 36415; 71045; 80048; 80053; 82009; 82550; 82553; 82805; 82962; 83690; 83735; 83880; 84100; 84443; 84484; 85025; 85610; 85730; 86850; 86900; 86901; 87635; 93005; 94640; 96361; 96365; 96375; 99284; 99291; J0610; J1940; J7613

== ENCOUNTER 2020-05-10 15:50 | Emergency (ER) | payer MEDICARE, OTHER, SELFPAY ==
[2020-05-10] VITALS (7 sets, daily range): BP systolic 132–149; BP diastolic 61–67; PULSE 72–78; RESP 12–38; TEMP 37; O2SAT 88–97
--- NOTE | 2020-05-10 16:31 | DI.RAD.S_ITS ---
PROCEDURE: XR CHEST 1V INDICATIONS: short of breath TECHNIQUE: One view of the chest was acquired. COMPARISON: [facility], CR, XR CHEST 1V, 03/18/2020, 16:09. FINDINGS: Surgical changes and devices: None. Lungs and pleura: There is pulmonary vascular congestion and hazy opacities throughout bilateral lung duncan suggestive of pulmonary edema. There are small bilateral pleural effusion and bibasilar atelectasis. No gross pneumothorax. Mediastinum: Aortic arch calcifications are seen. Heart size is enlarged Bones and chest wall: No suspicious bony lesions. Overlying soft tissues appear unremarkable. IMPRESSION: CHF changes and small bilateral pleural effusion with pulmonary edema. Underlying small bilateral lower lobe infiltrates cannot be excluded. No pneumothorax. Dictated by: Murray Crane M.D. on 05/10/2020 at 17:05 Approved by: Murray Crane M.D. on 05/10/2020 at 17:11
--- NOTE | 2020-05-10 16:34 | ED_ITS ---
HPI - SOB/Dyspnea General Chief Complaint: Shortness of Breath/Dyspnea Stated Complaint: SHORT OF BREATH Time Seen by Provider: 05/10/20 16:32 Source: patient Mode of arrival: Wheelchair Limitations: no limitations History of Present Illness HPI Narrative: Patient is a 69-year-old male with history of diabetes and b ilateral AKA presenting today with increasing shortness of breath. He said it started yesterday and was feeling weak fatigued having difficulty breathing. He said through the night it has progressively gotten worse. His O2 sat on room air in the ED is 80%. He denies fever or cough although his has had cough unsure if it was COVID-19. He just generally does not feel well. He was found to have hyperkalemia last month and was transferred to [facility]. Complaint: shortness of breath Onset (ago): day(s) Relieving factors: oxygen and rest Related Data Home Medications Medication Instructions Recorded Confirmed Flush 1 dose DAILY 10/21/17 10/21/17 Humalog U-100 Insulin 1 dose SUB-Q DIRECTED 10/21/17 10/21/17 acetaminophen 650 mg PO Q4H PRN MDD 3000 mg 10/21/17 10/21/17 albuterol sulfate 1 vial INHALATION Q4H PRN 10/21/17 10/21/17 amlodipine 10 mg PO QPM 10/21/17 10/21/17 ascorbic acid (vitamin C) 250 mg PO DAILY 10/21/17 10/21/17 bisacodyl 5 - 10 mg PO PRN PRN 10/21/17 10/21/17 bisacodyl 10 mg MD DAILY PRN 10/21/17 10/21/17 bupropion HCl 200 mg PO QPM 10/21/17 10/21/17 cholecalciferol (vitamin D3) 2,000 unit PO DAILY 10/21/17 10/21/17 clonazepam 0.5 mg PO TID PRN MDD 3 10/21/17 10/21/17 clopidogrel 75 mg PO DAILY 10/21/17 10/21/17 esomeprazole magnesium [Nexium] 40 mg PO DAILY 10/21/17 10/21/17 ferrous sulfate 325 mg PO BID 10/21/17 10/21/17 fluticasone propionate 1 spray INTRANASAL BID 10/21/17 10/21/17 hydralazine 25 mg PO TID 10/21/17 10/21/17 insulin glargine 55 units SUB-Q DAILY 10/21/17 10/21/17 levothyroxine 200 mcg PO DAILY 10/21/17 10/21/17 loperamide 2 mg PO Q4H PRN 10/21/17 10/21/17 magnesium hydroxide [Milk of 30 ml PO PRN PRN 10/21/17 10/21/17 Magnesia] melatonin 5 mg PO BEDTIME 10/21/17 10/21/17 metoprolol tartrate 25 mg PO BID 10/21/17 10/21/17 mirtazapine 15 mg PO BEDTIME 10/21/17 10/21/17 multivitamin with minerals 1 tab PO DAILY 10/21/17 10/21/17 oxycodone 5 mg PO Q4H PRN 10/21/17 10/21/17 oxycodone 10 mg PO Q4H PRN 10/21/17 10/21/17 simvastatin 40 mg PO QPM 10/21/17 10/21/17 sodium phosphates [Fleet Enema] 1 dose MD PRN PRN 10/21/17 10/21/17 tamsulosin 0.4 mg PO QPM 10/21/17 10/21/17 Previous Rx's Medication Instructions Recorded piperacillin-tazobactam [Zosyn] 2.25 gram IV Q8H #0 each 10/25/17 Allergies Allergy/AdvReac Type Severity Reaction Status Date / Time No Known Allergies Allergy Verified 05/10/20 16:30 Review of Systems Review of Systems ROS Unobtainable: All systems reviewed & are unremarkable except as noted in HPI and below Constitutional Constitutional: Reports fatigue, Denies frequent falls, Reports lethargy and Rep orts malaise ENT Ears, Nose, Mouth, and Throat: Denies change in voice, Denies dizziness, Denies neck pain and Denies sore throat Cardiovascular Cardiovascular: Reports dyspnea and Reports dyspnea on exertion Respiratory Respiratory: Reports dyspnea and Reports dyspnea on exertion Gastrointestinal Gastrointestinal: Denies abdominal pain, Denies change in bowel habits, Denies diarrhea, Denies nausea and Denies vomiting Musculoskeletal Musculoskeletal: Reports myalgias, Denies neck pain and Denies numbness Integumentary/Breasts Skin/Breast: Denies pruritus, Denies erythema, Denies rash and Denies wounds Neurologic Neurologic: Denies behavioral changes, Denies confusion, Denies dizziness, Denies frequent falls and Denies numbness Psychiatric Psychiatric: Denies behavioral changes and Denies confusion Endocrine Endocrine: Reports fatigue Patient History Medical History 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 Chronic kidney disease (CKD) stage G4/A1, severely decreased glomerular filtration rate (GFR) between 15-29 mL/min/1.73 square meter and albuminuria creatinine ratio less than 30 mg/g Diabetes GERD (gastroesophageal reflux disease) Hypertension Hypothyroidism Peripheral vascular disease Surgical History Hx of cholecystectomy Social History household members: spouse and children Smoking Status: Former smoker alcohol intake: never Smoking Status: Former smoker alcohol intake frequency: other Substance Use Type: does not use Exam Initial Vital Signs Initial Vital Signs: Vital Signs Temperature 98.6 F 05/10/20 16:27 Pulse Rate 78 05/10/20 16:27 Respiratory Rate 28 H 05/10/20 16:27 Blood Pressure 132/62 05/10/20 16:27 Pulse Oximetry 88 L 05/10/20 16:27 GENERAL: Alert chronically ill male in moderate respiratory distress HEENT: Head atraumatic,EOMI, pupils reactive, face symmetric, [moist] mucous membranes CARDIOVASCULAR: Regular rate and rhythm without murmurs, rubs or gallops. RESPIRATORY: Coarse breath sounds bilaterally ABDOMEN: Soft, nontender. Normoactive bowel sounds all 4 quadrants. No guarding or rebound. EXTREMITIES: Bilateral AKA no gross bony deformity NEUROLOGICAL: Alert and oriented x4.Normal gait and speech. Cranial nerves II through XII grossly intact. SKIN: Warm, dry, no laceration, no petechiae, no rashes or lesions. Course Orders Ordered: ED Orders 05/10/20 16:30 Complete Blood Count AUTO DIFF Stat Comprehensive Metabolic Panel Stat Lactate (Lactic Acid) Stat NT-proBNP (BNP-Adult 18+) Stat Partial Thromboplastin Time Stat Prothrombin Time INR Stat Troponin & CK Cardiac Panel Stat EKG-12 Lead Stat Measure peak expiratory flow ONCE RT Consult Eval and Treat Now 05/10/20 16:31 XR chest 1V Stat 05/10/20 16:44 COVID19 Stat 05/10/20 16:55 Arterial Blood Gas Stat Discontinued Medications Furosemide (Furosemide 100 Mg/10 Ml Vial) 80 mg IV NOW ONE Stop: 05/10/20 16:50 Last Admin: 05/10/20 17:15 Dose: 80 mg Documented by: MMINOR Heparin Sodium (Porcine) (Heparin 5,000 Unit/Ml Vial) 5,000 unit IV NOW ONE Stop: 05/10/20 17:12 Last Admin: 05/10/20 17:24 Dose: 5,000 unit Documented by: MMINOR Heparin Sodium/Dextrose (Heparin Drip) 25,000 unit in 500 mls @ 20 mls/hr IV CONT ULICES; Protocol Last Admin: 05/10/20 17:25 Dose: 1,000 units/hr, 20 mls/hr Documented by: MMINOR Vital Signs Vital signs: Vital Signs - 8 hr 05/10/20 16:27 05/10/20 16:32 05/10/20 16:41 Temperature 98.6 F Pulse Rate 78 75 Respiratory Rate 28 H 22 Blood Pressure 132/62 145/67 H Pulse Oximetry 88 L 92 97 05/10/20 17:00 05/10/20 17:30 05/10/20 18:00 Temperature Pulse Rate 75 75 72 Respiratory Rate 26 H 12 22 Blood Pressure 149/65 H 143/67 H 135/61 Pulse Oximetry 97 96 96 05/10/20 18:30 Temperature Pulse Rate 73 Respiratory Rate 38 H Blood Pressure 141/67 H Pulse Oximetry 97 MDM - SOB/Dyspnea Lab Data Attestation: I reviewed the patient's lab results. Result diagrams: 05/10/20 16:30 05/10/20 16:30 Labs: Lab Results 05/10/20 05/10/20 05/10/20 Range/Units 16:30 16:30 16:30 WBC 10.4 (4.5-11.0) X10^3/uL RBC 2.74 L (4.5-5.9) X10^6/uL Hgb 8.1 L (13.5-17.5) g/dL Hct 25.8 L (41-53) % MCV 94.3 (80-100) fL MCH 29.6 (26-34) PG MCHC 31.4 (30-36) % RDW 16.8 H (11.6-14.8) % Plt Count 274 (150-400) X10^3/uL Neut % (Auto) 83.2 H (50-75) % Lymph % (Auto) 8.7 L (25-40) % [place] % (Auto) 7.3 (3-14) % Eos % (Auto) 0.4 L (2-4) % Baso % (Auto) 0.4 (0-2) % Neut # (Auto) 8600 H (8256-6610) /uL Lymph # (Auto) 900 L (0377-0899) /uL [place] # (Auto) 800 (0-900) /uL Eos # (Auto) 0 (0-450) /uL Baso # (Auto) 0 (0-100) /uL PT (10.1-12.7) SECONDS INR (0.9-1.3) APTT (26.4-36.2) SECONDS ABG pH (7.35-7.45) ABG pCO2 (35-45) mmHg ABG pO2 (80-100) mmHg ABG HCO3 (22-26) mmol/L ABG Total CO2 (21-31) mmol/L ABG O2 Saturation (95-100) % ABG Base Excess (-2-2) mmol/L FiO2 Sodium 141 (137-145) mmol/L Potassium 4.2 (3.4-5.1) mmol/L Chloride 115 H (98-107) mmol/L Carbon Dioxide 11 L (22-32) mmol/L BUN 85 H (9-20) mg/dL Creatinine 6.06 H (0.66-1.25) mg/dL Estimated GFR 9.2 L (>60) mL/min BUN/Creatinine Ratio 14.0 (6-22) Glucose 128 H (80-110) mg/dL Lactate 1.0 (0.7-2.1) mmol/L Calcium 7.9 L (8.4-10.2) mg/dL Total Bilirubin 0.3 (0.2-1.3) mg/dL AST 44 (17-59) IU/L ALT 24 (<50) IU/L Alkaline Phosphatase 195 H (38-126) U/L Total Creatine Kinase (55-170) U/L CK-MB (CK-2) (<2.37) ng/mL CK-MB (CK-2) Rel Index (1.5-5.0) % Troponin I (0.01-0.034) ng/mL NT-Pro-B Natriuret Pep Cancelled Total Protein 6.5 (6.3-8.2) g/dL Albumin 3.1 L (3.5-5.0) g/dL Globulin 3.4 (1.7-4.1) g/dL Albumin/Globulin Ratio 0.9 L (1.0-2.8) SARS-CoV-2 (PCR) (Negative) 05/10/20 05/10/20 05/10/20 Range/Units 16:30 16:30 16:30 WBC (4.5-11.0) X10^3/uL RBC (4.5-5.9) X10^6/uL Hgb (13.5-17.5) g/dL Hct (41-53) % MCV (80-100) fL MCH (26-34) PG MCHC (30-36) % RDW (11.6-14.8) % Plt Count (150-400) X10^3/uL Neut % (Auto) (50-75) % Lymph % (Auto) (25-40) % [place] % (Auto) (3-14) % Eos % (Auto) (2-4) % Baso % (Auto) (0-2) % Neut # (Auto) (3553-7236) /uL Lymph # (Auto) (1314-8563) /uL [place] # (Auto) (0-900) /uL Eos # (Auto) (0-450) /uL Baso # (Auto) (0-100) /uL PT 14.0 H (10.1-12.7) SECONDS INR 1.2 (0.9-1.3) APTT 30 (26.4-36.2) SECONDS ABG pH (7.35-7.45) ABG pCO2 (35-45) mmHg ABG pO2 (80-100) mmHg ABG HCO3 (22-26) mmol/L ABG Total CO2 (21-31) mmol/L ABG O2 Saturation (95-100) % ABG Base Excess (-2-2) mmol/L FiO2 Sodium (137-145) mmol/L Potassium (3.4-5.1) mmol/L Chloride (98-107) mmol/L Carbon Dioxide (22-32) mmol/L BUN (9-20) mg/dL Creatinine (0.66-1.25) mg/dL Estimated GFR (>60) mL/min BUN/Creatinine Ratio (6-22) Glucose (80-110) mg/dL Lactate (0.7-2.1) mmol/L Calcium (8.4-10.2) mg/dL Total Bilirubin (0.2-1.3) mg/dL AST (17-59) IU/L ALT (<50) IU/L Alkaline Phosphatase (38-126) U/L Total Creatine Kinase 190 H (55-170) U/L CK-MB (CK-2) 0.59 (<2.37) ng/mL CK-MB (CK-2) Rel Index 0.3 L (1.5-5.0) % Troponin I 3.600 H* (0.01-0.034) ng/mL NT-Pro-B Natriuret Pep 83559 H Total Protein (6.3-8.2) g/dL Albumin (3.5-5.0) g/dL Globulin (1.7-4.1) g/dL Albumin/Globulin Ratio (1.0-2.8) SARS-CoV-2 (PCR) (Negative) 05/10/20 05/10/20 Range/Units 16:44 16:55 WBC (4.5-11.0) X10^3/uL RBC (4.5-5.9) X10^6/uL Hgb (13.5-17.5) g/dL Hct (41-53) % MCV (80-100) fL MCH (26-34) PG MCHC (30-36) % RDW (11.6-14.8) % Plt Count (150-400) X10^3/uL Neut % (Auto) (50-75) % Lymph % (Auto) (25-40) % [place] % (Auto) (3-14) % Eos % (Auto) (2-4) % Baso % (Auto) (0-2) % Neut # (Auto) (9813-3209) /uL Lymph # (Auto) (7850-8749) /uL [place] # (Auto) (0-900) /uL Eos # (Auto) (0-450) /uL Baso # (Auto) (0-100) /uL PT (10.1-12.7) SECONDS INR (0.9-1.3) APTT (26.4-36.2) SECONDS ABG pH 7.22 L* (7.35-7.45) ABG pCO2 24.8 L* (35-45) mmHg ABG pO2 89 (80-100) mmHg ABG HCO3 10 L (22-26) mmol/L ABG Total CO2 11 L (21-31) mmol/L ABG O2 Saturation 95 (95-100) % ABG Base Excess -17.0 L (-2-2) mmol/L FiO2 36 Sodium (137-145) mmol/L Potassium (3.4-5.1) mmol/L Chloride (98-107) mmol/L Carbon Dioxide (22-32) mmol/L BUN (9-20) mg/dL Creatinine (0.66-1.25) mg/dL Estimated GFR (>60) mL/min BUN/Creatinine Ratio (6-22) Glucose (80-110) mg/dL Lactate (0.7-2.1) mmol/L Calcium (8.4-10.2) mg/dL Total Bilirubin (0.2-1.3) mg/dL AST (17-59) IU/L ALT (<50) IU/L Alkaline Phosphatase (38-126) U/L Total Creatine Kinase (55-170) U/L CK-MB (CK-2) (<2.37) ng/mL CK-MB (CK-2) Rel Index (1.5-5.0) % Troponin I (0.01-0.034) ng/mL NT-Pro-B Natriuret Pep Total Protein (6.3-8.2) g/dL Albumin (3.5-5.0) g/dL Globulin (1.7-4.1) g/dL Albumin/Globulin Ratio (1.0-2.8) SARS-CoV-2 (PCR) Negative (Negative) Imaging Data Chest x-ray: Radiologist's Impression: PROCEDURE: XR CHEST 1V INDICATIONS: short of breath TECHNIQUE: One view of the chest was acquired. COMPARISON: [facility], CR, XR CHEST 1V, 03/18/2020, 16:09. FINDINGS: Surgical changes and devices: None. Lungs and pleura: There is pulmonary vascular congestion and hazy opacities throughout bilateral lung duncan suggestive of pulmonary edema. There are small bilateral pleural effusion and bibasilar atelectasis. No gross pneumothorax. Mediastinum: Aortic arch calcifications are seen. Heart size is enlarged Bones and chest wall: No suspicious bony lesions. Overlying soft tissues appear unremarkable. IMPRESSION: CHF changes and small bilateral pleural effusion with pulmonary edema. Underlying small bilateral lower lobe infiltrates cannot be excluded. No pneumothorax. Dictated by: Murray Crane M.D. on 05/10/2020 at 17:05 Approved by: Murray Crane M.D. on 05/10/2020 at 17:11 ECG Data Attestation: I personally reviewed and interpreted this ECG as follows: Prior ECG tracings: available for review Interpretation: Normal sinus rhythm rate [address] changes p.r. interval [address] changes or T-wave inversions similar to previous EKG actually improved from previous EKG MDM Narrative Medical decision making narrative: Patient was immediately placed on O2 he started feeling much better. ABG does show that he is acidotic with pH of 7.2 CO2 of 24 and O2 of 89 on 4 L. troponin has returned and is positive at 3.6. This is likely related to in NSTEMI rather than to his kidney disease. Previously he had a troponin of 0.041 month ago. Patient reports that he has never had any chest pain it only is difficulty breathing. Electrolytes fortunately are within normal limits including potassium. Creatinine is 6.[address] Hanley hospitalist at [facility] accepts patient Critical Care Time Critical Care Time Critical Care Time: Yes Total Critical Care Time: 45 Attestation: The high probability of a clinically significant, sudden or life threatening deterioration of the [cardiovascular] system(s) required my full and direct attention, intervention and personal management. The aggregate critical care time was [45] minutes. This time is in addition to time spent performing reported procedures but includes the following: [x] Data Review and interpretation [x] Patient assessment and monitoring of vital signs [x] Documentation [x] Medication orders and management Discharge Plan Departure Patient Disposition: [facility] Clinical Impression: Non-ST elevation (NSTEMI) myocardial infarction, Acute hypoxemic respiratory failure, Acute renal failure Prescriptions: No Action acetaminophen 325 mg Tablet 650 mg PO Q4H MDD 3000 mg PRN (Reason: Fever Or Pain) RF: 0 insulin glargine 100 unit/mL Solution 55 units Sub-Q DAILY RF: 0 hydralazine 25 mg Tablet 25 mg PO TID RF: 0 clopidogrel 75 mg tablet 75 mg PO DAILY RF: 0 simvastatin 40 mg Tablet 40 mg PO QPM RF: 0 tamsulosin 0.4 mg capsule,extended release 24hr 0.4 mg PO QPM RF: 0 ascorbic acid (vitamin C) 250 mg Tablet 250 mg PO DAILY RF: 0 amlodipine 10 mg Tablet 10 mg PO QPM RF: 0 ferrous sulfate 325 mg (65 mg iron) Tablet 325 mg PO BID RF: 0 esomeprazole magnesium [Nexium] 40 mg Capsule,Delayed Release(Dr/Ec) 40 mg PO DAILY RF: 0 levothyroxine 200 mcg Tablet 200 mcg PO DAILY RF: 0 multivitamin with minerals Tablet 1 tab PO DAILY RF: 0 mirtazapine 15 mg tablet,disintegrating 15 mg PO BEDTIME RF: 0 fluticasone propionate 50 mcg/actuation spray,suspension 1 spray Intranasal BID RF: 0 bupropion HCl 200 mg Tablet Extended Release 12 Hr 200 mg PO QPM RF: 0 metoprolol tartrate 25 mg Tablet 25 mg PO BID RF: 0 melatonin 5 mg Tablet 5 mg PO BEDTIME RF: 0 cholecalciferol (vitamin D3) 2,000 unit Capsule 2,000 unit PO DAILY RF: 0 Flush 1 dose DAILY RF: 0 Humalog U-100 Insulin 1 dose Sub-Q DIRECTED RF: 0 loperamide 2 mg Capsule 2 mg PO Q4H PRN (Reason: Diarrhea) RF: 0 clonazepam 0.5 mg Tablet 0.5 mg PO TID MDD 3 PRN (Reason: Anxiety) RF: 0 magnesium hydroxide [Milk of Magnesia] 400 mg/5 mL Suspension 30 ml PO PRN PRN (Reason: Constipation) RF: 0 bisacodyl 10 mg Suppository 10 mg MD DAILY PRN (Reason: Constipation) RF: 0 sodium phosphates [Fleet Enema] 19-7 gram/118 mL Enema 1 dose MD PRN PRN (Reason: Constipation) RF: 0 oxycodone 5 mg Tablet 5 mg PO Q4H PRN (Reason: pain level 3-6) RF: 0 oxycodone 5 mg Tablet 10 mg PO Q4H PRN (Reason: Pain (Scale Score 7-10)) RF: 0 bisacodyl 5 mg Tablet 5 - 10 mg PO PRN PRN (Reason: Constipation) RF: 0 albuterol sulfate 1 vial Inhalation Q4H PRN (Reason: Shortness Of Breath) RF: 0 piperacillin-tazobactam [Zosyn] 3.375 gram Recon Soln 2.25 gram IV Q8H Qty: 0 RF: 0 Referrals: Mayito Boss MD [Primary Care Provider] -
[2020-05-10 16:50] LABS: INR 1.2 (0.9-1.3)
[2020-05-10 16:53] LABS: Add Manual Diff / Slide Review NO; Basophils Absolute Auto 0 /uL (0-100); Basophils Percent Auto 0.4 % (0-2); Eosinophils Absolute Auto 0 /uL (0-450); Eosinophils Percent Auto 0.4 % (2-4); Hematocrit 25.8 % (41-53); Hemoglobin 8.1 g/dL (13.5-17.5); Lymphocytes Absolute Auto 900 /uL (1100-4500); Lymphocytes Percent Auto 8.7 % (25-40); Mean Corpuscular HGB Conc 31.4 % (30-36); Mean Corpuscular Hemoglobin 29.6 PG (26-34); Mean Corpuscular Volume 94.3 fL (80-100); Monocytes Absolute Auto 800 /uL (0-900); Monocytes Percent Auto 7.3 % (3-14); Neutrophils Absolute Auto 8600 /uL (1500-7000); Neutrophils Percent Auto 83.2 % (50-75); Platelet Count 274 X10^3/uL (150-400); Red Blood Cell Count 2.74 X10^6/uL (4.5-5.9); Red Cell Distribution Width 16.8 % (11.6-14.8); White Blood Cell Count 10.4 X10^3/uL (4.5-11.0)
[2020-05-10 16:56] LABS: Alanine Aminotransferase 24 IU/L (<50); Albumin 3.1 g/dL (3.5-5.0); Albumin Globulin Ratio 0.9 (1.0-2.8); Alkaline Phosphatase 195 U/L (38-126); Aspartate Aminotransferase 44 IU/L (17-59); Bilirubin Total 0.3 mg/dL (0.2-1.3); Blood Urea Nitrogen 85 mg/dL (9-20); Calcium 7.9 mg/dL (8.4-10.2); Carbon Dioxide 11 mmol/L (22-32); Chloride 115 mmol/L (98-107); Creatine Kinase 190 U/L (55-170); Estimated Glomerular Filt Rate 9.2 mL/min (>60); Globulin 3.4 g/dL (1.7-4.1); Glucose 128 mg/dL (80-110); HEMOLYSIS < 15 (0-50); Potassium 4.2 mmol/L (3.4-5.1); Sodium 141 mmol/L (137-145); Total Protein 6.5 g/dL (6.3-8.2)
[2020-05-10 17:08] LABS: COVID19 -Nasal RAPID Negative (Negative)
[2020-05-10] MEDS: FUROSEMIDE 100 MG/10 ML VIAL 80 MG IV (17:15)
[2020-05-10 17:23] LABS: NT-proBNP (BNP-Adult 18+) 47800 pg/mL (<125)
[2020-05-10 17:23] LABS: PCO2 ABG 24.8 mmHg (35-45); PO2 ABG 89 mmHg (80-100); pH ABG 7.22 (7.35-7.45)
[2020-05-10 17:24] LABS: HCO3 ABG 10 mmol/L (22-26); Oxygen Saturation ABG 95 % (95-100); TCO2 ABG 11 mmol/L (21-31)
[2020-05-10] MEDS: HEPARIN 5,000 UNIT/ML VIAL 5000 UNIT IV (17:24)
[2020-05-10 17:25] LABS: Fractionated Inspired Oxygen 36
[2020-05-10] MEDS: HEPARIN DRIP 25,000 UNIT/500 ML IV.SOLN 20 UNIT IV (17:25)
[2020-05-10 17:41] LABS: PTT Partial Thromboplastin Tim 30 SECONDS (26.4-36.2)
[2020-05-10 17:42] LABS: CKMB % Relative Index 0.3 % (1.5-5.0); Creatine Kinase MB 0.59 ng/mL (<2.37)
--- NOTE | 2020-05-10 19:11 | PC.NURSE ---
pt report to KAYCE Childs at [facility] [phone]
--- NOTE | 2020-05-24 07:43 | PC.NURSE ---
stop time on Heparin IV 1900
== END 2020-05-10 19:13 | disposition short-term general hospital (02) ==
PROVIDERS: Emergency Provider Emergency Medicine; Family Provider Internal Medicine; PCP Internal Medicine
DX: I21.4 Non-ST elevation (NSTEMI) myocardial infarction (principal); J96.01 Acute respiratory failure with hypoxia; N17.9 Acute kidney failure, unspecified; I26.99 Other pulmonary embolism without acute cor pulmonale; I50.9 Heart failure, unspecified; R53.83 Other fatigue; I10 Essential (primary) hypertension; E03.9 Hypothyroidism, unspecified; Z20.828 Contact with and (suspected) exposure to other viral communicable diseases
CPT/HCPCS: 36415; 36600; 51701; 71045; 80053; 82550; 82553; 82805; 83605; 83880; 84484; 85025; 85610; 85730; 87635; 93005; 96365; 96366; 96375; 99284; 99291; 99292; J1644; J1940

== ENCOUNTER 2020-09-19 14:27 | Emergency (ER) | payer MEDICARE, OTHER, SELFPAY ==
[2020-09-19] VITALS (24 sets, daily range): BP systolic 132–172; BP diastolic 63–87; PULSE 47–60; RESP 17–39; TEMP 35.9; O2SAT 88–97
--- NOTE | 2020-09-19 14:38 | ED_ITS ---
HPI - Chest Pain General Chief Complaint: Chest Pain Stated Complaint: chest pain since this morning Time Seen by Provider: 09/19/20 14:30 Source: patient and family Mode of arrival: Wheelchair Limitations: no limitations History of Present Illness HPI narrative: 70-year-old male former smoker with extensive and complicated medical history including myocardial infarction, respiratory failure, chronic kidney disease on hemodialysis Thursday and Thursday, bilateral [id number] amputee presents by family with a chief complaint of left anterior chest pain and pressure with radiation to the left shoulder over much of the morning. He denies any obvious provocation or palliation of his symptoms but states it is squeezing and heavy in nature. Additionally, he has become significantly short of breath with minimal exertion and lying flat. He had been in the process of trying to transition from hemodialysis to peritoneal dialysis but apparently was not working all that well and he had upwards of a 20 lb weight gain which has been dialyzed over the past week or 2 and he is now largely back at his baseline. He denies any fever or chills. He denies any runny nose, sore throat or cough MD complaint: chest pain Related Data Home Medications Medication Instructions Recorded Confirmed Flush 1 dose DAILY 10/21/17 10/21/17 Humalog U-100 Insulin 1 dose SUB-Q DIRECTED 10/21/17 10/21/17 acetaminophen 650 mg PO Q4H PRN MDD 3000 mg 10/21/17 10/21/17 albuterol sulfate 1 vial INHALATION Q4H PRN 10/21/17 10/21/17 amlodipine 10 mg PO QPM 10/21/17 10/21/17 ascorbic acid (vitamin C) 250 mg PO DAILY 10/21/17 10/21/17 bisacodyl 5 - 10 mg PO PRN PRN 10/21/17 10/21/17 bisacodyl 10 mg UT DAILY PRN 10/21/17 10/21/17 bupropion HCl 200 mg PO QPM 10/21/17 10/21/17 cholecalciferol (vitamin D3) 2,000 unit PO DAILY 10/21/17 10/21/17 clonazepam 0.5 mg PO TID PRN MDD 3 10/21/17 10/21/17 clopidogrel 75 mg PO DAILY 10/21/17 10/21/17 esomeprazole magnesium [Nexium] 40 mg PO DAILY 10/21/17 10/21/17 ferrous sulfate 325 mg PO BID 10/21/17 10/21/17 fluticasone propionate 1 spray INTRANASAL BID 10/21/17 10/21/17 hydralazine 25 mg PO TID 10/21/17 10/21/17 insulin glargine 55 units SUB-Q DAILY 10/21/17 10/21/17 levothyroxine 200 mcg PO DAILY 10/21/17 10/21/17 loperamide 2 mg PO Q4H PRN 10/21/17 10/21/17 magnesium hydroxide [Milk of 30 ml PO PRN PRN 10/21/17 10/21/17 Magnesia] melatonin 5 mg PO BEDTIME 10/21/17 10/21/17 metoprolol tartrate 25 mg PO BID 10/21/17 10/21/17 mirtazapine 15 mg PO BEDTIME 10/21/17 10/21/17 multivitamin with minerals 1 tab PO DAILY 10/21/17 10/21/17 oxycodone 5 mg PO Q4H PRN 10/21/17 10/21/17 oxycodone 10 mg PO Q4H PRN 10/21/17 10/21/17 simvastatin 40 mg PO QPM 10/21/17 10/21/17 sodium phosphates [Fleet Enema] 1 dose UT PRN PRN 10/21/17 10/21/17 tamsulosin 0.4 mg PO QPM 10/21/17 10/21/17 Previous Rx's Medication Instructions Recorded piperacillin-tazobactam [Zosyn] 2.25 gram IV Q8H #0 each 10/25/17 Allergies Allergy/AdvReac Type Severity Reaction Status Date / Time No Known Allergies Allergy Verified 05/10/20 16:30 Review of Systems Constitutional Constitutional: Denies chills, Reports fatigue, Denies fever(s), Denies frequent falls, Reports lethargy and Reports weakness Eyes Eyes: Denies change in vision, Denies eye discharge, Denies irritation and Denies loss of vision ENT Ears, Nose, Mouth, and Throat: Denies change in voice, Denies dizziness, Denies neck pain, Denies sore throat and Denies throat swelling Cardiovascular Cardiovascular: Reports chest pain, Denies irregular heart rhythm, Denies lightheadedness, Denies palpitations, Reports dyspnea, Reports dyspnea on exertion and Denies orthopnea Respiratory Respiratory: Denies cough, Reports dyspnea, Reports dyspnea on exertion and Denies wheezing Gastrointestinal Gastrointestinal: Denies abdominal pain, Denies change in bowel habits, Denies diarrhea, Denies nausea and Denies vomiting Musculoskeletal Musculoskeletal: Denies neck pain and Denies numbness Integumentary/Breasts Skin/Breast: Denies pruritus, Denies erythema, Denies rash and Denies wounds Neurologic Neurologic: Denies behavioral changes, Denies confusion, Denies dizziness, Denies frequent falls, Denies loss of vision, Denies numbness and Reports weakness Psychiatric Psychiatric: Denies anxiety, Denies behavioral changes, Denies confusion, Denies depression, Denies homicidal ideation and Denies suicidal ideation Endocrine Endocrine: Reports fatigue, Denies flushing and Denies palpitations Hematologic/Lymphatic Hematologic/Lymphatic: Denies easy bruising Allergic/Immunologic Allergic/Immunologic: Denies urticaria, Denies throat swelling and Denies wheezing Patient History Medical History 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 Chronic kidney disease (CKD) stage G4/A1, severely decreased glomerular fi ltration rate (GFR) between 15-29 mL/min/1.73 square meter and albuminuria creatinine ratio less than 30 mg/g Diabetes GERD (gastroesophageal reflux disease) Hypertension Hypothyroidism Peripheral vascular disease Surgical History Hx of cholecystectomy Social History household members: spouse and children Smoking Status: Former smoker alcohol intake: never Smoking Status: Former smoker alcohol intake frequency: other Substance Use Type: does not use Exam Narrative Exam Narrative: GENERAL: [70] year old patient appears stated age. Chronically ill, unwell and in moderate distress HEAD: Atraumatic. Normocephalic. EYES: Pupils equal round and reactive. Extraocular motions intact. No scleral icterus. No injection or drainage. ENT: Nose without bleeding, purulent drainage. Throat without erythema, tonsillar hypertrophy or exudate. Airway patent. NECK: Trachea midline. Non tender CARDIOVASCULAR: Regular rate and rhythm without murmurs, gallops, or rubs. RESPIRATORY: Increased work of breathing with minimal exertion, tachypnea, use of accessory muscles, bibasilar crackles GASTROINTESTINAL: Abdomen soft, non-tender, nondistended. EXTREMITIES: No edema or joint tenderness. BACK: Nontender without deformity or crepitance. No flank tenderness. NEURO: AOx3. SKIN: No rash or erythema of visible areas Initial Vital Signs Initial Vital Signs: Vital Signs Temperature 96.7 F L 09/19/20 14:41 Pulse Rate 47 L 09/19/20 14:41 Respiratory Rate 19 09/19/20 14:41 Blood Pressure 132/63 09/19/20 14:41 Pulse Oximetry 93 09/19/20 14:41 Course Orders Ordered: ED Orders 09/19/20 14:39 XR chest 1V Stat EKG-12 Lead Stat 09/19/20 15:02 Complete Blood Count AUTO DIFF Stat Comprehensive Metabolic Panel Stat Lipase Stat NT-proBNP (BNP-Adult 18+) Stat Partial Thromboplastin Time Stat Procalcitonin Stat Prothrombin Time INR Stat Troponin & CK Cardiac Panel Stat 09/19/20 15:09 Venous Blood Gas Stat 09/19/20 17:22 COVID19 -Nasal swab/Pre-Proc Stat Sodium Chloride (Normal Saline 0.9%) 1,000 mls @ 150 mls/hr IV CONT ULICES Last Admin: 09/19/20 15:20 Dose: 150 mls/hr Documented by: BTONER Nitroglycerin (Nitroglycerin 0.4 Mg Sl Tab) 0.4 mg SL [id number] PRN PRN Reason: Chest Pain Last Admin: 09/19/20 16:24 Dose: 0.4 mg Documented by: BIN Discontinued Medications Clonazepam (Clonazepam 0.5 Mg Tablet) 0.5 mg PO NOW ONE Stop: 09/19/20 16:38 Last Admin: 09/19/20 16:55 Dose: 0.5 mg Documented by: MEGHA Consultations Consultation #1: Patient is dialysis patient and missed his run this morning and presents with suggestion of fluid overload as evidenced by increased work of breathing, crackles in bilateral bases, tachypnea, hypoxemia, elevated BNP and chest x-ray suggestive of fluid overload. Over the course of the visit he has developed some increased difficulty and is now on 2 L of supplemental oxygen. Patient would routinely get his dialysis in [place] and has been hospitalized at [facility], however they have no bed availability until at least tomorrow and this patient will likely need dialysis tonight. [facility] to help and I spoke with hospitalist and facilities maintenance worker and we appreciate their assistance in helping care for this gentleman Vital Signs Vital signs: Vital Signs - 8 hr 09/19/20 14:41 09/19/20 16:24 09/19/20 16:36 Temperature 96.7 F L Pulse Rate 47 L 55 L 47 L Respiratory Rate 19 19 Blood Pressure 132/63 145/72 H Pulse Oximetry 93 92 09/19/20 17:00 09/19/20 17:01 09/19/20 17:30 Temperature Pulse Rate 56 L 56 L 57 L Respiratory Rate 18 19 24 Blood Pressure 152/67 H Pulse Oximetry 93 92 92 09/19/20 17:31 Temperature Pulse Rate 58 L Respiratory Rate 23 Blood Pressure 141/66 H Pulse Oximetry 92 MDM - Chest Pain Lab Data Result diagrams: 09/19/20 15:02 09/19/20 15:02 Labs: Lab Results 09/19/20 09/19/20 09/19/20 Range/Units 15:02 15:02 15:02 WBC 4.4 L (4.5-11.0) X10^3/uL RBC 4.07 L (4.5-5.9) X10^6/uL Hgb 12.5 L (13.5-17.5) g/dL Hct 37.8 L (41-53) % MCV 92.6 (80-100) fL MCH 30.6 (26-34) PG MCHC 33.0 (30-36) % RDW 16.0 H (11.6-14.8) % Plt Count 164 (150-400) X10^3/uL Neut % (Auto) 75.3 H (50-75) % Lymph % (Auto) 15.6 L (25-40) % [place] % (Auto) 7.0 (3-14) % Eos % (Auto) 1.2 L (2-4) % Baso % (Auto) 0.9 (0-2) % Neut # (Auto) 3300 (0991-9304) /uL Lymph # (Auto) 700 L (2850-7232) /uL [place] # (Auto) 300 (0-900) /uL Eos # (Auto) 100 (0-450) /uL Baso # (Auto) 0 (0-100) /uL PT 12.3 (10.1-12.7) SECONDS INR 1.1 (0.9-1.3) APTT 35 D (26.4-36.2) SECONDS VBG pH (7.33-7.43) VBG pCO2 (45-50) mmHg VBG pO2 (35-45) mmHg VBG HCO3 (23-28) mmol/L VBG Total CO2 (24-29) mmol/L VBG O2 Saturation (70-75) % VBG Base Excess (0-4) mmol/L Sodium 138 (137-145) mmol/L Potassium 4.2 (3.4-5.1) mmol/L Chloride 102 (98-107) mmol/L Carbon Dioxide 23 (22-32) mmol/L BUN 70 H (9-20) mg/dL Creatinine 7.04 H (0.66-1.25) mg/dL Estimated GFR 7.7 L (>60) mL/min BUN/Creatinine Ratio 9.9 (6-22) Glucose 125 H (80-110) mg/dL Calcium 8.0 L (8.4-10.2) mg/dL Total Bilirubin 0.5 (0.2-1.3) mg/dL AST 19 (17-59) IU/L ALT 11 (<50) IU/L Alkaline Phosphatase 115 (38-126) U/L Total Creatine Kinase 90 (55-170) U/L CK-MB (CK-2) TNP CK-MB (CK-2) Rel Index TNP Troponin I 0.043 H (0.01-0.034) ng/mL NT-Pro-B Natriuret Pep 03185 H (<125) pg/mL Total Protein 6.6 (6.3-8.2) g/dL Albumin 3.3 L (3.5-5.0) g/dL Globulin 3.3 (1.7-4.1) g/dL Albumin/Globulin Ratio 1.0 (1.0-2.8) Lipase 40 (23-300) U/L Procalcitonin 0.44 (<0.5) ng/mL 09/19/20 Range/Units 15:09 WBC (4.5-11.0) X10^3/uL RBC (4.5-5.9) X10^6/uL Hgb (13.5-17.5) g/dL Hct (41-53) % MCV (80-100) fL MCH (26-34) PG MCHC (30-36) % RDW (11.6-14.8) % Plt Count (150-400) X10^3/uL Neut % (Auto) (50-75) % Lymph % (Auto) (25-40) % [place] % (Auto) (3-14) % Eos % (Auto) (2-4) % Baso % (Auto) (0-2) % Neut # (Auto) (4791-2814) /uL Lymph # (Auto) (8886-4113) /uL [place] # (Auto) (0-900) /uL Eos # (Auto) (0-450) /uL Baso # (Auto) (0-100) /uL PT (10.1-12.7) SECONDS INR (0.9-1.3) APTT (26.4-36.2) SECONDS VBG pH 7.34 (7.33-7.43) VBG pCO2 47.0 (45-50) mmHg VBG pO2 40 (35-45) mmHg VBG HCO3 25 (23-28) mmol/L VBG Total CO2 27 (24-29) mmol/L VBG O2 Saturation 71 (70-75) % VBG Base Excess 0.0 (0-4) mmol/L Sodium (137-145) mmol/L Potassium (3.4-5.1) mmol/L Chloride (98-107) mmol/L Carbon Dioxide (22-32) mmol/L BUN (9-20) mg/dL Creatinine (0.66-1.25) mg/dL Estimated GFR (>60) mL/min BUN/Creatinine Ratio (6-22) Glucose (80-110) mg/dL Calcium (8.4-10.2) mg/dL Total Bilirubin (0.2-1.3) mg/dL AST (17-59) IU/L ALT (<50) IU/L Alkaline Phosphatase (38-126) U/L Total Creatine Kinase (55-170) U/L CK-MB (CK-2) CK-MB (CK-2) Rel Index Troponin I (0.01-0.034) ng/mL NT-Pro-B Natriuret Pep (<125) pg/mL Total Protein (6.3-8.2) g/dL Albumin (3.5-5.0) g/dL Globulin (1.7-4.1) g/dL Albumin/Globulin Ratio (1.0-2.8) Lipase (23-300) U/L Procalcitonin (<0.5) ng/mL Critical Care Time Critical Care Time Critical Care Time: Yes Total Critical Care Time: 30 Attestation: The high probability of a clinically significant, sudden or life threatening deterioration of the [CV] system(s) required my full and direct attention, intervention and personal management. The aggregate critical care time was [30] minutes. This time is in addition to time spent performing reported procedures but includes the following: [x] Data Review and interpretation [x] Patient assessment and monitoring of vital signs [x] Documentation [x] Medication orders and management Discharge Plan Departure Patient Disposition: [facility] Clinical Impression: Pulmonary edema Qualifiers: Chronicity: acute Qualified Code(s): J81.0 - Acute pulmonary edema Acute renal failure Qualifiers: Acute renal failure type: unspecified Qualified Code(s): N17.9 - Acute kidney failure, unspecified Prescriptions: No Action acetaminophen 325 mg Tablet 650 mg PO Q4H MDD 3000 mg PRN (Reason: Fever Or Pain) RF: 0 insulin glargine 100 unit/mL Solution 55 units Sub-Q DAILY RF: 0 hydralazine 25 mg Tablet 25 mg PO TID RF: 0 clopidogrel 75 mg tablet 75 mg PO DAILY RF: 0 simvastatin 40 mg Tablet 40 mg PO QPM RF: 0 tamsulosin 0.4 mg capsule,extended release 24hr 0.4 mg PO QPM RF: 0 ascorbic acid (vitamin C) 250 mg Tablet 250 mg PO DAILY RF: 0 amlodipine 10 mg Tablet 10 mg PO QPM RF: 0 ferrous sulfate 325 mg (65 mg iron) Tablet 325 mg PO BID RF: 0 esomeprazole magnesium [Nexium] 40 mg Capsule,Delayed Release(Dr/Ec) 40 mg PO DAILY RF: 0 levothyroxine 200 mcg Tablet 200 mcg PO DAILY RF: 0 multivitamin with minerals Tablet 1 tab PO DAILY RF: 0 mirtazapine 15 mg tablet,disintegrating 15 mg PO BEDTIME RF: 0 fluticasone propionate 50 mcg/actuation spray,suspension 1 spray Intranasal BID RF: 0 bupropion HCl 200 mg Tablet Extended Release 12 Hr 200 mg PO QPM RF: 0 metoprolol tartrate 25 mg Tablet 25 mg PO BID RF: 0 melatonin 5 mg Tablet 5 mg PO BEDTIME RF: 0 cholecalciferol (vitamin D3) 2,000 unit Capsule 2,000 unit PO DAILY RF: 0 Flush 1 dose DAILY RF: 0 Humalog U-100 Insulin 1 dose Sub-Q DIRECTED RF: 0 loperamide 2 mg Capsule 2 mg PO Q4H PRN (Reason: Diarrhea) RF: 0 clonazepam 0.5 mg Tablet 0.5 mg PO TID MDD 3 PRN (Reason: Anxiety) RF: 0 magnesium hydroxide [Milk of Magnesia] 400 mg/5 mL Suspension 30 ml PO PRN PRN (Reason: Constipation) RF: 0 bisacodyl 10 mg Suppository 10 mg UT DAILY PRN (Reason: Constipation) RF: 0 sodium phosphates [Fleet Enema] 19-7 gram/118 mL Enema 1 dose UT PRN PRN (Reason: Constipation) RF: 0 oxycodone 5 mg Tablet 5 mg PO Q4H PRN (Reason: pain level 3-6) RF: 0 oxycodone 5 mg Tablet 10 mg PO Q4H PRN (Reason: Pain (Scale Score 7-10)) RF: 0 bisacodyl 5 mg Tablet 5 - 10 mg PO PRN PRN (Reason: Constipation) RF: 0 albuterol sulfate 1 vial Inhalation Q4H PRN (Reason: Shortness Of Breath) RF: 0 piperacillin-tazobactam [Zosyn] 3.375 gram Recon Soln 2.25 gram IV Q8H Qty: 0 RF: 0 Referrals: Mayito Boss MD [Primary Care Provider] -
--- NOTE | 2020-09-19 14:39 | DI.RAD.S_ITS ---
PROCEDURE: XR CHEST 1V INDICATIONS: SOB / Chest Pain TECHNIQUE: One view of the chest was acquired. COMPARISON: [facility], , XR CHEST 1V, 05/10/2020, 16:44. FINDINGS: Surgical changes and devices: Right IJ dialysis catheter. Lungs and pleura: Diffuse interstitial thickening and fissural fluid is present. There are bilateral pleural effusions. Retrocardiac opacity and bilateral perihilar alveolar opacities are present, more extensive compared to the prior study. No pneumothorax. Mediastinum: There is central venous cephalization and congestion. Heart size is partially obscured but felt to be markedly enlarged. Aortic arch calcification. Bones and chest wall: No suspicious bony lesions. Overlying soft tissues appear unremarkable. IMPRESSION: 1. Interval placement of dialysis catheter since the prior study. 2. Marked cardiomegaly. 3. Central vascular and interstitial thickening, bilateral perihilar opacities, and bilateral effusions suggest CHF and/or volume overload. Dictated by: Lamar Peters M.D. on 09/19/2020 at 15:35 Approved by: Lamar Peters M.D. on 09/19/2020 at 15:38
[2020-09-19 15:13] LABS: Add Manual Diff / Slide Review NO; Basophils Absolute Auto 0 /uL (0-100); Basophils Percent Auto 0.9 % (0-2); Eosinophils Absolute Auto 100 /uL (0-450); Eosinophils Percent Auto 1.2 % (2-4); Hematocrit 37.8 % (41-53); Hemoglobin 12.5 g/dL (13.5-17.5); Lymphocytes Absolute Auto 700 /uL (1100-4500); Lymphocytes Percent Auto 15.6 % (25-40); Mean Corpuscular Hemoglobin 30.6 PG (26-34); Mean Corpuscular Volume 92.6 fL (80-100); Monocytes Absolute Auto 300 /uL (0-900); Neutrophils Absolute Auto 3300 /uL (1500-7000); Neutrophils Percent Auto 75.3 % (50-75); Platelet Count 164 X10^3/uL (150-400); Red Blood Cell Count 4.07 X10^6/uL (4.5-5.9); White Blood Cell Count 4.4 X10^3/uL (4.5-11.0)
[2020-09-19 15:19] LABS: INR 1.1 (0.9-1.3); Prothrombin Time 12.3 SECONDS (10.1-12.7)
[2020-09-19] MEDS: SODIUM CHLORIDE 0.9% 1,000 ML 150 ML IV (15:20)
[2020-09-19 15:22] LABS: PTT Partial Thromboplastin Tim 35 SECONDS (26.4-36.2)
[2020-09-19 15:24] LABS: Alanine Aminotransferase 11 IU/L (<50); Albumin 3.3 g/dL (3.5-5.0); Alkaline Phosphatase 115 U/L (38-126); Aspartate Aminotransferase 19 IU/L (17-59); BUN Creatinine Ratio 9.9 (6-22); Bilirubin Total 0.5 mg/dL (0.2-1.3); Blood Urea Nitrogen 70 mg/dL (9-20); Carbon Dioxide 23 mmol/L (22-32); Chloride 102 mmol/L (98-107); Creatine Kinase 90 U/L (55-170); Estimated Glomerular Filt Rate 7.7 mL/min (>60); Globulin 3.3 g/dL (1.7-4.1); Glucose 125 mg/dL (80-110); HEMOLYSIS < 15 (0-50); Lipase 40 U/L (23-300); Potassium 4.2 mmol/L (3.4-5.1); Sodium 138 mmol/L (137-145); Total Protein 6.6 g/dL (6.3-8.2)
[2020-09-19 15:36] LABS: Troponin I 0.043 ng/mL (0.01-0.034)
[2020-09-19 15:46] LABS: HCO3 VBG 25 mmol/L (23-28); PO2 VBG 40 mmHg (35-45); Total CO2 VBG 27 mmol/L (24-29); pH VBG 7.34 (7.33-7.43)
[2020-09-19 15:47] LABS: Oxygen Saturation VBG 71 % (70-75)
[2020-09-19 15:50] LABS: Procalcitonin 0.44 ng/mL (<0.5)
[2020-09-19 15:59] LABS: NT-proBNP (BNP-Adult 18+) 56900 pg/mL (<125)
[2020-09-19] MEDS: NITROGLYCERIN 0.4 MG SL TAB SL (16:24)
[2020-09-19] MEDS: clonazePAM 0.5 MG TABLET PO (16:55)
--- NOTE | 2020-09-19 17:45 | PC.NURSE ---
provided diet coke, 2 peanut butters and 3 cracker packs.
[2020-09-19 18:07] LABS: COVID19 -Nasal RAPID Negative (Negative)
--- NOTE | 2020-09-19 19:12 | PC.NURSE ---
placed on 2lnc. right cw dialysis catheter capped. dressing clean dry and intact.
== END 2020-09-19 22:30 | disposition short-term general hospital (02) ==
PROVIDERS: Emergency Provider Emergency Medicine; Family Provider Internal Medicine; PCP Internal Medicine
DX: J81.0 Acute pulmonary edema (principal); N17.9 Acute kidney failure, unspecified; R06.00 Dyspnea, unspecified
CPT/HCPCS: 36415; 71045; 80053; 82550; 82805; 83690; 83880; 84145; 84484; 85025; 85610; 85730; 87635; 93005; 93010; 96360; 96361; 99284; 99291; C9803